=== PATIENT | female | born 1965 | race Caucasian/White ===

== ENCOUNTER → 2017-06-24 14:30 | Outpatient (CLI) | payer OTHER, SELFPAY ==
[2017-06-24 16:52] LABS: Free T3 2.1 pg/mL (2.18-3.98); T4 Free Direct 0.81 ng/dL (0.76-1.46); Thyroid Stim Hormone (TSH) 2.55 uIU/mL (0.358-3.74)
== END ==
PROVIDERS: Family Provider Family Medicine; PCP Family Medicine; Visit Provider Obstetrics & Gynecology
DX: N91.1 Secondary amenorrhea (principal)
CPT/HCPCS: 36415; 84439; 84443; 84481

== ENCOUNTER → 2017-08-18 09:10 | Outpatient (CLI) | payer OTHER, SELFPAY ==
[2017-08-18 11:15] LABS: Free T3 2.2 pg/mL (2.18-3.98); Thyroid Stim Hormone (TSH) 2.26 uIU/mL (0.358-3.74)
[2017-08-19 12:15] LABS: Progesterone Level 12.91 ng/mL (See Comment)
== END ==
PROVIDERS: Visit Provider Obstetrics & Gynecology
DX: G43.809 Other migraine, not intractable, without status migrainosus (principal); T38.5X5A Adverse effect of other estrogens and progestogens, initial encounter; N94.3 Premenstrual tension syndrome
CPT/HCPCS: 36415; 82670; 83036; 84144; 84443; 84481

== ENCOUNTER → 2017-11-14 07:29 | Outpatient (CLI) | payer OTHER, SELFPAY | PROVIDERS: Family Provider Family Medicine; PCP Family Medicine; Visit Provider Obstetrics & Gynecology | DX: Z12.31 Encounter for screening mammogram for malignant neoplasm of breast (principal) | CPT/HCPCS: 77063; 77067 ==

== ENCOUNTER → 2017-11-22 09:55 | Outpatient (CLI) | payer OTHER, SELFPAY | PROVIDERS: Family Provider Family Medicine; PCP Family Medicine; Visit Provider Obstetrics & Gynecology | DX: N60.02 Solitary cyst of left breast (principal) | CPT/HCPCS: 76642 ==

== ENCOUNTER 2017-12-09 07:31 | Day surgery (SDC) | payer OTHER, SELFPAY ==
[2017-12-09 08:01] VITALS: BP 113/81; PULSE 78; RESP 12; TEMP 36.6; O2SAT 100
[2017-12-09 09:00] VITALS: BP 100/64; BP 113/81; PULSE 71; RESP 16; TEMP 36.7; O2SAT 94
--- NOTE | 2017-12-09 09:01 | OP.ENDO_ITS ---
Patient Name: Jenny Gibson Procedure Date: 12/09/2017 8:21 AM Date of : 1965 Age: 52 Procedure: Colonoscopy Indications: Screening for malignant neoplasm in the colon, Screening for colorectal malignant neoplasm Providers: Dayron Clayton MD Referring MD: Cornelia Smith Medicines: Monitored Anesthesia Care Patient Profile: Last Colonoscopy: none. The patient's first colonoscopy is today. Complications: No immediate complications. Procedure: Pre-Anesthesia Assessment: - Prior to the procedure, a History and Physical was performed, and patient medications and allergies were reviewed. The patient's tolerance of previous anesthesia was also reviewed. The risks and benefits of the procedure and the sedation options and risks were discussed with the patient. All questions were answered, and informed consent was obtained. Prior Anticoagulants: The patient has taken no previous anticoagulant or antiplatelet agents. After reviewing the risks and benefits, the patient was deemed in satisfactory condition to undergo the procedure. After I obtained informed consent, the scope was passed under direct vision. Throughout the procedure, the patient's blood pressure, pulse, and oxygen saturations were monitored continuously. The colonoscope was introduced through the anus and advanced to the cecum, identified by appendiceal orifice and ileocecal valve. The colonoscopy was performed without difficulty. The patient tolerated the procedure well. The quality of the bowel preparation was adequate. Scope In: 8:39:32 AM Scope Withdrawal Time 0 hours 6 minutes 20 seconds Scope Out: 8:52:39 AM Total Procedure Duration Time 0 hours 13 minutes 7 seconds Findings: The colon (entire examined portion) appeared normal. The retroflexed view of the distal rectum and anal verge was normal and showed no anal or rectal abnormalities. Impression: - The entire examined colon is normal. - The distal rectum and anal verge are normal on retroflexion view. - No specimens collected. Recommendation: - Repeat colonoscopy in 10 years. - Resume regular diet. - Continue present medications. Procedure Code(s): --- Professional --- 94678, PT, Colonoscopy, flexible; diagnostic, including collection of specimen(s) by brushing or washing, when performed (separate procedure) Diagnosis Code(s): --- Professional --- Z12.11, Encounter for screening for malignant neoplasm of colon CPT copyright 2017 [employer]. All rights reserved. The codes documented in this report are preliminary and upon promotions specialist review may be revised to meet current compliance requirements. MD Dayron Rosario MD 12/09/2017 9:01:20 AM This report has been signed electronically. Number of Addenda: 0 Note Initiated On: 12/09/2017 8:21 AM
[2017-12-09 09:05] VITALS: BP 113/81; BP 95/66; PULSE 70; RESP 16; O2SAT 98
[2017-12-09 09:10] VITALS: BP 113/81; BP 92/62; PULSE 70; RESP 16; O2SAT 95
[2017-12-09 09:15] VITALS: BP 100/55; BP 113/81; PULSE 66; RESP 18; TEMP 36.8; O2SAT 99
[2017-12-09 09:36] VITALS: BP 113/81
== END 2017-12-09 09:42 | disposition home or self-care (01) ==
LOC: EN 07:31 → AC 07:32
PROVIDERS: Family Provider Family Medicine; PCP Family Medicine; Visit Provider Surgery
PROC: 0DJD8ZZ Inspection of Lower Intestinal Tract, Via Natural or Artificial Opening Endoscopic (ICD-10-PCS; CPT 45378; principal; 2017-12-09 08:25)
DX: Z12.11 Encounter for screening for malignant neoplasm of colon (principal)
CPT/HCPCS: 45378; J7120

== ENCOUNTER → 2017-12-15 11:17 | Outpatient (CLI) | payer OTHER, SELFPAY ==
[2017-12-21 12:02] LABS: HPV Reflexed? NOT INDICATED
== END ==
PROVIDERS: Family Provider Family Medicine; PCP Family Medicine; Visit Provider Obstetrics & Gynecology
DX: Z12.4 Encounter for screening for malignant neoplasm of cervix (principal)
CPT/HCPCS: 88175; G0145

== ENCOUNTER → 2018-01-05 09:55 | Outpatient (CLI) | payer OTHER, SELFPAY ==
--- NOTE | 2018-01-05 10:02 | US_ITS ---
STUDY: ULTRASOUND OF THE FEMALE PELVIS - COMPLETE REASON FOR EXAM: Female, 52 years old. Abnormal Pap. Pelvic pain LMP: 01/01/2018 TECHNIQUE: Transabdominal and Transvaginal TECHNICAL QUALITY: Adequate. COMPARISON: None. FINDINGS: The uterus is anteverted and is in a midline position. The uterus measures 9 x 5.2 cm. Normal uterine cervix. The endometrium measures 5 mm in thickness, and is hyperechoic. There is no demonstrated endometrial mass. Heterogeneous uterus is noted with multiple fibroids. Largest is noted in the posterior wall measuring 2.7 x 2.4 x 2.1 cm. I.U.D. - The patient does not have an I.U.D. The right ovary is visualized. The right ovary measures 2.3 x 3 x 2.0 cm. There is no right ovarian cyst or ovarian mass. There is no visualized right adnexal mass or complex lesion. There is normal arterial and normal venous vascularity. The left ovary is visualized. The left ovary measures 2.7 x 2.1 x 2.4 cm. There is no left ovarian cyst or ovarian mass. There is no visualized left adnexal mass or complex lesion. There is normal arterial and normal venous vascularity. There is no fluid in the cul-de-sac. The pre void volume of the bladder was 164 ml. ml. Polycystic ovary disease: No. US/Transvaginal Non- IMPRESSION: Uterine fibroids. Otherwise, unremarkable exam Electronically Signed: Sebastian Bolivar DO at 11:47 EDT Tel , Service support ,
--- NOTE | 2018-01-05 10:02 | US_ITS ---
STUDY: ULTRASOUND OF THE FEMALE PELVIS - COMPLETE REASON FOR EXAM: Female, 52 years old. Abnormal Pap. Pelvic pain LMP: 01/01/2018 TECHNIQUE: Transabdominal and Transvaginal TECHNICAL QUALITY: Adequate. COMPARISON: None. FINDINGS: The uterus is anteverted and is in a midline position. The uterus measures 9 x 5.2 cm. Normal uterine cervix. The endometrium measures 5 mm in thickness, and is hyperechoic. There is no demonstrated endometrial mass. Heterogeneous uterus is noted with multiple fibroids. Largest is noted in the posterior wall measuring 2.7 x 2.4 x 2.1 cm. I.U.D. - The patient does not have an I.U.D. The right ovary is visualized. The right ovary measures 2.3 x 3 x 2.0 cm. There is no right ovarian cyst or ovarian mass. There is no visualized right adnexal mass or complex lesion. There is normal arterial and normal venous vascularity. The left ovary is visualized. The left ovary measures 2.7 x 2.1 x 2.4 cm. There is no left ovarian cyst or ovarian mass. There is no visualized left adnexal mass or complex lesion. There is normal arterial and normal venous vascularity. There is no fluid in the cul-de-sac. The pre void volume of the bladder was 164 ml. ml. Polycystic ovary disease: No. US/Pelvic (Non ) IMPRESSION: Uterine fibroids. Otherwise, unremarkable exam Electronically Signed: Sebastian Bolivar DO at 11:47 EDT Tel , Service support ,
== END ==
PROVIDERS: Family Provider Family Medicine; PCP Family Medicine; Referring Provider Obstetrics & Gynecology; Visit Provider Obstetrics & Gynecology
DX: N92.6 Irregular menstruation, unspecified (principal); N91.2 Amenorrhea, unspecified
CPT/HCPCS: 76830; 76856; 93976

== ENCOUNTER → 2018-07-14 13:33 | Outpatient (CLI) | payer OTHER, SELFPAY ==
--- NOTE | 2018-07-14 13:36 | RAD_ITS ---
STUDY: X-RAY - RIGHT HAND REASON FOR EXAM: Female, 52 years old. Pain TECHNIQUE: 3 view(s) of the hand. COMPARISON: None. FINDINGS: Normal radiocarpal articulation. Normal distal radioulnar joint. Normal visualized carpal bones. Normal carpal articulations Normal carpometacarpal articulation of the thumb. Normal second through fifth carpometacarpal joints. Normal metacarpi. Normal metacarpophalangeal joint of the thumb. Normal interphalangeal joint of the thumb. Normal proximal and distal phalanges of the thumb. Normal metacarpophalangeal joints of the second through fifth fingers. PIP and DIP joint arthrosis, most pronounced in the distal interphalangeal joint of the fifth finger. Normal phalanges of the second through fifth fingers. The soft tissue structures are unremarkable. RAD/Hand Min 3 Views IMPRESSION: Distal arthrosis, no demonstrated fracture or suspicious osseous lesion Electronically Signed: Frank Narayan MD at 14:13 EDT , Service support ,
== END ==
PROVIDERS: Family Provider Family Medicine; PCP Family Medicine; Referring Provider Family Medicine; Visit Provider Family Medicine
DX: M79.641 Pain in right hand (principal)
CPT/HCPCS: 73130

== ENCOUNTER → 2018-08-08 15:48 | Outpatient (CLI) | payer OTHER, SELFPAY ==
--- NOTE | 2018-08-08 16:03 | BD_ITS ---
STUDY: DUAL ENERGY X-RAY ABSORPTIOMETRY / DXA REASON FOR EXAM: Female, 53 years old. Loss of height. History of stress fractures. TECHNIQUE: Bone Mineral Density (BMD) measurements of lumbar spine and bilateral hips were obtained. COMPARISON: Comparison is made with prior study dated October 07, 2011. FINDINGS: Lumbar Spine (L1-L4): g/cm2 (1.231) / T-score (0.4) / Z-score (1.0) Findings are suggestive of normal bone density with a low fracture risk. Left Femur Total: g/cm2 (0.989) / T-score (-0.1) / Z-score (0.4) Left Femoral Neck: g/cm2 (0.949) / T-score (-0.6) / Z-score (0.2) Right Femur Total: g/cm2 (0.965) / T-score (-0.3) / Z-score (0.2) Right Femoral Neck: g/cm2 (0.881) / T-score (-1.1) / Z-score (0.3) The T-Scores on the most recent prior examination were: Lumbar Spine (L1-L4): There has been improvement of bone density since the previous examination. Left Femur Total: which represents an improvement of 2.8%. Right Femur Total: which represents an improvement of 7.2%. BD/Dexa Bone Density Study IMPRESSION: The patient is considered osteopenic as outlined below according to World Felix Organization (WHO) criteria with a low fracture risk. There has been improvement of bone density since the previous examination. Reference Information: The T-score is the number of standard deviations above or below the standard which is normal for young adults at their peak bone mineral density. The World Health Organization (WHO) interprets the T-scores as follows: Above -1 Normal bone density Between -1 and -2.5 Osteopenia Equal to / or below -2.5 Osteoporosis As a practical clinical guideline, osteopenia may be graded as follows: Mild -1 through -1.5 Moderate -1.6 through -2.0 Severe -2.1 through -2.4 The Z-score is the number of standard deviations above or below age-matched controls. A Z-score of less than -1.5 would be considered abnormal. References: 1. NIH Osteoporosis and Related Bone Diseases http://www.osteo.org 2. International Society for Clinical Densitometry http://www.iscd.org 3. National Osteoporosis Foundation http://www.nof.org Electronically Signed: Jose A Barnes, at 8:19 EDT , Service support ,
== END ==
PROVIDERS: Family Provider Family Medicine; PCP Family Medicine; Visit Provider Family Medicine
DX: M85.80 Other specified disorders of bone density and structure, unspecified site (principal)
CPT/HCPCS: 77080

== ENCOUNTER → 2018-08-10 12:41 | Outpatient (CLI) | payer OTHER, SELFPAY ==
--- NOTE | 2018-08-10 12:42 | RAD_ITS ---
STUDY: X-RAY - RIGHT TIBIA AND FIBULA REASON FOR EXAM: Female, 53 years old. Pain along the distal tibia. No known injuries. TECHNIQUE: 2 view(s) of the tibia and fibula were obtained. COMPARISON: None. FINDINGS: Normal visualized tibia. Normal visualized fibula. The soft tissue structures are unremarkable. RAD/Tibia & Fibula 2 Views IMPRESSION: Normal x-ray examination of the tibia and fibula. Electronically Signed: Jose A Barnes, at 14:06 EDT , Service support ,
== END ==
PROVIDERS: Family Provider Family Medicine; PCP Family Medicine; Referring Provider Physician Assistant; Visit Provider Physician Assistant
DX: M79.661 Pain in right lower leg (principal)
CPT/HCPCS: 73590

== ENCOUNTER 2018-08-15 11:29 | Outpatient (RCR) | payer OTHER, SELFPAY | END 2018-08-18 23:59 | LOC: NS 11:29 | PROVIDERS: Family Provider Family Medicine; PCP Family Medicine; Visit Provider Family Medicine | DX: E66.9 Obesity, unspecified (principal); Z68.29 Body mass index [BMI] 29.0-29.9, adult; Z71.3 Dietary counseling and surveillance | CPT/HCPCS: 97802 ==

== ENCOUNTER → 2018-08-17 15:37 | Outpatient (CLI) | payer OTHER, SELFPAY ==
--- NOTE | 2018-08-17 15:43 | MRI_ITS ---
PROCEDURE: MRI LOWER EXTREMITY RIGHT TIBIA/FIBULA REASON FOR EXAM: Female, 53 years old. . Pain. Injury. TECHNIQUE: Standardized fat and water weighted pulse sequences were obtained in all 3 orthogonal planes. COMPARISON: X-ray August 10, 2018 FINDINGS: There is marrow edema of the distal shaft of the tibia, series 3 images and . There is adjacent periosteal edema. There is anterior subcutaneous edema. Normal fibula, without a periosteal, cortical or cancellous marrow abnormality. Normal anterior, lateral, and posterior calf compartments, with normal muscles, crural fascia and intermuscular septa. There is no solid, cystic or lipomatous mass lesion of the subcutis adipose space. MRI/Lower Ext/No Jt/w/o IMPRESSION: Stress fracture of the distal tibia. Electronically Signed: Isai Begum MD at 22:20 EDT , Service support ,
== END ==
PROVIDERS: Family Provider Family Medicine; PCP Family Medicine; Referring Provider Physician Assistant; Visit Provider Physician Assistant
DX: S86.891A Other injury of other muscle(s) and tendon(s) at lower leg level, right leg, initial encounter (principal)
CPT/HCPCS: 73718

== ENCOUNTER 2018-08-29 13:57 | Outpatient (RCR) | payer OTHER, SELFPAY | END 2018-09-17 23:59 | LOC: NS 13:57 | PROVIDERS: Family Provider Family Medicine; PCP Family Medicine; Visit Provider Family Medicine | DX: E66.9 Obesity, unspecified (principal); Z68.29 Body mass index [BMI] 29.0-29.9, adult; Z71.3 Dietary counseling and surveillance | CPT/HCPCS: 97803 ==

== ENCOUNTER 2018-10-03 10:00 | Outpatient (RCR) | payer OTHER, SELFPAY | END 2018-10-18 23:59 | LOC: NS 10:00 | PROVIDERS: Family Provider Family Medicine; PCP Family Medicine; Visit Provider Family Medicine | DX: E66.9 Obesity, unspecified (principal); Z68.29 Body mass index [BMI] 29.0-29.9, adult; Z71.3 Dietary counseling and surveillance | CPT/HCPCS: 97803 ==

== ENCOUNTER 2018-10-31 09:57 | Outpatient (RCR) | payer OTHER, SELFPAY | END 2018-10-31 23:59 | disposition home or self-care (01) | LOC: NS 09:57 | PROVIDERS: Family Provider Family Medicine; PCP Family Medicine; Visit Provider Family Medicine | DX: E66.9 Obesity, unspecified (principal); Z68.29 Body mass index [BMI] 29.0-29.9, adult; Z71.3 Dietary counseling and surveillance | CPT/HCPCS: 97803 ==

== ENCOUNTER 2018-11-09 17:00 | Outpatient (RCR) | payer OTHER, SELFPAY ==
--- NOTE | 2018-09-25 07:33 | HP.PTREVAL ---
KETAN Howard, It has been my pleasure to treat SHIRA MASON over the last 6 visits for R medial tibial stress syndrome. Please see the progress note below for an update on the physical therapy plan of care! Subjective: Hasn't worn boot in a week. Intermittently prior to that on vacation. No more deep ache. Does get a spasm now and then without reason transiently. Some days are perfect adn the next day may get spasms. Hasn't started mowing, has a big yard and has self propelled walk behind. Doing HEP daily. Activities otherwise pretty normal. When healthy enjoys video tapes and TM/low impact cardio. Objective/Function: Full and symmetrical aROM ankles and strength. No pain with contractions. Steps normal and reciprocal, walks without antalgia. Pt doing well but needs to be weaned back to ex adn walking. Plan Plan: Pt to add foot drills at home and start to wean back to mowing and walking per instruct adn call if problems. 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 Plan to see her for 3-4 visits in October to teach gym program. She will call prior if pain returns. Goals Goal 1:: Walk with boot without pain x one week. Goal Time Frame: 2-4 Weeks Goal Progress: Goal Met Goal 2:: 5 degrees DF AROM withotu pain R ankle Goal Time Frame: 4-6 Weeks Goal Progress: Goal Met Goal 3:: Pt feel 90% better in leg pain and ready to reinitiate walking for fitness Goal Time Frame: 4-6 Weeks Goal Progress: Progressing Anticipated Interventions Patient/Client Instruction: Educate patient on: Condition, Plan of Care For the Purpose of:: To decrease pain, To decrease swelling/inflammation, To improve muscle performance and motor function, To improve performance and independence with ADL's Therapeutic Exercise to Include: Strength training, Flexibilty training, Gait and locomotor training, Passive ROM, Active ROM For the Purpose of:: To decrease pain, To decrease swelling/inflammation, To improve ability of physical actions for home/community/work/leisure, To improve gait and locomotor functions Manual Therapy Techniques to Include: Mobilization, Soft tissue mobilization For the Purpose of:: To decrease pain, To improve muscle performance and motor function, To improve ability of physical actions for home/community/work/leisure Orthotics: Shoe insert For the Purpose of:: To decrease pain Please do not hesitate to contact me at [phone] by phone or if you have questions or concerns regarding this new plan of care! Sincerely, Richard Atwood, DPT, OCS, CSCS
--- NOTE | 2018-11-09 17:33 | HP.PTDCSUM ---
HP - PT D/C Summary It has been my pleasure to treat SHIRA MASON under orders from KETAN Howard, for the diagnosis of R medial tibial stress syndrome for a total of 7 visit(s). Discharge Date: 11/09/18 Please see the following information for a summary of their discharge status. - Subjective Subjective: Got back to mowing adn feeling pretty good. Going days at a time without feeling grabby or pain. Rarely pain now. Mowed the whole yard Tuesday. Hasn't started walking yet but will. - Pain R medial ankle Pain Intensity (Out of 10): 0 - Overall Improvement % Improvement: 90 - Objective Objective/Function: Full and normal aROM adn strength B ankles. No unusua tenderness R to L shins. Walks normal - Goals Goal 1:: Walk with boot without pain x one week. Goal Progress: Goal Met Goal 2:: 5 degrees DF AROM withotu pain R ankle Goal Progress: Goal Met Goal 3:: Pt feel 90% better in leg pain and ready to reinitiate walking for fitness Goal Progress: Goal Met - Plan Plan: d/c to continue warm up for feet adn gradual walking program on own. - D/C Information Discharge Comments: Pt doing well with current loasd, will see endorcrinologist to see why this keeps happening. Will continue warm ups adn start gradual walking program. Will contact doctor if further problems. If there are questions or concerns regarding this patient's physical therapy, please feel free to call me at [phone]. Thank you for the referral of this patient. Sincerely, Richard Atwood, DPT, OCS, CSCS
== END 2018-11-09 19:00 | disposition home or self-care (01) ==
LOC: PT 17:00
PROVIDERS: Family Provider Family Medicine; PCP Family Medicine; Referring Provider Physician Assistant; Visit Provider Physician Assistant
DX: M76.819 Anterior tibial syndrome, unspecified leg (principal)
CPT/HCPCS: 97110; 97161; 97530

== ENCOUNTER → 2018-11-21 07:41 | Outpatient (CLI) | payer OTHER, SELFPAY ==
--- NOTE | 2018-11-21 07:44 | BI_ITS ---
MAMMOGRAPHY - BILATERAL SCREENING REASON FOR EXAM: Female, 53 years old. Routine annual screening examination. PERTINENT HISTORY: Non-contributory. TECHNIQUE: Digital bilateral breast shameka (3D mammographic acquisition) in the CC and MLO projections. 2-D mediolateral oblique (MLO) and craniocaudad (CC) views of both breasts were obtained. CAD: Full Field Digital Mammography with Computer Added Detection was performed. COMPARISON: Comparison is made with prior examination November 14, 2017 and November 11, 2016. FINDINGS: Breast Composition: The breasts are heterogeneously dense, which may obscure small masses. There is a 2 cm x 1.7 cm well-defined nodule in the upper outer aspect of the left breast. This is essentially unchanged. This was demonstrated to be a small cyst on prior ultrasounds of the left breast as well as MRI of the breast. No other significant abnormalities are identified. There has been no significant change since the prior study. BI/SCREEN MAMM (CAD) W/SHAMEKA BILAT IMPRESSION: Stable bilateral screening mammogram. Yearly follow-up mammogram recommended. (A) ASSESSMENT CATEGORY: BIRADS Category 2: Benign. A letter regarding these results will be sent to the patient by the facility within 30 days. Approximately 10% of breast cancers are not detected by mammography. A normal mammogram should not delay biopsy of a clinically suspicious abnormality. [id number] Electronically Signed: Jose A Barnes, at 10:01 EDT , Service support ,
== END ==
PROVIDERS: Family Provider Family Medicine; PCP Family Medicine; Referring Provider Obstetrics & Gynecology; Visit Provider Obstetrics & Gynecology
DX: Z12.31 Encounter for screening mammogram for malignant neoplasm of breast (principal)
CPT/HCPCS: 77063; 77067

== ENCOUNTER → 2018-12-19 13:44 | Outpatient (CLI) | payer OTHER, SELFPAY ==
[2018-12-22 13:11] LABS: HPV APTIMA, High Risk Negative (Negative)
== END ==
PROVIDERS: Visit Provider Obstetrics & Gynecology
DX: Z12.4 Encounter for screening for malignant neoplasm of cervix (principal)
CPT/HCPCS: 87624; 88175; G0145

== ENCOUNTER → 2019-01-15 07:45 | Outpatient (CLI) | payer OTHER, SELFPAY ==
[2019-01-15 09:46] LABS: Vitamin D,25 Hydroxy 24.1 ng/mL (29.95-100.01)
[2019-01-15 09:47] LABS: PTHIN 66.3 pg/mL (18.4-80.1)
== END ==
PROVIDERS: Family Provider Family Medicine; PCP Family Medicine; Referring Provider Internal Medicine Endocrinology, Diabetes & Metabolism; Visit Provider Internal Medicine Endocrinology, Diabetes & Metabolism
DX: E55.9 Vitamin D deficiency, unspecified (principal); M85.80 Other specified disorders of bone density and structure, unspecified site
CPT/HCPCS: 36415; 82306; 83970

== ENCOUNTER 2019-04-03 16:36 | Outpatient (RCR) | payer OTHER, SELFPAY ==
--- NOTE | 2019-04-04 06:59 | MASS.EVAL ---
Massage Therapy Evaluation: Initial Evaluation Date: 04/03/2019 /Age: 6 1965 Diagnosis: neck and shoulder pain Goals: decrease muscle tension and pain Plan: To be seen one time per month or as needed for a total of ten treatments.
--- NOTE | 2020-02-28 08:56 | MASS.DISCH ---
Massage Therapy Discharge Summary: Initial Evaluation Date: 04/03/2019 Diagnosis: NECK/BACK PAIN No. of Visits: ONE Date of last visit: 04/03/2019 This patient is being discharged from our care at the [facility]. Thank you, Martina Dang LMT
== END 2019-04-03 19:00 | disposition home or self-care (01) ==
LOC: MASS 16:36
PROVIDERS: Family Provider Family Medicine; PCP Family Medicine; Referring Provider Family Medicine; Visit Provider Family Medicine
DX: M54.2 Cervicalgia (principal); M54.6 Pain in thoracic spine
CPT/HCPCS: 97124

== ENCOUNTER → 2019-08-31 09:14 | Outpatient (CLI) | payer OTHER, SELFPAY ==
[2019-08-31 10:18] LABS: Vitamin B12 641 pg/mL (211-911); Vitamin D,25 Hydroxy 40.6 ng/mL
[2019-08-31 10:26] LABS: Cholesterol 242 mg/dL (200); High Density Lipoprotein 59 mg/dL; T4 Free Direct 0.94 ng/dL (0.76-1.46); Triglycerides 139 mg/dL; Very Low Density Lipoprotein 28 mg/dL (5-40)
== END ==
PROVIDERS: PCP Family Medicine; Referring Provider Family Medicine; Visit Provider Family Medicine
DX: E03.9 Hypothyroidism, unspecified (principal); R53.83 Other fatigue; E55.9 Vitamin D deficiency, unspecified; E78.5 Hyperlipidemia, unspecified
CPT/HCPCS: 36415; 80061; 82306; 82607; 84439; 84443; 84481

== ENCOUNTER → 2019-11-06 07:23 | Outpatient (CLI) | payer OTHER, SELFPAY ==
[2019-11-06 08:11] LABS: Free T3 2.5 pg/mL (2.18-3.98); T4 Free Direct 0.97 ng/dL (0.76-1.46); Thyroid Stim Hormone (TSH) 1.51 uIU/mL (0.358-3.74)
== END ==
PROVIDERS: PCP Family Medicine; Referring Provider Family Medicine; Visit Provider Family Medicine
DX: E03.9 Hypothyroidism, unspecified (principal)
CPT/HCPCS: 36415; 84439; 84443; 84481

== ENCOUNTER → 2019-12-11 07:05 | Outpatient (CLI) | payer OTHER, SELFPAY ==
--- NOTE | 2019-12-11 07:07 | BI_ITS ---
MAMMOGRAPHY - BILATERAL SCREENING REASON FOR EXAM: Female, 54 years old. Routine annual screening examination. PERTINENT HISTORY: Non-contributory. TECHNIQUE: Digital bilateral breast shameka (3D mammographic acquisition) in the CC and MLO projections. 2-D mediolateral oblique (MLO) and craniocaudad (CC) views of both breasts were obtained. CAD: Full Field Digital Mammography with Computer Added Detection was performed. COMPARISON: Comparison is made with prior study dated 11/21/2018 and 11/14/2017. FINDINGS: Breast Composition: The breasts are heterogeneously dense, which may obscure small masses. The previously seen nodular density in the upper outer aspect of the left breast has increased slightly in size. It presently measures 2.5 cm x 1.9 cm. This was demonstrated to be a cyst on prior ultrasound of the left breast and prior MRI of the left breast. Stable benign-appearing bilateral axillary lymph nodes. No other significant abnormalities are identified. There has been no significant change since the prior study. BI/SCREEN MAMM (CAD) W/SHAMEKA BILAT IMPRESSION: Slight increase in size of the previously seen nodule in the upper outer quadrant of the left breast. Yearly follow-up mammogram recommended. (A) ASSESSMENT CATEGORY: BIRADS Category 2: Benign. A letter regarding these results will be sent to the patient by the facility within 30 days. Approximately 10% of breast cancers are not detected by mammography. A normal mammogram should not delay biopsy of a clinically suspicious abnormality. [id number] Electronically Signed: Jose A Barnes, at 9:23 EDT , Service support ,
== END ==
PROVIDERS: PCP Family Medicine; Referring Provider Family Medicine; Visit Provider Family Medicine
DX: Z12.31 Encounter for screening mammogram for malignant neoplasm of breast (principal)
CPT/HCPCS: 77063; 77067

== ENCOUNTER → 2019-12-25 09:20 | Outpatient (CLI) | payer OTHER, SELFPAY ==
[2019-12-25 11:23] LABS: Estradiol 32.5 pg/mL
[2019-12-26 08:54] LABS: Vitamin D,25 Hydroxy 34.3 ng/mL
[2019-12-26 09:18] LABS: Progesterone Level < 0.21 ng/mL (See Comment)
[2019-12-28 17:29] LABS: Free T3 3.2 pg/mL (2.18-3.98); T4 Total, Thyroxin 9.3 ug/dL (4.8-13.9); Thyroid Stim Hormone (TSH) 1.59 uIU/mL (0.358-3.74)
== END ==
PROVIDERS: PCP Family Medicine; Visit Provider Obstetrics & Gynecology
DX: E28.8 Other ovarian dysfunction (principal); N95.1 Menopausal and female climacteric states; R63.4 Abnormal weight loss; R53.83 Other fatigue; E03.9 Hypothyroidism, unspecified
CPT/HCPCS: 36415; 82306; 82533; 82627; 82670; 84144; 84270; 84403; 84436; 84439; 84443; 84480; 84481; 82626

== ENCOUNTER → 2019-12-28 07:57 | Outpatient (CLI) | payer OTHER, SELFPAY ==
--- NOTE | 2019-12-28 07:59 | US_ITS ---
STUDY: ULTRASOUND TRANSVAGINAL CLINICAL: Female, 54 years old. LLQ pain TECHNIQUE: Transvaginal imaging with sagittal and coronal reconstruction. COMPARISON: Prior pelvic ultrasound of 01/05/2018 FINDINGS: The uterus is midline and anteflexed and measures 10.1 x 6.9 x 5.8 cm. There are multiple uterine fibroids measuring 2.9 x 2.4 x 2.3 cm, 2.2 x 1.9 x 1.4 cm and 1.1 x 1.0 x 0.6 cm. Normal endometrial thickness measuring 4.5 mm. There are no endometrial masses, and there is no fluid in the endometrial cavity. Normal uterine cervix. Normal right ovary, measuring 3.2 x 3.0 x 2.9 cm. There is no dominant mass or cyst. Normal DOPPLER flow. Normal left ovary, measuring 4.6 x 3.1 x 3.8 cm. There is a 3.0 x 2.6 x 2.8 cm simple cyst of the left ovary. Normal DOPPLER flow. There is no free fluid in the pelvis. Polycystic ovary disease: No. US/Transvaginal Non- IMPRESSION: Multi fibroid uterus as described above with normal endometrial thickness. Normal right ovary. 3.0 x 2.6 x 2.8 cm simple cyst of the left ovary. No additional adnexal masses or free fluid. Electronically Signed: Elysia Robbins MD at 16:45 EDT , Service support ,
== END ==
PROVIDERS: PCP Family Medicine; Referring Provider Obstetrics & Gynecology; Visit Provider Obstetrics & Gynecology
DX: E28.8 Other ovarian dysfunction (principal); R10.32 Left lower quadrant pain
CPT/HCPCS: 76830

== ENCOUNTER → 2020-01-03 16:48 | Outpatient (CLI) | payer OTHER, SELFPAY ==
[2020-01-03 18:28] LABS: CRP, High Sensitivity Cardiac 0.67 mg/L
== END ==
PROVIDERS: PCP Family Medicine; Referring Provider Obstetrics & Gynecology; Visit Provider Obstetrics & Gynecology
DX: Z83.42 Family history of familial hypercholesterolemia (principal); Z82.49 Family history of ischemic heart disease and other diseases of the circulatory system
CPT/HCPCS: 36415; 86141

== ENCOUNTER 2020-07-15 17:30 | Outpatient (RCR) | payer OTHER, SELFPAY | END 2020-07-18 23:59 | LOC: NS 17:30 | PROVIDERS: PCP Family Medicine; Visit Provider Family Medicine | DX: Z71.3 Dietary counseling and surveillance (principal); E66.9 Obesity, unspecified | CPT/HCPCS: 97802; 97803 ==

== ENCOUNTER 2020-09-01 16:37 | Outpatient (RCR) | payer OTHER, SELFPAY | END 2020-09-01 23:59 | disposition home or self-care (01) | LOC: NS 16:37 | PROVIDERS: PCP Family Medicine; Visit Provider Family Medicine | DX: Z71.3 Dietary counseling and surveillance (principal); E66.9 Obesity, unspecified | CPT/HCPCS: 97803 ==

== ENCOUNTER → 2020-12-09 07:07 | Outpatient (CLI) | payer OTHER, SELFPAY ==
--- NOTE | 2020-12-09 07:09 | BI_ITS ---
MAMMOGRAPHY - BILATERAL SCREENING REASON FOR EXAM: Female, 55 years old. Routine annual screening examination. PERTINENT HISTORY: Non-contributory. TECHNIQUE: Digital bilateral breast shameka (3D mammographic acquisition) in the CC and MLO projections. 2-D mediolateral oblique (MLO) and craniocaudad (CC) views of both breasts were obtained. CAD: Full Field Digital Mammography with Computer Added Detection was performed. COMPARISON: Comparison is made with prior study dated 12/11/2019 and 11/21/2018. FINDINGS: Breast Composition: The breasts are heterogeneously dense, which may obscure small masses. There is a 1.9 cm x 3 cm well-defined nodule in the upper lateral aspect of the left breast. This is essentially unchanged. This was demonstrated to be a cyst on prior sonogram. Stable benign-appearing bilateral axillary lymph nodes. No other significant abnormalities are identified. There has been no significant change since the prior study. BI/SCRN MAMM (CAD)W/SHAMEKA BILAT IMPRESSION: Stable bilateral screening mammogram. Yearly follow-up mammogram recommended. (A) ASSESSMENT CATEGORY: BIRADS Category 2: Benign. A letter regarding these results will be sent to the patient by the facility within 30 days. Approximately 10% of breast cancers are not detected by mammography. A normal mammogram should not delay biopsy of a clinically suspicious abnormality. [id number] Electronically Signed: Jose A Barnes MD at 9:04 EDT , Service support ,
== END ==
PROVIDERS: PCP Family Medicine; Referring Provider Obstetrics & Gynecology; Visit Provider Obstetrics & Gynecology
DX: Z12.31 Encounter for screening mammogram for malignant neoplasm of breast (principal)
CPT/HCPCS: 77063; 77067

== ENCOUNTER → 2021-02-05 07:27 | Outpatient (CLI) | payer OTHER, SELFPAY ==
[2021-02-05 08:42] LABS: Cholesterol 254 mg/dL (200); High Density Lipoprotein 75 mg/dL; Triglycerides 118 mg/dL; Very Low Density Lipoprotein 24 mg/dL (5-40)
[2021-02-05 09:51] LABS: Free T3 2.1 pg/mL (2.18-3.98); T4 Free Direct 0.96 ng/dL (0.76-1.46); Thyroid Stim Hormone (TSH) 2.28 uIU/mL (0.358-3.74)
== END ==
PROVIDERS: PCP Family Medicine; Referring Provider Family Medicine; Visit Provider Family Medicine
DX: E78.5 Hyperlipidemia, unspecified (principal); E03.9 Hypothyroidism, unspecified
CPT/HCPCS: 36415; 80061; 84439; 84443; 84481

== ENCOUNTER 2021-04-28 07:47 | Outpatient (CLI) | payer OTHER, SELFPAY ==
[2021-04-28 08:00] LABS: Absolute Lymphocyte Count 1.06 X10^3/uL (0.83-4.51); Absolute Neutrophil Count 3.6 X10^3/uL (2.0-7.7); Basophil# 0.03 X10^3/uL; Basophil% 0.6 % (0-1); Eosinophil# 0.07 X10^3/uL; Eosinophils% 1.3 % (0-5); Hematocrit 40.8 % (37-47); Hemoglobin 13.7 g/dL (12.0-15.0); Lymphocyte # 1.06 X10^3/ul (0.83-4.51); Lymphocyte % 20.2 % (19-41); Mean Corp Hgb Conc 33.6 g/dL (32-36); Mean Corpuscular Hgb 29.5 pg (27.0-32.0); Mean Corpuscular Volume 87.9 fL (81-99); Mean Platelet Vol. 10.4 fl (6.2-12.0); Monocyte# 0.48 X10^3/uL; Monocyte% 9.1 % (0-10); NRBC Flagged by Analyzer 0 % (0-5); Neutrophil % 68.6 % (47-70); Platelet Count 211 K/mm3 (150-450); RBC Distribution Width CV 12.6 % (11.6-14.6); RBC Distribution Width SD 40.4 fl (35.1-43.9); Red Blood Count 4.64 M/mm3 (4.2-5.4); White Blood Count 5.3 K/mm3 (4.4-11.0)
[2021-04-28 08:36] LABS: ALB/GLOB Ratio 1.3 RATIO (0.9-2.4); AST(SGOT) 23 U/L (15-37); Alanine Aminotransfer ALT/SGPT 28 U/L (13-56); Albumin, Serum 4.3 g/dL (3.2-5.0); Alkaline Phosphatase 54 U/L (45-117); Anion Gap 7 (5-15); BUN 12 mg/dL (7-18); BUN/Creat Ratio 15.7 RATIO (10-20); Calcium,Total 9.3 mg/dL (8.5-10.1); Chloride 104 mmol/L (98-107); Cholesterol 195 mg/dL (200); Creatinine, Serum 0.77 mg/dL (0.55-1.02); EST Glomerular Filtration Rate 83 mL/min (>60); Est Glom Filt Rate - Afr Amer 101 mL/min (>60); Free T3 2.4 pg/mL (2.18-3.98); Globulin 3.4 g/dL (2.2-4.2); Glucose 97 mg/dL (74-106); High Density Lipoprotein 64 mg/dL; Protein, Total 7.7 g/dL (6.4-8.2); Sodium Level 139 mmol/L (136-145); Thyroid Stim Hormone (TSH) 1.55 uIU/mL (0.358-3.74); Triglycerides 116 mg/dL; Very Low Density Lipoprotein 23 mg/dL (5-40)
[2021-04-29 13:36] LABS: MG Sendout 2.6 mg/dL (1.6-2.3)
== END 2021-04-28 23:59 | disposition home or self-care (01) ==
LOC: LAB 07:48
PROVIDERS: PCP Family Medicine; Referring Provider Family Medicine; Visit Provider Family Medicine
DX: E78.5 Hyperlipidemia, unspecified (principal); E03.9 Hypothyroidism, unspecified; R00.2 Palpitations
CPT/HCPCS: 36415; 80053; 80061; 83735; 84439; 84443; 84481; 85025

== ENCOUNTER → 2021-08-13 | Outpatient (CLI) | payer OTHER, SELFPAY ==
[2021-08-13 10:16] LABS: Estradiol 197.2 pg/mL; Follicle Stimulating Hormone 35.1 mIU/mL
[2021-08-13 10:35] LABS: Progesterone Level 1.25 ng/mL (See Comment)
== END | disposition home or self-care (01) ==
LOC: LAB 08:33
PROVIDERS: PCP Family Medicine; Referring Provider Obstetrics & Gynecology; Visit Provider Obstetrics & Gynecology
DX: N91.2 Amenorrhea, unspecified (principal)
CPT/HCPCS: 36415; 82670; 83001; 84144

== ENCOUNTER → 2021-09-17 | Outpatient (CLI) | payer OTHER, SELFPAY ==
[2021-09-17 09:14] LABS: Free T3 2.5 pg/mL (2.18-3.98); T4 Free Direct 0.94 ng/dL (0.76-1.46); Thyroid Stim Hormone (TSH) 2.32 uIU/mL (0.358-3.74)
== END | disposition home or self-care (01) ==
LOC: LAB 07:32
PROVIDERS: PCP Family Medicine; Visit Provider Family Medicine
DX: E03.9 Hypothyroidism, unspecified (principal)
CPT/HCPCS: 36415; 84439; 84443; 84481

== ENCOUNTER → 2021-10-16 | Outpatient (CLI) | payer OTHER, SELFPAY ==
--- NOTE | 2021-10-16 12:10 | EKG12_ITS ---
Test Reason : ROUTINE Blood Pressure : / mmHG Vent. Rate : 065 BPM Atrial Rate : 065 BPM P-R Int : 172 ms QRS Dur : 072 ms QT Int : 442 ms P-R-T Axes : 029 002 029 degrees QTc Int : 459 ms Normal sinus rhythm Normal ECG Confirmed by KHALIDA GLEZ, MEKA ([id number]), state editor JUAN VILLALOBOS ([id number]) on 10/19/2021 11:36:25 AM Referred By: Skylar Chester Confirmed By:ALVA GAXIOLA MD
== END | disposition home or self-care (01) ==
LOC: PSN 12:09
PROVIDERS: PCP Family Medicine; Referring Provider Obstetrics & Gynecology; Visit Provider Obstetrics & Gynecology
DX: R07.9 Chest pain, unspecified (principal)
CPT/HCPCS: 93005

== ENCOUNTER → 2021-10-23 | Outpatient (CLI) | payer OTHER, SELFPAY ==
[2021-10-23 13:13] LABS: Erythrocyte Sedimentation Rate 7 mm/hr (0-30)
[2021-10-23 13:40] LABS: CRP < 2.90 mg/L (0.0-3.0); Rheumatoid Factor < 10.0 IU/mL (<15)
[2021-10-26 16:55] LABS: ANTINUCLEAR ANTIBODIES DIRECT Negative (Negative)
[2021-10-27 16:41] LABS: CCP IgG Antibodies 7 units (0-19)
== END | disposition home or self-care (01) ==
LOC: LAB.FUTURE 09:39 → LAB 12:48
PROVIDERS: PCP Family Medicine; Referring Provider Family Medicine; Visit Provider Family Medicine
DX: L40.9 Psoriasis, unspecified (principal); M25.50 Pain in unspecified joint
CPT/HCPCS: 36415; 85652; 86038; 86140; 86200; 86225; 86235; 86431

== ENCOUNTER 2021-11-09 15:24 | Outpatient (RCR) | payer OTHER, SELFPAY | END 2021-11-18 23:59 | LOC: NS 15:24 | PROVIDERS: PCP Family Medicine; Referring Provider Family Medicine; Visit Provider Family Medicine | DX: Z71.3 Dietary counseling and surveillance (principal); E66.9 Obesity, unspecified; Z68.31 Body mass index [BMI] 31.0-31.9, adult | CPT/HCPCS: 97802 ==

== ENCOUNTER 2021-12-01 07:29 | Outpatient (RCR) | payer OTHER, SELFPAY | END 2021-12-18 23:59 | LOC: NS 07:29 | PROVIDERS: PCP Family Medicine; Referring Provider Family Medicine; Visit Provider Family Medicine | DX: Z71.3 Dietary counseling and surveillance (principal); E66.9 Obesity, unspecified; Z68.30 Body mass index [BMI] 30.0-30.9, adult | CPT/HCPCS: 97803 ==

== ENCOUNTER → 2021-12-03 | Outpatient (CLI) | payer OTHER, SELFPAY ==
--- NOTE | 2021-12-03 14:59 | RAD_ITS ---
EXAM: XR LEFT FINGERS, 2 OR MORE VIEWS CLINICAL INDICATION: PAIN AND SWELLING TECHNIQUE: Frontal, lateral and oblique views of the fingers of the left hand. This report was created using [employer] report generation technology. COMPARISON: None. FINDINGS: BONES/JOINTS: Unremarkable. No acute fracture. No subluxation. Normal alignment. Preservation of the joint space. No sclerotic or destructive changes observed. SOFT TISSUES: Degenerative narrowing of the second DIP joint. Soft tissue swelling around the digit. No radiopaque foreign body. RAD/Finger(s) Min 2 Views IMPRESSION: Degenerative narrowing of the second DIP joint. Soft tissue swelling around the digit. Electronically Signed: Yunier Miguel MD at 15:33 EDT ,
== END | disposition home or self-care (01) ==
LOC: MTRAD 14:58
PROVIDERS: PCP Family Medicine; Referring Provider Family Medicine; Visit Provider Family Medicine
DX: M79.89 Other specified soft tissue disorders (principal)
CPT/HCPCS: 73140

== ENCOUNTER → 2021-12-11 | Outpatient (CLI) | payer OTHER, SELFPAY ==
--- NOTE | 2021-12-11 07:13 | BI_ITS ---
MAMMOGRAPHY - BILATERAL SCREENING 3-D TOMOSYNTHESIS REASON FOR EXAM: Female, 56 years old. cancer screening PERTINENT HISTORY: No significant family history. TECHNIQUE: 2-D mammograms and 3-D Tomosynthesis of the breast (s) were performed. CAD was performed. COMPARISON: 12/09/2020 FINDINGS: The breast composition is heterogeneously dense that can obscure small breast masses. Scattered benign calcifications are seen. No dominant mass in the right breast. No change in a 2 cm round circumscribed equal density mass in the upper outer quadrant left breast consistent with a known cyst. No suspicious calcifications.. No architectural distortion is identified. There is no skin thickening or retraction. There has been no significant change since the prior study. BI/SCRN MAMM (CAD)W/SHAMEKA BILAT IMPRESSION: No mammographic signs of malignancy. Routine yearly mammograms recommended. ASSESSMENT CATEGORY: BIRADS Category 2: Benign. A letter regarding these results will be sent to the patient by the facility within 30 days. FOLLOW UP RECOMMENDATION: Yearly follow up mammogram recommended. (A) Approximately 10% of breast cancers are not detected by mammography. A normal mammogram should not delay biopsy of a clinically suspicious abnormality. Electronically Signed: Ted Hernandez MD at 8:25 EDT ,
== END | disposition home or self-care (01) ==
LOC: OPBI 07:12
PROVIDERS: PCP Family Medicine; Visit Provider Obstetrics & Gynecology
DX: Z12.31 Encounter for screening mammogram for malignant neoplasm of breast (principal)
CPT/HCPCS: 77063; 77067

== ENCOUNTER 2021-12-31 07:42 | Outpatient (RCR) | payer OTHER, SELFPAY | END 2022-01-18 23:59 | LOC: NS 07:42 | PROVIDERS: PCP Family Medicine; Referring Provider Family Medicine; Visit Provider Family Medicine | DX: Z71.3 Dietary counseling and surveillance (principal); E66.9 Obesity, unspecified; Z68.30 Body mass index [BMI] 30.0-30.9, adult | CPT/HCPCS: 97803 ==

== ENCOUNTER 2022-02-08 08:00 | Outpatient (RCR) | payer OTHER, SELFPAY | END 2022-02-17 23:59 | LOC: NS 08:00 | PROVIDERS: PCP Family Medicine; Referring Provider Family Medicine; Visit Provider Family Medicine | DX: Z71.3 Dietary counseling and surveillance (principal); E66.9 Obesity, unspecified; Z68.30 Body mass index [BMI] 30.0-30.9, adult | CPT/HCPCS: 97803 ==

== ENCOUNTER 2022-03-09 07:28 | Outpatient (RCR) | payer OTHER, SELFPAY | END 2022-03-20 23:59 | LOC: NS 07:28 | PROVIDERS: PCP Family Medicine; Referring Provider Family Medicine; Visit Provider Family Medicine | DX: Z71.3 Dietary counseling and surveillance (principal); E66.9 Obesity, unspecified; Z68.30 Body mass index [BMI] 30.0-30.9, adult | CPT/HCPCS: 97803 ==

== ENCOUNTER → 2022-12-14 | Outpatient (CLI) | payer OTHER, SELFPAY ==
--- NOTE | 2022-12-14 07:16 | BI_ITS ---
MAMMOGRAPHY - BILATERAL SCREENING REASON FOR EXAM: Female, 57 years old. Routine annual screening examination. PERTINENT HISTORY: Non-contributory. TECHNIQUE: Digital bilateral breast shameka (3D mammographic acquisition) in the CC and MLO projections. 2-D mediolateral oblique (MLO) and craniocaudad (CC) views of both breasts were obtained. CAD: Full Field Digital Mammography with Computer Added Detection was performed. COMPARISON: Comparison is made with prior study dated December 11, 2021. FINDINGS: Breast Composition: There are scattered areas of fibroglandular density. There is a 1.7 cm x 1.6 cm well-defined nodule in the anterior upper lateral aspect of the left breast. This has decreased slightly as compared to prior study. This was demonstrated since the prior sonogram. Stable small benign-appearing bilateral axillary lymph nodes. No other significant abnormalities are identified. There has been no significant change since the prior study. BI/SCRN MAMM (CAD)W/SHAMEKA BILAT IMPRESSION: Stable bilateral screening mammogram. Yearly follow-up mammogram recommended. (A) ASSESSMENT CATEGORY: BIRADS Category 2: Benign. A letter regarding these results will be sent to the patient by the facility within 30 days. Approximately 10% of breast cancers are not detected by mammography. A normal mammogram should not delay biopsy of a clinically suspicious abnormality. [id number] Electronically Signed: Jose A Barnes MD at 9:25 EDT ,
== END | disposition home or self-care (01) ==
LOC: OPBI 07:13
PROVIDERS: PCP Family Medicine; Referring Provider Family Medicine; Visit Provider Family Medicine
DX: Z12.31 Encounter for screening mammogram for malignant neoplasm of breast (principal)
CPT/HCPCS: 77063; 77067

== ENCOUNTER 2022-12-17 07:00 | Outpatient (RCR) | payer OTHER, SELFPAY ==
--- NOTE | 2022-11-17 08:13 | HP.PTEVAL_ITS ---
Patient's Visit Information Visit Information Visit Information: SHIRA MASON is a 57 year old F referred to Physical Therapy by Dr. Cornelia Smith DO with a diagnosis of LBP. Date of Evaluation: 11/17/22 Physical Therapist: Yunier Cuellar, PT, ATC Visit Plan Frequency: 2x /Week Duration: 3 Weeks Plan: REIL, core strengthening, and HEP Subjective Subjective: Pt reports she has had intermittent LBP for approximately 10 years. Pt reports her pain occurs 1-2 times per year, and notes it always happens while she is in the shower with forward flexion of her lumbar trunk. Pt reports she has not had any diagnostic tests performed at this time. Pt notes her LBP will originate in her low back region, and radiate to her hips. Pt denies any LE ting ling or numbness. Pt reports sleep difficulty at this time if she wakes up in the middle of the night with her pain, but can usually fall asleep ok if she finds a comfortable position. Pt reports heat, Naprosyn, and sitting all tend to ease her pain. 0/10 pain while sitting in the clinic at rest, 8/10 pain when her flare up occurs. Pain Low back: Pain Intensity (Out of 10): 0 Pain Intensity Range: 8 Objective Objective: Neuro: B LE sensation is WNL to light touch with exception to R lateral knee region. L patellar reflex 2/3, R patellar reflex 1/3 MMT: B LE's are grossly 5/5 throughout ROM: All L/S ROM is WNL at this time with exception to extension which is minimally limited. Repeated movements: RFIS 10x3 NE. HELEN 10x3 NE. Prone prop on elbows NE. REIL 10x2 pt felt better afterwards Balance/Special Test Scores Oswestry Low Back Score: 8 Goals Goal 1:: Decrease LBP x 50% to aid with sleep Goal Time Frame: 2-4 Weeks Goal 2:: Pt will be I with a core strengthening program to prevent future episodes of LBP Goal Time Frame: 2-4 Weeks Goal 3:: Pt will demonstrate both verbally and physically proper posture to aid with preventing future episodes of LBP Goal Time Frame: 2-4 Weeks Goal 4:: Pt will display full lumbar spine extension ROM to aid with more easily obtaining proper posture and lifting techniques. Goal Time Frame: 2-4 Weeks Rehabilitation Potential Physical Therapy Diagnosis: Pt has LBP, limited L/S extension ROM, and difficulty with exercise secondary to L/S disc derangement Rehabilitation Potential: Good Anticipated Interventions Patient/Client Instruction: Educate patient on: Condition and Plan of Care For the Purpose of:: To improve self management Therapeutic Exercise to Include: Strength training, Active ROM, Dynamic Lumbar Stabilization and [place] Exercises For the Purpose of:: To decrease pain, To increase ROM and To improve muscle performance and motor function Text: Thank you for the opportunity to evaluate your patient. For Medicare and Medicare HMO plans, please review the plan of care and approve it. It will need to be FAXED BACK to us at [phone] for Medicare purposes. For Medicare only, by signing this I certify the plan of care. Please let me know if there are questions or concerns regarding this plan of care. Physician Signature: Date:
--- NOTE | 2023-03-01 08:33 | HP.PTDCSUM ---
Discharge Summary D/C summary: It has been my pleasure to treat SHIRA MASON referred by Dr. Cornelia Smith DO, with the diagnosis of LBP for a total of 8 visit(s). Discharge Date: Please see the following information for a summary of their discharge status. Subjective Subjective: I dont really have pain, just some tightness Pain Low back: Pain Intensity (Out of 10): 0 Overall Improvement % Improvement: 90 Objective Objective/Function: LBP ranges from 0-2/10 Pt is both verbally and physically aware and demonstrates appropriate posture at this time Pt is I with a gym and HEP Pt has full pain-free L/S ROM Pt has achieved all Rx goals Goals Goal 1:: Decrease LBP x 50% to aid with sleep Goal Progress: Goal Met Goal 2:: Pt will be I with a core strengthening program to prevent future episodes of LBP Goal Progress: Goal Met Goal 3:: Pt will demonstrate both verbally and physically proper posture to aid with preventing future episodes of LBP Goal Progress: Goal Met Goal 4:: Pt will display full lumbar spine extension ROM to aid with more easily obtaining proper posture and lifting techniques. Goal Progress: Goal Met Plan Plan: Discharge D/C Information d/c sentence: If there are questions or concerns regarding this patient's physical therapy, please feel free to call me at [phone]. Thank you for the referral of this patient. Sincerely, Yunier Cuellar, PT, ATC Balance/Gait/Functional tests Balance/Special Test Scores Oswestry Low Back Score: 0 Improvement % Improvement: 90
== END 2022-12-17 19:00 | disposition home or self-care (01) ==
LOC: PT 07:00
PROVIDERS: PCP Family Medicine; Referring Provider Family Medicine; Visit Provider Family Medicine
DX: M54.50 Low back pain, unspecified (principal)
CPT/HCPCS: 97110; 97161; 97164; 97530

== ENCOUNTER → 2023-05-10 | Outpatient (CLI) | payer OTHER, SELFPAY ==
--- OUTSIDE RECORDS SUMMARY | 2023-05-10 07:55 | XMS RPT_ITS | CCD ---
Author Name Unknown Address [address] [place] [address] Organization [facility] Care Team Providers Care Virology Teacher Name Role Phone Marry Tomlinsonmichelle Aiken Unavailable Tomlinson Victoria N Unavailable Marry Tomlinsonmichelle Aiken Unavailable Allergies Allergy Classification Reported Allergen(s) Allergy Type Date of Onset Reaction(s) Facility (3 sources) codeine drug allergy 08-09-2011 nausea [facility] Work Phone: (3 sources) meperidine drug allergy [facility] Work Phone: Medications Completed/Discontinued Medications Medication Drug Class(es) Dates Sig (Normalized) Sig (Original) CHOLECALCIFEROL CAPS (3 sources) Vitamin D Start: 08-09-2011 VITAMIN D3 CAPS once a week CHOLECALCIFEROL CAPS [id number] Kathrine Quigley Problems Active Problems Problem Classification Problem Date Documented Da te Episodic/Chronic Anxiety disorders (2 sources) Anxiety disorder; Translations: [Reaction to severe stress, unspecified] Onset: 09-15-2016 09-15-2016 Chronic Past or Other Problems Problem Classification Problem Date Documented Da te Episodic/Chronic Fracture of lower limb (3 sources) Fracture of fibula; Translations: [Unspecified fracture of shaft of right fibula] 08-10-2011 Episodic Other connective tissue disease (3 sources) Tendon sheath disorder; Translations: [Other disorders of synovium, tendon, and bursa] 11-22-2012 Episodic Other non-traumatic joint disorders (3 sources) Ankle pain; Translations: [Pain in left ankle and joints of left foot] 11-22-2012 Episodic Pathological fracture (3 sources) Pathological fracture - lower leg; Translations: [Pathological fracture, unspecified tibia and fibula, initial encounter for fracture] 12-01-2012 Episodic Results Test Name Value Interpretation Reference Range Facil ity Vital Signs Date Time Vital Sign Value Performing Clinician Hany greenfield 03-08-2013 15:13-0500 BP Diastolic 75 mm[Hg] [facility] Work Phone: 03-08-2013 15:13-0500 BP Systolic 114 mm[Hg] [facility] Work Phone: 03-08-2013 15:13-0500 Pulse (Heart Rate) 70 /min [facility] Work Phone: 03-08-2013 15:13-0500 Weight 73.48 kg [facility] Work Phone: 08-09-2011 14:47-0400 Height 167.64 cm [facility] Work Phone: Plan of Treatment Date Care Activity Detail Author Start: 09-15-2016 End: 09-15-2016 Appointment Appointment [facility] Work Phone: [facility] Work Phone: Additional Source Comments FOR RECORDS PERTAINING TO PATIENTS WHO ARE OR HAVE BEEN ENROLLED IN A CHEMICAL DEPENDENCY/SUBSTANCEABUSE PROGRAM, SOME INFORMATION MAY BE OMITTED. This clinical summary was aggregated from multiple sources. Caution should be exercised in using it in the provision of clinical care. This summary normalizes information from multiple sources, and as a consequence, information in this document may materially change the coding, format and clinical context of patient data. In addition, data may be omitted in some cases. CLINICAL DECISIONS SHOULD BE BASED ON THE PRIMARY CLINICAL RECORDS. [email or web address] [facility]. provides no warranty or guarantee of the accuracy or completeness of information in this document.
[2023-05-10 08:50] LABS: Hemoglobin A1c 5.7 % (3.8-5.6)
[2023-05-10 09:08] LABS: Anion Gap 5 (5-15); BUN 25 mg/dL (7-18); BUN/Creat Ratio 31.9 RATIO (10-20); Calcium,Total 9.7 mg/dL (8.5-10.1); Chloride 109 mmol/L (98-107); Creatinine, Serum 0.78 mg/dL (0.55-1.02); EST Glomerular Filtration Rate 81 mL/min (>60); Est Glom Filt Rate - Afr Amer 97 mL/min (>60); Glucose 99 mg/dL (74-106); Sodium Level 141 mmol/L (136-145)
== END | disposition home or self-care (01) ==
LOC: LAB 07:53
PROVIDERS: PCP Family Medicine; Referring Provider Obstetrics & Gynecology; Visit Provider Obstetrics & Gynecology
DX: E66.8 Other obesity (principal); Z68.29 Body mass index [BMI] 29.0-29.9, adult
CPT/HCPCS: 36415; 80048; 83036

== ENCOUNTER → 2023-05-16 | Outpatient (CLI) | payer OTHER, SELFPAY ==
[2023-05-19 18:07] LABS: HPV APTIMA, High Risk Negative (Negative)
== END | disposition home or self-care (01) ==
PROVIDERS: PCP Family Medicine; Visit Provider Obstetrics & Gynecology
DX: Z12.4 Encounter for screening for malignant neoplasm of cervix (principal)
CPT/HCPCS: 87624; 88175; G0145

== ENCOUNTER → 2023-06-14 | Outpatient (CLI) | payer OTHER, SELFPAY ==
--- NOTE | 2023-06-14 08:39 | RAD_ITS ---
INDICATION: pain EXAMINATION/TECHNIQUE: X-RAY - XR Hip Unilateral with Pelvis when performed; 2-3 Views COMPARISON: No relevant prior comparison study available FINDINGS: PELVIC BONES: No displaced fracture, destructive or sclerotic lesions. Note that overlapping bowel shadows may however obscure fine detail. Sacroiliac joints are unremarkable. No widening of the pubic symphysis. HIPS: The articular structures are unremarkable. No displaced fracture seen in this frontal view. SOFT TISSUES: No soft tissue swelling or gas. RAD/HIP, UNI W/ Pelvis 2-3 Views IMPRESSION: No evidence of displaced pelvic or hip fracture. Electronically Signed: Regan Duval MD at 15:40 EDT ,
--- NOTE | 2023-06-14 08:39 | RAD_ITS ---
INDICATION: pain -- ap/lat/flex/ext EXAMINATION/TECHNIQUE: X-RAY - XR Spine Lumbar Min 4 Views COMPARISON: No relevant prior comparison study available FINDINGS: VERTEBRAE: Preserved vertebral body height. No fracture. No evidence of spondylolisthesis and no significant change on the flexion and extension views. Preservation of the normal lumbar lordosis. No substantial scoliosis. DISCS: Narrowing of L3-L4 disc space. INCLUDED ABDOMEN: Included bowel gas pattern is non-obstructive. RAD/L/S Spine Min 4 Views IMPRESSION: No evidence of spondylolisthesis. Electronically Signed: Regan Duval MD at 15:35 EDT ,
== END | disposition home or self-care (01) ==
LOC: RAD 08:38
PROVIDERS: PCP Family Medicine; Referring Provider Orthopaedic Surgery Orthopaedic Surgery of the Spine; Visit Provider Orthopaedic Surgery Orthopaedic Surgery of the Spine
DX: M25.559 Pain in unspecified hip (principal); M54.50 Low back pain, unspecified
CPT/HCPCS: 72110; 73502

== ENCOUNTER → 2023-06-25 | Outpatient (CLI) | payer OTHER, SELFPAY ==
--- NOTE | 2023-06-25 07:21 | MRI_ITS ---
STUDY: MRI LUMBAR SPINE WITHOUT CONTRAST REASON FOR EXAM: Female, 57 years old. pain TECHNIQUE: Standardized fat and water weighted pulse sequences were obtained in the sagittal and axial planes. COMPARISON: Lumbar spine series June 14, 2023 FINDINGS: T12-L1: Normal endplates. Normal disc height, hydration and morphology. Normal bilateral facet joints. Normal central canal and bilateral lateral recesses. Normal bilateral intervertebral neural foramina. Normal lumbar lordosis. There is no substantial scoliosis. Normal conus medullaris that terminates at T12-L1 L1-2: Normal endplates. Normal disc height, hydration and morphology. Normal bilateral facet joints. Normal central canal and bilateral lateral recesses. Normal bilateral intervertebral neural foramina. L2-3: Normal endplates. Normal disc height, desiccation and minor annular bulge.. Normal bilateral facet joints. Normal central canal and bilateral lateral recesses. Normal bilateral intervertebral neural foramina. L3-4: Normal endplates. Normal disc height, desiccation and minimal annular bulge.. Minor facet arthropathy and thickening of ligamenta flava. Normal central canal and bilateral lateral recesses. Mild to moderate bilateral neural foraminal encroachment. L4-5: Normal endplates. Normal disc height, desiccation minor annular bulge with small left foraminal disc protrusion. Facet arthropathy and thickening of ligamenta flava Normal central canal and bilateral lateral recesses. Mild right neuroforaminal stenosis and moderate left neural foraminal stenosis and encroachment upon the exiting nerve root which appears inflamed. L5-S1: Normal endplates. Normal disc height, hydration and morphology. Mild facet arthropathy and thickening of ligamenta flava.. Normal central canal and bilateral lateral recesses. Normal bilateral intervertebral neural foramina. Normal visualized sacral ala. Normal visualized paraspinous soft tissue structures. No significant change since prior exam given inherent differences in imaging modalities MRI/Spine Lumbar (Routine) IMPRESSION: No evidence for acute fracture or other significant bone pathology. Spinal stenosis at L3-4 and L4-5 secondary to disc disease and facet arthropathy most severe on the left at L4-5. Findings as above Electronically Signed: Gamaliel Bianchi MD at 16:15 EDT ,
== END | disposition home or self-care (01) ==
LOC: MRI 07:18
PROVIDERS: PCP Family Medicine; Referring Provider Orthopaedic Surgery Orthopaedic Surgery of the Spine; Visit Provider Orthopaedic Surgery Orthopaedic Surgery of the Spine
DX: M54.16 Radiculopathy, lumbar region (principal)
CPT/HCPCS: 72148

== ENCOUNTER 2023-09-16 07:00 | Outpatient (RCR) | payer OTHER, SELFPAY ==
--- NOTE | 2023-06-15 12:34 | HP.PTEVAL ---
Patient's Visit Information Visit Information Visit Information: SHIRA MASON is a 57 year old F referred to Physical Therapy by Dr. Robin Carlos MD with a diagnosis of RADICULOAPTHY ,LUMBAR REGION. Date of Evaluation: 06/15/23 Physical Therapist: Luis Manuel Ahumada, PT, Cert MDT, OCS Visit Plan Frequency: 2x /Week Duration: 4 Weeks Plan: PT INTERVENTIONS LATESHA EX'S , MANUAL THERAPY ,ACTIVITY MODIFICATION ,PROGRESS TO POSTURAL EX'S ,DLS AND MODALITIES Subjective Subjective: This 57 y/o female presents to physical therapy lumbar radiculopathy left side. Patient most recently 3 days ago developed left lateral hip bending over.In past pain was caused from flexion ,bending . Patient has had h/o lumbar pain many years intermittent symptoms . PT has helped in past. Patient seen Dr Carlos plan for MRI and medrol pack . Patient also had x-rays. Meloxicam as needed. Possible pain management. Patient located located left lateral hip . Aggravating factors walking ,standing ,bending lifting. Alleviating factors sitting and rest. Denies paresthesia/tingling -. Coughing /sneezing- Bowel/bladder-. Patient pain affects sleeping. Patient condition affects QOL and function. Patient goals to decrease pain in lumbar. 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 Pain Left Hip: Pain Intensity (Out of 10): 7 Pain Intensity Range: 10 Comment: walking Objective Objective: POSTURE: guarded position mild forward posture , slight shift pelvis NEURO : denies paresthesia/tingling ,reflexe L3-4 ,L4-5 ,L5-S1 1/3 FLEXABILITY: hamstrings WFL GAIT: reciprocal pattern with antalgic gait left side with shift LUMBAR ROM: flexion min loss ,extension WNL ,side glides mod glides left ,side glides right WFL MMT: quads/hams 4/5 ,hip flexion right 4/5 ,left 4-/5 ,ankle 5/5 Special Tests L/S Slump test left side: Positive L/S Slump test right side: Negative L/S Left Straight Leg Raise: Negative L/S Right Straight Leg Raise: Negative Lumbar Standing: Flexion - Mechanical Response: No effect Lumbar Standing: Flexion - Symptoms During Testing: Increases Lumbar Standing: Flexion - Symptoms After Testing: Worse Comments:: left back hip Lumbar Standing: Extension - Mechanical Response: No effect Lumbar Standing: Extension - Symptoms During Testing: Decreases Lumbar Standing: Extension - Symptoms After Testing: No better Lumbar Standing: Right Side Glides - Mechanical Response: No effect Lumbar Standing: Right Side [place] - Symptoms During Testing: No effect Lumbar Standing: Right Side [place] - Symptoms After Testing: No effect Lumbar Standing: Left Side [place] - Mechanical Response: No effect Lumbar Standing: Left Side [place] - Symptoms During Testing: Increases Lumbar Standing: Left Side [place] - Symptoms After Testing: Worse Lumbar Lying: Flexion - Mechanical Response: No effect Lumbar Lying: Flexion - Symptoms During Testing: No effect Lumbar Lying: Flexion - Symptoms After Testing: No effect Lumbar Lying: Extension - Mechanical Response: No effect Lumbar Lying: Extension - Symptoms During Testing: Decreases Lumbar Lying: Extension - Symptoms After Testing: Worse Comments:: increase slides with extension and OP Balance/Special Test Scores Oswestry Low Back Score: 32 Goals Goal 1:: Patient to be I with HEP for back Goal Time Frame: 4-6 Weeks Goal 2:: Patient to demonstrate 75% improvement with decrease pain and improved function Goal Time Frame: 4-6 Weeks Goal 3:: Patient to improve lumbar ROM for function of recovery for ADLS and shave legs Goal Time Frame: 4-6 Weeks Goal 4:: Patient to improve back oswestry score by 5 points to improve QOL. Goal 5:: Patient to normalize gait without limping Goal Time Frame: 4-6 Weeks Rehabilitation Potential Physical Therapy Diagnosis: This patient has lumbar derangement with symptoms in lateral hip with possible disc issue with > lateral component with pain increases with motion testing and positioning affecting walking/standing and housework and ADLS thus benefit from skilled pt Rehabilitation Potential: Good Anticipated Interventions Patient/Client Instruction: Educate patient on: Condition and Plan of Care For the Purpose of:: To decrease pain, To increase ROM, To improve muscle performance and motor function, To improve ability to perform ADL's, To increase tolerance to activity/condition/position, To improve performance and independence with ADL's, To improve ability of physical actions for home/community/work/leisure, To improve health of tissue, To decrease soft tissue restriction, To increase flexibility/ROM, To improve endurance, To improve balance and To improve tolerance to ADL's Therapeutic Exercise to Include: Strength training, Body mechanics, Postural training, Flexibilty training, Dynamic Lumbar Stabilization and [place] Exercises For the Purpose of:: To decrease pain, To increase ROM, To improve muscle performance and motor function, To improve ability to perform ADL's, To increase tolerance to activity/condition/position, To improve ability of physical actions for home/community/work/leisure, To improve gait and locomotor functions, To improve health of tissue, To decrease soft tissue restriction, To increase flexibility/ROM and To improve endurance Manual Therapy Techniques to Include: Mobilization For the Purpose of:: To decrease pain, To increase ROM, To improve nutrient delivery to tissue, To increase oxygenation perfusion, To improve health of tissue and To decrease soft tissue restriction TENS: Yes IF ES: Yes Cryotherapy (ice pack, ice massage): Yes Thermo therapy (hot pack): Yes Ultrasound (thermal/non thermal): Yes For the Purpose of:: To decrease pain, To increase ROM, To improve gait and locomotor functions, To improve health of tissue and To increase flexibility/ROM Text: Thank you for the opportunity to evaluate your patient. For Medicare and Medicare HMO plans, please review the plan of care and approve it. It will need to be FAXED BACK to us at [phone] for Medicare purposes. For Medicare only, by signing this I certify the plan of care. Please let me know if there are questions or concerns regarding this plan of care. Physician Signature: Date:
--- NOTE | 2023-09-16 07:33 | HP.PTDCSUM ---
Discharge Summary D/C summary: It has been my pleasure to treat SHIRA MASON referred by Dr. Robin Carlos MD, with the diagnosis of RADICULOAPTHY ,LUMBAR REGION for a total of 17 visit(s). Discharge Date: 09/16/23 Please see the following information for a summary of their discharge status. Subjective Subjective: Doing well Pain Left Hip: Pain Intensity (Out of 10): 0 Overall Improvement % Improvement: 90 Objective Objective/Function: POSTURE: WFL LUMBAR ROM: flexion WNL ,side glides WNL ,SG's WNL MMT: quiads 53.7,hamstrings 47.2,ankle DF 32,2 Goals Goal 1:: Patient to be I with HEP for back Goal Progress: Goal Met Goal 2:: Patient to demonstrate 75% improvement with decrease pain and improved function Goal Progress: Goal Met Goal 3:: Patient to improve lumbar ROM for function of recovery for ADLS and shave legs Goal Progress: Goal Met Goal 4:: Patient to improve back oswestry score by 5 points to improve QOL. Goal Progress: Goal Met Goal 5:: Patient to normalize gait without limping Goal Progress: Goal Met Plan Plan: D/C D/C Information Discharge Comments: HEP AND GYM d/c sentence: If there are questions or concerns regarding this patient's physical therapy, please feel free to call me at [phone]. Thank you for the referral of this patient. Sincerely, Luis Manuel Ahumada, PT, Cert MDT, OCS Balance/Gait/Functional tests Balance/Special Test Scores Oswestry Low Back Score: 4 Improvement % Improvement: 90
== END 2023-09-16 19:00 | disposition home or self-care (01) ==
LOC: PT 07:00
PROVIDERS: PCP Family Medicine; Referring Provider Orthopaedic Surgery Orthopaedic Surgery of the Spine; Visit Provider Orthopaedic Surgery Orthopaedic Surgery of the Spine
DX: M54.16 Radiculopathy, lumbar region (principal)
CPT/HCPCS: 97014; 97035; 97110; 97162; 97530; G0283

== ENCOUNTER → 2023-10-26 | Outpatient (CLI) | payer OTHER, SELFPAY ==
[2023-10-26 09:14] LABS: Cholesterol 240 mg/dL (200); High Density Lipoprotein 57 mg/dL; T4 Free Direct 0.93 ng/dL (0.76-1.46); Thyroid Stim Hormone (TSH) 2.12 uIU/mL (0.358-3.74); Triglycerides 191 mg/dL; Very Low Density Lipoprotein 38 mg/dL (5-40)
[2023-10-28 12:46] LABS: Free T3 2.7 pg/mL (2.18-3.98)
== END | disposition home or self-care (01) ==
LOC: LAB 07:23
PROVIDERS: PCP Family Medicine; Referring Provider Family Medicine; Visit Provider Family Medicine
DX: E03.9 Hypothyroidism, unspecified (principal); E78.5 Hyperlipidemia, unspecified
CPT/HCPCS: 36415; 80061; 84439; 84443; 84481; 86376; 86800

== ENCOUNTER 2023-11-30 09:42 | Outpatient (RCR) | payer OTHER, SELFPAY | END 2023-12-19 23:59 | LOC: NS 09:42 | PROVIDERS: PCP Family Medicine; Referring Provider Family Medicine; Visit Provider Family Medicine | DX: Z71.3 Dietary counseling and surveillance (principal); E66.9 Obesity, unspecified; Z68.30 Body mass index [BMI] 30.0-30.9, adult | CPT/HCPCS: 97802 ==

== ENCOUNTER → 2023-12-16 | Outpatient (CLI) | payer OTHER, SELFPAY ==
--- NOTE | 2023-12-16 07:31 | BI_ITS ---
MAMMOGRAPHY - BILATERAL SCREENING REASON FOR EXAM: Female, 58 years old. Routine annual screening examination. PERTINENT HISTORY: Non-contributory. TECHNIQUE: Digital bilateral breast shameka (3D mammographic acquisition) in the CC and MLO projections. 2-D mediolateral oblique (MLO) and craniocaudad (CC) views of both breasts were obtained. CAD: Full Field Digital Mammography with Computer Added Detection was performed. COMPARISON: Comparison is made with prior study December 14, 2022 and December 11, 2021. FINDINGS: Breast Composition: There are scattered areas of fibroglandular density. The previously seen well-defined nodule in the anterior upper lateral aspect of the left breast has decreased in size. It presently measures 1.1 cm x 1.1 cm. Stable bilateral fat containing axillary lymph nodes. No other significant abnormalities are identified. BI/SCRN MAMM (CAD)W/SHAMEKA BILAT IMPRESSION: Interval decrease in size of the previously seen nodule in the anterior upper lateral aspect of the left breast as described. Yearly follow-up mammogram recommended. (A) ASSESSMENT CATEGORY: BIRADS Category 2: Benign. A letter regarding these results will be sent to the patient by the facility within 30 days. Approximately 10% of breast cancers are not detected by mammography. A normal mammogram should not delay biopsy of a clinically suspicious abnormality. [id number] Electronically Signed: Jose A Barnes MD at 9:35 EDT ,
== END | disposition home or self-care (01) ==
LOC: OPBI 07:30
PROVIDERS: PCP Family Medicine; Referring Provider Obstetrics & Gynecology; Visit Provider Obstetrics & Gynecology
DX: Z12.31 Encounter for screening mammogram for malignant neoplasm of breast (principal)
CPT/HCPCS: 77063; 77067

== ENCOUNTER → 2024-03-08 | Outpatient (CLI) | payer OTHER, SELFPAY ==
--- NOTE | 2024-03-08 08:59 | RAD_ITS ---
EXAM: XR RIGHT HAND COMPLETE, 3 OR MORE VIEWS CLINICAL INDICATION: Right hand pain TECHNIQUE: Frontal, lateral and oblique views of the right hand. COMPARISON: July 14, 2018 FINDINGS: BONES/JOINTS: And new mild widening of the fifth DIP joint with mild broadening and irregular articular margins. No acute fracture. No subluxation. Normal alignment. No sclerotic or destructive changes observed. SOFT TISSUES: There is soft tissue swelling around the second and third DIP joints and marked joint space narrowing and interdigitating margins at both joints, with hypertrophic broadened margins of the opposing periarticular surfaces, new from prior exam. There is also new degenerative change of the IP joint of the thumb with mild surrounding periarticular soft tissue swelling. No radiopaque foreign body. RAD/Hand Min 3 Views IMPRESSION: 1. 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 New from 2019. Associated soft tissue swelling. Especially marked destructive changes of the joints with interdigitating margins at the second and third DIP joints. 2. Not a typical appearance of primary osteoarthritis. Erosive osteoarthritis, rheumatoid, and inflammatory psoriatic and other etiologies of arthritis are suggested etiologies. Electronically Signed: Mi Arora MD at 1:58 EST ,
== END | disposition home or self-care (01) ==
LOC: RAD 08:58
PROVIDERS: PCP Family Medicine; Referring Provider Surgery Plastic and Reconstructive Surgery; Visit Provider Surgery Plastic and Reconstructive Surgery
DX: M19.049 Primary osteoarthritis, unspecified hand (principal)
CPT/HCPCS: 73130

== ENCOUNTER → 2024-06-13 | Outpatient (CLI) | payer OTHER, SELFPAY ==
[2024-06-13 09:11] LABS: Hemoglobin A1c 5.5 % (<=5.6)
[2024-06-13 09:37] LABS: Free T3 2.7 pg/mL (2.18-3.98)
[2024-06-14 15:09] LABS: Thyroglobulin Antibody < 1.0 IU/mL (0.0-0.9); Thyroid Peroxidase AB 10 IU/mL (0-34)
== END | disposition home or self-care (01) ==
LOC: LAB 07:40
PROVIDERS: PCP Family Medicine; Referring Provider Family Medicine; Visit Provider Family Medicine
DX: E03.9 Hypothyroidism, unspecified (principal); R73.01 Impaired fasting glucose
CPT/HCPCS: 36415; 83036; 84439; 84443; 84481; 86376; 86800

== ENCOUNTER → 2024-12-18 | Outpatient (CLI) | payer OTHER, SELFPAY ==
--- NOTE | 2024-12-18 07:15 | BI_ITS ---
EXAM: SCRN MAMM (CAD)W/SHAMEKA BILAT DATE: 12/18/2024 CLINICAL HISTORY: F, Age 59 y/o , SCREENING MAMMOGRAM Routine screening TECHNIQUE: Procedure Code: [id number] Modality: MG Procedure: SCRN MAMM (CAD)W/SHAMEKA BILAT COMPARISON: Prior exam(s) dated 12/16/2023. FINDINGS: TISSUE DENSITY: There are scattered areas of fibroglandular density. Bilateral Breast Mammographic Findings: No significant masses, calcifications or other abnormalities are identified. Stable well-defined 1 cm nodule in the upper-outer quadrant of the left breast. No new suspicious findings, no interval change BI/SCRN MAMM (CAD)W/SHAMEKA BILAT IMPRESSION: Stable screening mammogram, no suspicious findings OVERALL FINAL ASSESSMENT BI-RADS 2: BENIGN RECOMMENDATION: Routine annual follow-up in 1 Year Additional Recommendation none A letter with findings and recommendations will be mailed to the patient. Reading Location: [id number]
== END | disposition home or self-care (01) ==
LOC: OPBI 07:09
PROVIDERS: PCP Family Medicine; Referring Provider Obstetrics & Gynecology; Visit Provider Obstetrics & Gynecology
DX: Z12.31 Encounter for screening mammogram for malignant neoplasm of breast (principal)
CPT/HCPCS: 77063; 77067

== ENCOUNTER → 2025-01-25 | Outpatient (CLI) | payer OTHER, SELFPAY ==
--- NOTE | 2025-01-25 14:45 | CT_ITS ---
PROCEDURE: LIMITED CHEST CT CARDIAC ONLY 01/25/2025 REASON FOR EXAM: FAMILY HX OF ISCHEM HEART DIS ANDOTHER DIS OF THE CIRC SYS TECHNIQUE: Procedure Code: [id number] Modality: CT Procedure: LIMITED CHEST CT CARDIAC ONLY CONTRAST: None One or more dose reduction techniques were used (e.g., Automated exposure control, adjustment of the mA and/or kV according to patient size, use of iterative reconstruction technique). RADIATION DOSE SUMMARY: CTDlvol: 12.19 mGy DLP: 219.42 mGycm COMPARISON: None FINDINGS: Mild calcification of the aortic arch. Minimal calcific plaque in the LAD. The visualized portions of the lungs are unremarkable. CT/Limited Chest CT Cardiac Only IMPRESSION: Minimal calcific plaque in the LAD. Reading Location: [place] [id number]
--- NOTE | 2025-02-01 13:58 | CA.SCORE ---
Calcium Scoring Date of Study:: 01/25/25 Indications Indications: Family history Coronary Calcium Scoring: High-resolution Computed Tomographic imaging of the chest was performed on [01/25/2025], with particular attention paid to the coronary arteries. Images from the examination were analyzed for the presence and extent of coronary artery calcification , using coronary calcium quantification software. The patient tolerated the procedure well and there were no complications. The results of the coronary calcification analysis are provided below. Findings Coronary Artery Left Main (LM): 0 Left Anterior Descending (LAD): 2.72 Left Circumflex (LCX): 0 Right Coronary Artery (RCA): 0 Total Agatston Score: 2.72 Percentile Rankin-75 Calcium Scoring Interpretation: Different methods to categorize the overall amount of coronary plaque. Overall amount CAC SIS Visual of coronary plaque P1 Mild -100 <2 1-2 vessels with mild amount of plaque P2 Moderate 101-300 3-4 1-2 vessels with moderate amount, 3 vessels with mild amount of plaque P3 Severe 301-999 5-7 3 vessels with moderate amount, 1 vessel with severe amount of plaque P4 Extensive >1000 >8 2-3 vessels with severe amount of plaque Calcium Score: Mild: 1-2 vessels w/mild amount of plaque Conclusion: Minimal focal atherosclerotic plaquing noted single-vessel
== END | disposition home or self-care (01) ==
LOC: CT 14:43
PROVIDERS: PCP Family Medicine; Referring Provider Family Medicine; Visit Provider Family Medicine
DX: E78.5 Hyperlipidemia, unspecified (principal); Z82.49 Family history of ischemic heart disease and other diseases of the circulatory system
CPT/HCPCS: 75571; 76380

== ENCOUNTER → 2025-02-26 | Outpatient (CLI) | payer OTHER, SELFPAY ==
--- OUTSIDE RECORDS SUMMARY | 2025-02-26 07:32 | XMS RPT_ITS | CCD ---
Author Organization [facility] Care Team Providers Care Manager Athletics Name Role Phone Victoria Tomlinson N Unavailable Marry Tomlinsonica N Unavailable Tomlinson, Victoria N Unavailable Dr. Cornelia Smith Primary Care Provider [phone] Dr. Cornelia Smith Referring Provider [phone] Skylar Chester Attending Provider Dr. Xochitl Peralta Attending Provider [phone] Dr. Skylar Chester Referring Provider Dr. Cornelia Smith Primary Care Provider [phone] Dr. Cornelia Smith Referring Provider Dr. Skylar Chester Attending Provider Yazmin MINISTER, RENET[place]-Yany Richard Attending Provider Dr. Cornelia Smith Primary Care Provider Dr. Cornelia Smith Referring Provider Dr. Skylar Chester Attending Provider Dr. Cornelia Smith Primary Care Provider [phone] Dr. Cornelia Smith Referring Provider Dr. Skylar Chester Attending Provider Dr. Robin Carlos Attending Provider Skylar Chester Attending Unavailable Skylar Chester Referring Unavailable Cornelia Smith Primary Care Unavailable Malys, Cornelia Primary Care Unavailable Siska, Hugo Attending Unavailable Siska, Hugo Referring Unavailable Malys, Cornelia Primary Care Unavailable Malys, Cornelia Attending Unavailable Malys, Cornelia Referring Unavailable Skruck, Ann Attending Unavailable Malys, Cornelia Primary Care Unavailable Skruck, Ann Attending Unavailable Malys, Cornelia Primary Care Unavailable Malys, Cornelia Primary Care Unavailable Siska, Hugo Attending Unavailable Malys, Cornelia Referring Unavailable Skruck, Ann Attending Unavailable Malys, Cornelia Primary Care Unavailable Malys, Cornelia Primary Care Unavailable Skylar Chester Attending Unavailable Malys, Cornelia Referring Unavailable Skruck, Ann Attending Unavailable Malys, Cornelia Primary Care Unavailable Skruck, Ann Attending Unavailable Malys, Cornelia Primary Care Unavailable Skruck, Ann Attending Unavailable Malys, Cornelia Primary Care Unavailable Skruck, Ann Attending Unavailable Malys, Cornelia Primary Care Unavailable Skruck, Ann Attending Unavailable Malys, Cornelia Primary Care Unavailable Assessment, Health Risk Referring Unavaila ble Malys, Cornelia Primary Care Unavailable Assessment, Health Risk Attending Unavaila ble Malys, Cornelia Attending Unavailable Malys, Cornelia Referring Unavailable Malys, Cornelia Primary Care Unavailable Malys, Cornelia Primary Care Unavailable Malys, Cornelia Attending Unavailable Malys, Cornelia Referring Unavailable Allergies Allergy Classification Reported Allergen(s) Allergy Type Date of Onset Reaction(s) Facility (16 sources) codeine; Translations: [codeine] drug allergy 2 nausea, Nausea/Vom/Diar blanca [facility] Work Phone: (3 sources) meperidine drug allergy nausea [facility] Work Phone: Medications Current Medications Medication Drug Class(es) Dates Sig (Normalized) Sig (Original) estradiol 0.1 mg/ml vaginal cream (3 sources) Estrogen Start: 05-16-2023 Estradiol (Estrace) 0.01 % (0.1 mg/gram) cream Active 0 VAGINAL .COMPLEX 42.5 May 16, 2023 1:00am use fingertip amount or 1-2g every night vaginally x 2 weeks, then 1-3x weekly for maintenance gabapentin 100 mg oral capsule (1 source) Anti-epileptic Agent Start: 06-28-2023 take 100 mg by mouth at bedtime Gabapentin Active 100 MG PO AT BEDTIME June 28, 2023 12:00am phentermine hydrochloride 37.5 mg oral tablet (20 sources) Sympathomimetic Amine Anorectic Start: 06-07-2022 End: 05-16-2023 Phentermine (Adipex-P) 37.5 mg tablet Active 18.75 MG PO daily July 23, 2022 10:42am BMI 29 Start: 03-26-2022 End: 06-07-2022 Phentermine (Adipex-P) 37.5 mg capsule Discontinued 37.5 MG PO DAILY March 26, 2022 6:01pm June 07, 2022 9:39am must administer 30 minutes before or 1-2 hours after breakfast bmi 29.9 Start: 02-17-2022 End: 03-26-2022 take 1 capsule by mouth once daily 30 minutes after breakfast Phentermine (Adipex-P) 37.5 mg capsule Discontinued 37.5 MG PO DAILY February 17, 2022 1:00am March 26, 2022 6:01pm must administer 30 minutes before or 1-2 hours after breakfast simvastatin 5 mg oral tablet (10 sources) HMG-CoA Reductase Inhibitor Start: 10-15-2021 take 5 mg by mouth once daily Simvastatin Active 5 MG PO DAILY October 15, 2021 12:00am SUMAtriptan 100 mg oral tablet (20 sources) Serotonin-1b and Serotonin-1d Receptor Agonist Start: 01-02-2019 take 0.2 tablet by mouth every month Sumatriptan Succinate (Imitrex) 100 mg tablet Active 100 MG PO .2 x q month January 02, 2019 12:00am Start: 11-24-2017 End: 01-02-2019 take 1 tablet by mouth once Sumatriptan Succinate (Imi trex) 50 mg tablet Discontinued 50 MG PO ONCE November 24, 2017 12:00am January 02, 2019 1:44pm Completed/Discontinued Medications Medication Drug Class(es) Dates Sig (Normalized) Sig (Original) 24 hr buPROPion hydrochloride 150 mg extended release oral tablet (10 sources) Aminoketone Start: 10-15-2021 End: 01-04-2022 take 1 tablet by mouth once daily in the morning Bupropion Hcl (Wellbutrin Xl) 150 mg tablet extended release 24 hr Discontinued 150 MG PO EVERY MORNING October 15, 2021 12:00am January 04, 2022 1:07pm CHOLECALCIFEROL CAPS (3 sources) Vitamin D Start: 08-09-2011 VITAMIN D3 CAPS once a week CHOLECALCIFEROL CAPS [id number] Kathrine Quigley Start: 08-09-2011 VITAMIN D3 CAP S once a week CHOLECALCIFEROL CAPS [id number] Kathrine Quigley CA PHOSPHATE-CHOLECALCIFEROL (2 sources) Vitamin D Start: 09-15-2016 CALTRATE GUMMY BITES 250-400 MG-UNIT CHEW CA PHOSPHATE-CHOLECALCIFEROL [id number] Kathrine Quigley Start: 09-15-2016 CALTRATE GUMMY BITES 250-400 MG-UNIT CHEW CA PHOSPHATE-CHOLECALCIFEROL [id number] Kathrine Quigley methylPREDNISolone 4 mg oral tablet (2 sources) Corticosteroid Start: 06-14-2023 End: 06-28-2023 take 1 tablet by mouth once Methylprednisolone (Medrol (Adán)) 4 mg tablets,dose pack Discontinued 0 PO per package directions June 14, 2023 12:00am June 28, 2023 8:57am PO PER PKG DIR omeprazole 20 mg delayed release oral capsule (3 sources) Proton Pump Inhibitor Start: 08-09-2011 take 1 tablet by mouth once daily OMEPRAZOLE 20 MG CPDR One tablet by mouth daily OMEPRAZOLE [id number] Kathrine Quigley progesterone 200 mg oral capsule (12 sources) Progesterone Start: 11-24-2017 End: 08-10-2018 take 200 mg by mouth at bedtime Progesterone Micronized Discontinued 200 MG PO AT BEDTIME November 24, 2017 12:00am August 10, 2018 12:36pm Selenium (12 sources) Start: 12-06-2017 End: 01-02-2019 take 100 ug by mouth once daily Selenium Discontinued 100 MCG PO DAILY December 06, 2017 11:24am January 02, 2019 1:44pm Start: 12-06-2017 End: 01-02-2019 take 100 ug by mouth once daily Selenium Discontinued 100 MCG PO DAILY December 05, 2017 11:00pm January 02, 2019 12:44pm Start: 12-06-2017 End: 01-02-2019 take 100 ug by mouth once daily Selenium Discontinued 100 MCG PO DAILY December 06, 2017 12:00am January 02, 2019 1:44pm Problems Active Problems Problem Classification Problem Date Documented Date Episodic/Chronic Anxiety disorders (12 sources) Anxiety disorder; Translations: [Anxiety] Onset: 09-15-2016 09-15-2016 Chronic Diabetes mellitus without complication (3 sources) Prediabetes; Translations: [Prediabetes] 05-10-2023 Episodic Disorders of lipid metabolism (13 sources) Hypertriglyceridemia; Translations: [Pure hyperglyceridemia] Onset: 09-11-2024 08-03-2022 Chronic Essential hypertension (2 sources) Hypertensive disorder; Translations: [Essential (primary) hypertension] 06-14-2023 Chronic Menopausal disorders (20 sources) Menopausal syndrome; Translations: [Menopausal and female climacteric states] Onset: 09-11-2024 Chronic Nonspecific chest pain (14 sources) Chest pain; Translations: [Chest pain, unspecified] Episodic Osteoarthritis (14 sources) Localized, primary osteoarthritis of the hand; Translations: [Primary osteoarthritis, unspecified hand] Onset: 04-11-2024 08-01-2020 Chronic Other connective tissue disease (12 sources) Synovial cyst; Translations: [Other bursal cyst, unspecified site] 2020 Episodic Other inflammatory condition of skin (7 sources) Psoriatic arthritis; Translations: [Arthropathic psoriasis, unspecified] 07-23-2022 Chronic Other inflammatory condition of skin (2 sources) Arthropathic psoriasis, unspecified; Translations: [Psoriatic arthropathy] Chronic Other nutritional; endocrine; and metabolic disorders (10 sources) Obesity; Translations: [Other obesity] 07-23-2022 Chronic Other nutritional; endocrine; and metabolic disorders (10 sources) Other obesity; Translations: [Obesity, unspecified] Chronic Other nutritional; endocrine; and metabolic disorders (11 sources) Body mass index 30+ - obesity; Translations: [Body mass index (BMI) 31.0-31.9, adult] 07-23-2022 Chronic Other nutritional; endocrine; and metabolic disorders (4 sources) Body mass index (BMI) 31.0-31.9, adult; Translations: [Body Mass Index 31.0-31.9, adult] Chronic Other nutritional; endocrine; and metabolic disorders (5 sources) Overweight in adulthood with body mass index of 25 or more but less than 30; Translations: [Body mass index (BMI) 29.0-29.9, adult] 07-23-2022 Episodic Other screening for suspected conditions (not mental disorders or infectious disease) (1 source) Encounter for screening mammogram for malignant neoplasm of breast; Translations: [Encounter for screening mammogram for malignant neoplasm of breast] Onset: 12-29-2024 Episodic Other upper respiratory infections (12 sources) Acute pharyngitis; Translations: [Acute pharyngitis, unspecified] 07-18-2020 Episodic Residual codes; unclassified (1 source) Family history of ischemic heart disease and other diseases of the circulatory system; Translations: [Family history of ischemic heart disease and other diseases of the circulatory system] Onset: 01-25-2025 Episodic Spondylosis; intervertebral disc disorders; other back problems (2 sources) Prolapsed lumbar intervertebral disc; Translations: [Other intervertebral disc displacement, lumbar region] 06-28-2023 Chronic Spondylosis; intervertebral disc disorders; other back problems (4 sources) Lumbar radiculopathy; Translations: [Radiculopathy, lumbar region] 06-14-2023 Episodic Thyroid disorders (1 source) Hypothyroidism, unspecified; Translations: [Hypothyroidism, unspecified] Onset: 06-18-2024 Chronic Past or Other Problems Problem Classification Problem Date Documented Da te Episodic/Chronic Fracture of lower limb (3 sources) Fracture of fibula; Translations: [Unspecified fracture of shaft of right fibula] 08-10-2011 Episodic Other aftercare (1 source) Encounter for therapeutic drug level monitoring; Translations: [Encounter for therapeutic drug level monitoring] Onset: 06-14-2024 Episodic Other connective tissue disease (3 sources) [...] Results Test Name Value Interpretation Reference Range Facility Limited Chest CT Cardiac Onl yon 01-25-[address] Cardiac Only [facility] Imaging Services [address] [place], [place] [id number] Limited Chest CT Cardiac Only MR#: [id number] Acct: [id number] Name: SHIRA GIBSON Rep #: [id number] : 1965 F 59 From: Jose A paul MD PCP: Dr. Cornelia Smith DO Status: REG CLI Study: Limited Chest CT Cardiac Only Date of Exam: Exam# [id number] Ordering Dr: Cornelia Smith DO PROCEDURE: LIMITED CHEST CT CARDIAC ONLY 01/25/2025 REASON FOR EXAM: FAMILY HX OF ISCHEM HEART DIS ANDOTHER DIS OF THE CIRC SYS TECHNIQUE: Procedure Code: CTCCTACHLIM Modality: CT Procedure: LIMITED CHEST CT CARDIAC ONLY CONTRAST: None One or more dose reduction techniques were used (e.g., Automated exposure control, adjustment of the mA and/or kV according to patient size, use of iterative reconstruction technique). RADIATION DOSE SUMMARY: CTDlvol: 12.19 mGy DLP: 219.42 mGycm COMPARISON: None FINDINGS: Mild calcification of the aortic arch. Minimal calcific plaque in the LAD. The visualized portions of the lungs are unremarkable. CT/Limited Chest CT Cardiac Only IMPRESSION: Minimal calcific plaque in the LAD. Reading Location: [place] [address] CC: Dr. Cornelia Smith DO Senior Lead Software Engineer: Signed Normal [facility] MR/BMS.BPon 01-01-2025 MR/BMS.BP [facility] [address], [address] [place] [id number] OFFICE VISIT Date of Service: 01/01/25 MR#: [id number] Acct: [id number] Name: SHIRA GIBSON Rep #: [id number] : 1965 Provider: [facility] Ann yanez Age/Sex: 59/F Location: [facility].BP Status: Signed Intake Vital Signs 06/10/24 10:54 11/01/24 08:37 01/01/25 12:27 Height 5 ft 6 in 5 ft 6 in 5 ft 6 in BP Intake Visit Reasons: Follow up Allergies codeine Allergy (Unknown, Verified 09/11/24 14:53) Nausea/Vom/Diarrhea [facility] Medical History Psoriatic arthritis Anxiety Osteoarthritis Hormone deficiency High triglycerides Hyperlipidemia Migraine headache Bone fracture Surgical History S/P tubal ligation S/P knee surgery Family History Father Arthritis Cancer Myocardial infarction Heart disease Mother Arthritis Osteoporosis Thyroid disorder Sister Thyroid disorder Social History (Updated 09/11/24 @ 14:57 by Hilary Christopher) household members: spouse number of children: 2 current occupational status: employed 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 She reported working on planning for her mother with mother and siblings. Shira reported that the task was challenging due to mother's behaviors but noted siblings were able to utilize each other for support and assistance. She discussed aging and impact it appears to have on . Shira reported positive relationship and interactions with but some stressors in certain areas of interaction. She identified work stressors related to upcoming review of program. Encouraged verbalization of emotions while providing support. Normalized emotions. Worked on communication strategies for addressing stressors with providing psychoeducation and modeling. Worked on doing what was effective. No SI. Future-oriented. Exam Mental Status Exam - Psych Appearance well kempt Attitude cooperative, calm, engaged, pleasant and friendly Activity/Motor Behavior MSE activity/motor behavior finding no adventitious movements and appropriate eye contact Speech regular rate, regular volume and regular prosody Mood sad (Reports some recent sadness.) and OK Affect full range Thought Process linear, logical, coherent and goal directed Thought Content no delusions, no hallucinations and ruminations Suicidal Ideation none Homicidal Ideation none Attention intact Concentration intact Sensorium/Orientati on alert and oriented x3 Memory/Cognition intact Insight good Judgement good Assessment Plan Assessment Plan (1) Anxiety disorder, unspecified: Plan: BH therapy using CBT, DBT, and ACT interventions to address thought patterns contributing to anxious symptoms and to teach coping skills. Psychiatric services to monitor anxious symptoms and medication effectiveness. Plan TREATMENT PLAN Goal 1 - Enhance ability to effectively cope with the full variety of life stressors and worries AEB pt. self-report of progress in this area. Objective 1 - Identify, challenge, and replace biased, fearful self-talk with positive, realistic, and empowering self-talk. Intervention 1 - Explore schemas and self-talk that result in anxiety; assist pt. in challenging biases; replace anxiety triggering messages with reality-based alternatives and positive, realistic self-talk that increase Pt.'s self-confidence in coping with stressors. Objective 2 - Gain coping skills to assist in managing others' challenging behaviors. Intervention 1 - Teach distress tolerance, emotional regulation, interpersonal effectiveness, and mindfulness skills. Visit Details Duration of visit (minutes): 60 Duration of counseling (minutes): 60 Total time (minutes): 60 Type of visit: psychotherapy and [id number] [place] [address] PSYTX W PT 60 MINUTES Patient Type Established Diagnoses Anxiety disorder, unspecified F41.9 Time Spent (min) 60 01/02/25 0642 Date Ann Vazquez [facility] Cosigner Signature: Date (more content not included)... Normal [facility] SCRN MAMM (CAD)W/SHAMEKA alexis 12-18-2024 SCRN MAMM (CAD)W/SHAMEKA GONZALES [facility] Imaging Services [address] [place] [address] SCRN MAMM (CAD)W/SHAMEKA GONZALES MR#: [id number] Acct: [id number] Name: SHIRA GIBSON Rep #: [id number] : 1965 F 59 From: Frank Narayan MD PCP: Dr. Cornelia Smith DO Status: REG CLI Study: SCRN MAMM (CAD)W/SHAMEKA BILAT Date of Exam: 11/21 Exam# [id number] Ordering Dr: Skylar Chester EXAM: SCRN MAMM (CAD)W/SHAMEKA BILAT DATE: 12/18/2024 CLINICAL HISTORY: F, Age 59 y/o , SCREENING MAMMOGRAM Routine screening TECHNIQUE: Procedure Code: [id number] Modality: MG Procedure: SCRN MAMM (CAD)W/SHAMEKA BILAT COMPARISON: Prior exam(s) dated 12/16/2023. FINDINGS: TISSUE DENSITY: There are scattered areas of fibroglandular density. Bilateral Breast Mammographic Findings: No significant masses, calcifications or other abnormalities are identified. Stable well-defined 1 cm nodule in the upper-outer quadrant of the left breast. No new suspicious findings, no interval change BI/SCRN MAMM (CAD)W/SHAMEKA BILAT IMPRESSION: Stable screening mammogram, no suspicious findings OVERALL FINAL ASSESSMENT BI-RADS 2: BENIGN RECOMMENDATION: Routine annual follow-up in 1 Year Additional Recommendation none A letter with findings and recommendations will be mailed to the patient. Reading Location: [facility] CC: Dr. Cornelia Smith DO; Dr. Skylar Chester MD Senior Lead Software Engineer: Signed [facility] MR/BMS.BPon 11-01-2024 MR/BMS.BP [facility] [address] [place] [address], [address] [place] [address] OFFICE VISIT Date of Service: 10/31/24 MR#: [id number] Acct: [id number] Name: SHIRA GIBSON Rep #: [id number] : 1965 Provider: [facility] Annned yanez Age/Sex: 59/F Location: [facility].BP Status: Signed Intake Vital Signs 09/11/24 14:48 11/01/24 08:37 Height 5 ft 6 in 5 ft 6 in Weight: 190 lb 6 oz BMI 30.7 BP 131/87 H BP Intake Visit Reasons: Follow up Allergies codeine Allergy (Unknown, Verified 09/11/24 14:53) Nausea/Vom/Diarrhea [facility] Medical History Psoriatic arthritis Anxiety Osteoarthritis Hormone deficiency High triglycerides Hyperlipidemia Migraine headache Bone fracture Surgical History S/P tubal ligation S/P knee surgery Family History Father Arthritis Cancer Myocardial infarction Heart disease Mother Arthritis Osteoporosis Thyroid disorder Sister Thyroid disorder Social History (Updated 09/11/24 @ 14:57 by Hilary Christopher) household members: spouse number of children: 2 current occupational status: employed 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 She reported that she was doing well. Shira identified effectiveness setting healthy boundaries with her siblings and improved interactions with a sister. She reported interactions with mother remain frustrating due to mother's longstanding patterns of behavior. Shira reported positive interactions with her children. The themes of the session were recent positive relational experiences; exploration of relationship with mother; current and past dynamics with mother; and coping with relational frustrations. Encouraged verbalization of emotions while providing support. Used DBT and CBT strategies to address ongoing difficulties. Worked on problem-solving and coping strategies to manage difficult situations. Reinforced healthy boundaries and communication with siblings. No SI. Future-oriented. Exam Mental Status Exam - Psych Appearance well kempt Attitude cooperative, calm, engaged, pleasant and friendly Activity/Motor Behavior MSE activity/motor behavior finding no adventitious movements and appropriate eye contact Speech regular rate, regular volume and regular prosody Mood OK Affect full range Thought Process linear, logical, coherent and goal directed Thought Content no delusions, no hallucinations and ruminations (Related to mother's behaviors.) Suicidal Ideation none Homicidal Ideation none Attention intact Concentration intact Sensorium/Orientati on alert and oriented x3 Memory/Cognition intact Insight good Judgement good Assessment Plan Assessment Plan (1) Anxiety disorder, unspecified: Plan: BH therapy using CBT, DBT, and ACT interventions to address thought patterns contributing to anxious symptoms and to teach coping skills. Psychiatric services to monitor anxious symptoms and medication effectiveness. Plan TREATMENT PLAN Goal 1 - Enhance ability to effectively cope with the full variety of life stressors and worries AEB pt. self-report of progress in this area. Objective 1 - Identify, challenge, and replace biased, fearful self-talk with positive, realistic, and empowering self-talk. Intervention 1 - Explore schemas and self-talk that result in anxiety; assist pt. in challenging biases; replace anxiety triggering messages with reality-based alternatives and positive, realistic self-talk that increase Pt.'s self-confidence in coping with stressors. Objective 2 - Gain coping skills to assist in managing others' challenging behaviors. Intervention 1 - Teach distress tolerance, emotional regulation, interpersonal effectiveness, and mindfulness skills. Visit Details Duration of visit (minutes): 60 Duration of counseling (minutes): 60 Total time (minutes): 60 Type of visit: psychotherapy and [id number] [place] [address] PSYTX W PT 60 MINUTES Patient Type Established Diagnoses Anxiety disorder, unspecified F41.9 Time Spent (min) 60 11/01/24 0854 Date Ann Vazquez [facility] [place] (more content not included)... Normal [facility] Credit Rating Checker Office Visit Reporton 09-11-2024 Credit Rating Checker Office Visit Report [facility], [address] [place] [address] OFFICE VISIT Date of Service: 09/11/24 MR#: [id number] Acct: [id number] Name: SHIRA GIBSON Rep #: [id number] : 1965 Provider: Dr. 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 Technician Required: No Is patient in pain?: No Allergies codeine Allergy (Unknown, Verified 09/11/24 14:53) Nausea/Vom/Diarrhea Medications ???Medication ???Instructions ???Recorded ???Confirmed ???Type sumatriptan succinate 100 mg 100 mg PO .2 x q month 01/02/19 History tablet (Imitrex) simvastatin 5 mg tablet 5 mg PO DAILY 10/15/21 09/11/24 Hi story meloxicam 7.5 mg tablet 7.5 mg PO QDAY PRN 09/11/24 History Is last menstrual period known: Yes Last Menstrual Period: 09/10/22 Post menopausal: Yes Patient : No : No [facility] Medical History Psoriatic arthritis Anxiety Osteoarthritis Hormone deficiency High triglycerides Hyperlipidemia Migraine headache Bone fracture Surgical History S/P tubal ligation S/P knee surgery Family History Father Arthritis Cancer Myocardial infarction Heart disease Mother Arthritis Osteoporosis Thyroid disorder Sister Thyroid disorder Social History (Updated 09/11/24 @ 14:57 by Hilary Christopher) household members: spouse number of children: 2 current occupational status: employed 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 Date Name GA/Weeks Outcome Route Bth Weight Infant Gen Labor Lgth Anesthesia Del Locatn Provider FOB Unknown 1996 Sujey live - full term Unknown 1999 Coleen live - full term HPI Encounter for routine gynecological examination Details: SHIRA GIBSON is a 59 year old who presents for annual exam. Last PAP: 05/16/2023 - normal History of abnormal PAP: Last mammogram: 12/16/2023 - normal History of abnormal mammogram: Colon cancer screening: colonoscopy 2018 - due every 10 years Other preventative health care screenings: PCP Sarah Female Reproductive History Last Menstrual Period: 09/10/22 Questions: metorrhagia: No, sexually active: Yes, dyspareunia: No and PCB: No Menopausal Symptoms: No hot flashes, No night sweats, No weight change, No mood changes, No difficulty concentrating, No sleep problems and No change in libido ROS Const Constitutional: Reports as per HPI; Denies fatigue, increased appetite, poor appetite, night sweats, weight gain or weight loss Cardio Card: Denies chest pain Resp Resp: Denies cough or dyspnea GI GI: Reports as per HPI; Denies abdominal pain, bloating, constipation, nausea or vomiting : Reports as per HPI and other; Denies difficulty voiding, dysuria, hematuria, hot flashes, nipple discharge, pelvic pain, prolapse symptoms, urinary frequency, urinary incontinence, urinary urgency, vaginal discharge, vaginal dryness, vaginal odor or vaginal pruritus Skin Skin/Breast: Denies changing lesions, breast mass, breast pain, breast skin changes or nipple discharge Psych Psych: Denies anxiety, change in libido, depression or difficulty concentrating Exam Const General: cooperative, healthy appearing, comfortable, no acute distress, well developed and well groomed [facility] Head: normal to inspection and normocephalic Ears: hearing grossly normal bilaterally and external ears normal Nose: external nose normal Face and sinus: normal facial exam Neck Neck: normal visual inspection, full ROM and no lymphadenopathy Thyroid: thyroid normal Chest Chest palpation inspection: normal inspection of the chest Breast inspection: normal inspection of the breasts and normal inspection of the axillae Breast palpation: normal palpation of the breasts, normal palpation of the axillae and (more content not included)... Normal [facility] MR/BPon 08-25-2024 MR/BMS.BP [facility] [address], [address] [place] [address] OFFICE VISIT Date of Service: 08/24/24 MR#: [id number] Acct: [id number] Name: SHIRA GIBSON Rep #: [id number] : 1965 Provider: [facility] Ann yanez Age/Sex: 59/F Location: [facility].BP Status: Signed Intake Vital Signs 05/10/24 10:13 06/10/24 10:54 08/25/24 08:26 Height 5 ft 6 in 5 ft 6 in 5 ft 6 in BP Intake Visit Reasons: Follow up Allergies codeine Allergy (Unknown, Verified 03/08/24 08:25) Nausea/Vom/Diarrhea [facility] Medical History Psoriatic arthritis Anxiety Osteoarthritis Hormone deficiency High triglycerides Hyperlipidemia Migraine headache Bone fracture Surgical History S/P tubal ligation S/P knee surgery Family History Father Arthritis Cancer Myocardial infarction Heart disease Mother Arthritis Osteoporosis Thyroid disorder Sister Thyroid disorder Social History household members: spouse Smoking Status: Never smoker alcohol intake: current alcohol intake frequency: a few times a month details: social substance use type: does not use caffeine: Yes what type of physical activity do you participate in: walking and yoga seatbelt use: always do you feel safe at home: Yes additional social history: Jason- retired 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 She reported doing well overall. Shira noted changes in her mother's coping resulting in her experiencing fewer triggers to painful emotions. She discussed recent interactions with her sisters, regarding her mother, noting more validation from one. Shira continues to work on setting healthy boundaries with them regarding their visits to this area to visit their mother. Reinforced her efforts. She discussed stressors related to daughter's MH symptoms. Encouraged verbalization of emotions while providing support. Normalized emotions. Explored interactions with daughter and coping. Provided psychoeducation on coping with specific MH symptoms. No reports of SI. Future-oriented. Exam Mental Status Exam - Psych Appearance well kempt Attitude cooperative, calm, engaged, pleasant and friendly Activity/Motor Behavior MSE activity/motor behavior finding no adventitious movements and appropriate eye contact Speech regular rate, regular volume and regular prosody Mood OK Affect full range Thought Process linear, logical, coherent and goal directed Thought Content no delusions, no hallucinations and ruminations (Related to daughter's MH symptoms.) Suicidal Ideation none Homicidal Ideation none Attention intact Concentration intact Sensorium/Orientati on alert and oriented x3 Memory/Cognition intact Insight good Judgement good Assessment Plan Assessment Plan (1) Anxiety disorder, unspecified: Plan: BH therapy using CBT, DBT, and ACT interventions to address thought patterns contributing to anxious symptoms and to teach coping skills. Psychiatric services to monitor anxious symptoms and medication effectiveness. Plan TREATMENT PLAN Goal 1 - Enhance ability to effectively cope with the full variety of life stressors and worries AEB pt. self-report of progress in this area. Objective 1 - Identify, challenge, and replace biased, fearful self-talk with positive, realistic, and empowering self-talk. Intervention 1 - Explore schemas and self-talk that result in anxiety; assist pt. in challenging biases; replace anxiety triggering messages with reality-based alternatives and positive, realistic self-talk that increase Pt.'s self-confidence in coping with stressors Visit Details Duration of visit (minutes): 60 Duration of counseling (minutes): 60 Total time (minutes): 60 Type of visit: psychotherapy and [id number] [place] [address] PSYTX W PT 60 MINUTES Patient Type Established Diagnoses Anxiety disorder, unspecified F41.9 Time Spent (min) 60 08/26/24 0741 Date Ann Vazquez [facility] Cosigner Signature: Date (if applicable) CC: Normal [facility] Thyroid Antibodieson 025 TG AB < 1.0 Normal 0.0-0.9 [facility] Comment on above: Result Comment: Thyr oglobulin Antibody measured by [employer] It should be noted that the presence of thyroglobulin antibodies may not be pathogenic nor diagnostic, especially at very low levels. The assay core driller helper has found that four percent of individuals without evidence of thyroid disease or autoimmunity will have positive TgAb levels up to 4 IU/mL. Performed at: [address] [id number] Finished Hardware Erector: Angelo Gary PhD, Phone: [phone] Performed By: #### L 501.9520, L506.0400, L501.48414, L3300.6750, L501.9985 ####[facility] [address] [place], [address] THYR PEROX AB 10 IU/mL Normal 0-34 [facility] Comment on above: Performed By: #### L 501.9520, L506.0400, L501.25675, L3300.6750, L501.9985 ####[facility] [id number] [place], [address] CBC, Employeeon 06-13-2024 Absolute Lymph 1.05 X10 3/uL Normal 0.83-4.51 [facility] Comment on above: Order Comment: U Performed By: #### L 100.0200, L400.0100, L500.2900 #### [facility] [address] [place], [address] Absolute Neut 2.1 X10 3/uL Normal 2.0-7.7 [facility] Comment on above: Order Comment: U Performed By: #### L 100.0200, L400.0100, L500.2900 #### [facility] [address] [place], [address] Basophils/100 WBC (Bld) 1.1 % High 0-1 [facility] Comment on above: Order Comment: U Performed By: #### L 100.0200, L400.0100, L500.2900 #### [facility] [address] [place], [address] Eosinophils/100 WBC (Bld) 2.2 % Normal 0-5 [facility] Comment on above: Order Comment: U Performed By: #### L 100.0200, L400.0100, L500.2900 #### [facility] [address] [place], [address] Erythrocyte distribution width (RBC) [Ratio] 12.8 % Normal 11.6-14.6 [facility] Comment on above: Order Comment: U Performed By: #### L 100.0200, L400.0100, L500.2900 #### [facility] [address] [place], [address] Hematocrit (Bld) [Volume fraction] 40.4 % Normal 37-47 [facility] Comment on above: Order Comment: U Performed By: #### L 100.0200, L400.0100, L500.2900 #### [facility] [address] [place], [address] Hemoglobin (Bld) [Mass/Vol] 13.8 g/dL Normal 12.0-15.0 [facility] Comment on above: Order Comment: U Performed By: #### L 100.0200, L400.0100, L500.2900 #### [facility] [address] [place], [address] Lymphocytes/100 WBC (Bld) 28.8 % Normal 19-41 [facility] Comment on above: Order Comment: U Performed By: #### L 100.0200, L400.0100, L500.2900 #### [facility] [address] [place], [address] MCH (RBC) [Entitic mass] 29.6 pg Normal 27.0-32.0 [facility] Comment on above: Order Comment: U Performed By: #### L 100.0200, L400.0100, L500.2900 #### [facility] [address] [place], [address] MCHC (RBC) [Mass/Vol] 34.2 g/dL Normal 32-36 [facility] Comment on above: Order Comment: U Performed By: #### L 100.0200, L400.0100, L500.2900 #### [facility] [address] [place], [address] MCV (RBC) [Entitic vol] 86.7 fL Normal 81-99 [facility] Comment on above: Order Comment: U Performed By: #### L 100.0200, L400.0100, L500.2900 #### [facility] [address] [place], [address] Monocytes/100 WBC (Bld) 9.9 % Normal 0-10 [facility] Comment on above: Order Comment: U Performed By: #### L 100.0200, L400.0100, L500.2900 #### [facility] [address] [place], [address] Neutrophils/100 WBC (Bld) 58.0 % Normal 47-70 [facility] Comment on above: Order Comment: U Performed By: #### L 100.0200, L400.0100, L500.2900 #### [facility] [address] [place], [address] NRBC # 0.00 10 3/uL Normal 0-5 [facility] Comment on above: Order Comment: U Performed By: #### L 100.0200, L400.0100, L500.2900 #### [facility] [address] [place], [address] Nucleated RBC (Bld) [#/Vol] 0 10*3/uL Normal 0-5 [facility] Comment on above: Order Comment: U Performed By: #### L 100.0200, L400.0100, L500.2900 #### [facility] [address] [place], [address] Platelet mean volume (Bld) [Entitic vol] 11.4 fL Normal 6.2-12.0 [facility] Comment on above: Order Comment: U Performed By: #### L 100.0200, L400.0100, L500.2900 #### [facility] [address] [place], [address] Platelets (Bld) [#/Vol] 211 10*3/uL Normal 150-450 [facility] Comment on above: Order Comment: U Performed By: #### L 100.0200, L400.0100, L500.2900 #### [facility] [address] [place], [address] RBC (Bld) [#/Vol] 4.66 10*6/uL Normal 4.2-5.4 [facility] Comment on above: Order Comment: U Performed By: #### L 100.0200, L400.0100, L500.2900 #### [facility] [address] [place], [address] RDW SD 40.4 fl Normal 35.1-43.9 [facility] Comment on above: Order Comment: U Performed By: #### L 100.0200, L400.0100, L500.2900 #### [facility] [address] [place], [address] WBC (Bld) [#/Vol] 3.6 10*3/uL Low 4.4-11.0 [facility] Comment on above: Order Comment: U Performed By: #### L 100.0200, L400.0100, L500.2900 #### [facility] [address] [place], [address] Employee Profileon Cholesterol in LDL [Mass/Vol] 101 mg/dL Normal 0-130 [facility] Comment on above: Order Comment: U Performed By: #### L 100.0200, L400.0100, L500.2900 #### [facility] [address] [place], [address] Free T3on 06-13-2024 Free T3 [Mass/Vol] 2.7 pg/mL Normal 2.18-3.98 [facility] Comment on above: Performed By: #### L 501.9520, L506.0400, L501.53100, L3300.6750, L501.9985 #### [facility] [address] [place], [address] Hemoglobin A1con 06-13-2024 HbA1c (Bld) [Mass fraction] 5.5 % Low <=5.6 [facility] Comment on above: Performed By: #### L 501.9520, L506.0400, L501.42656, L3300.6750, L501.9985 #### [facility] [address] [place], [address] T4 Free Directon 06-13-2024 T4 FREE DIRECT 1.20 ng/dL Normal 0.76-1.46 [facility] Comment on above: Performed By: #### L 501.9520, L506.0400, L501.71692, L3300.6750, L501.9985 #### [facility] [address] [place], [address] Thyroid Stim Hormone (TSH)on 06-13-2024 TSH 2.040 uIU/mL Normal 0.300-4.200 [facility] Comment on above: Performed By: #### L 501.9520, L506.0400, L501.45261, L3300.6750, L501.9985 #### [facility] [address] [place], [address] Urinalysis, Employeeon 06-13 BILIRUBIN URINE Normal Negative [facility] Comment on above: Order Comment: U Urine, Random Result Comment: PT R EFUSED Performed By: #### L 100.0200, L400.0100, L500.2900 #### [facility] [address] [place], [address] Clarity (U) Normal Clear [facility] Comment on above: Order Comment: U Urine, Random Result Comment: PT R EFUSED Performed By: #### L 100.0200, L400.0100, L500.2900 #### [facility] [address] [place], [address] Color (U) Normal Yellow [facility] Comment on above: Order Comment: U Urine, Random Result Comment: PT R EFUSED Performed By: #### L 100.0200, L400.0100, L500.2900 #### [facility] [address] [place], [address] GLUCOSE, UR Normal Normal [facility] Comment on above: Order Comment: U Urine, Random Result Comment: PT R EFUSED Performed By: #### L 100.0200, L400.0100, L500.2900 #### [facility] [address] [place], [address] KETONE UR Normal Negative [facility] Comment on above: Order Comment: U Urine, Random Result Comment: PT R EFUSED Performed By: #### L 100.0200, L400.0100, L500.2900 #### [facility] [address] [place], [address] LEUK ESTERASE Normal Negative [facility] Comment on above: Order Comment: U Urine, Random Result Comment: PT R EFUSED Performed By: #### L 100.0200, L400.0100, L500.2900 #### [facility] [address] [place], [address] Nitrite Ql (U) Normal Negative [facility] Comment on above: Order Comment: U Urine, Random Result Comment: PT R EFUSED Performed By: #### L 100.0200, L400.0100, L500.2900 #### [facility] [address] [place], [address] OCCULT BLOOD-UR Normal Negative [facility] Comment on above: Order Comment: U Urine, Random Result Comment: PT R EFUSED Performed By: #### L 100.0200, L400.0100, L500.2900 #### [facility] [address] [place], [address] pH UR Normal 5.0 - 8.0 [facility] Comment on above: Order Comment: U Urine, Random Result Comment: PT R EFUSED Performed By: #### L 100.0200, L400.0100, L500.2900 #### [facility] [address] [place], [address] PROT DIPSTX Normal Negative [facility] Comment on above: Order Comment: U Urine, Random Result Comment: PT R EFUSED Performed By: #### L 100.0200, L400.0100, L500.2900 #### [facility] [address] [place], [address] SP.GR. DIPSTX Normal 1.002-1.030 [facility] Comment on above: Order Comment: U Urine, Random Result Comment: PT R EFUSED Performed By: #### L 100.0200, L400.0100, L500.2900 #### [facility] [address] [place], [address] UR Preservative Normal [facility] Comment on above: Order Comment: U Urine, Random Result Comment: PT R EFUSED Performed By: #### L 100.0200, L400.0100, L500.2900 #### [facility] [address] [place], [address] UROBILI Normal Normal [facility] Comment on above: Order Comment: U Urine, Random Result Comment: PT R EFUSED Performed By: #### L 100.0200, L400.0100, L500.2900 #### [facility] [address] [place], [place], [address] MR/BMS.BPon 06-10-2024 MR/BMS.BP [place] [address] [place], [place] [address] OFFICE VISIT Date of Service: 06/08/24 MR#: [id number] Acct: [id number] Name: SHIRA GIBSON Rep #: [id number] : 1965 Provider: [facility] Ann yanez Age/Sex: 58/F Location: [facility].BP Status: Signed Intake Vital Signs 04/12/24 09:56 05/10/24 10:13 06/10/24 10:54 Height 5 ft 6 in 5 ft 6 in 5 ft 6 in BP Intake Visit Reasons: Follow up Allergies codeine Allergy (Unknown, Verified 03/08/24 08:25) Nausea/Vom/Diarrhea PFSH Medical History Psoriatic arthritis Anxiety Osteoarthritis Hormone deficiency High triglycerides Hyperlipidemia Migraine headache Bone fracture Surgical History S/P tubal ligation S/P knee surgery Family History Father Arthritis Cancer Myocardial infarction Heart disease Mother Arthritis Osteoporosis Thyroid disorder Sister Thyroid disorder Social History household members: spouse Smoking Status: Never smoker alcohol intake: current alcohol intake frequency: a few times a month details: social substance use type: does not use caffeine: Yes what type of physical activity do you participate in: walking and yoga seatbelt use: always do you feel safe at home: Yes additional social history: Jason- retired 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 She reported doing well overall. Shira identified stressors related to chcf, her 's health, and her 's aging. Encouraged verbalization of emotions while providing support. Normalized emotions. Discussed utilizing a pros and cons list to evaluate chcf options. Shira is meeting with a change management specialist on 06-11-2024. Worked on communication strategies. Problem solved ways she could validate and address her concerns while minimizing the risk of him becoming defensive. No SI. Future- oriented. Exam Mental Status Exam - Psych Appearance well kempt Attitude cooperative, calm, engaged, pleasant and friendly Activity/Motor Behavior MSE activity/motor behavior finding no adventitious movements and appropriate eye contact Speech regular rate, regular volume and regular prosody Mood OK and anxious Affect full range and tearful Thought Process linear, logical, coherent and goal directed Thought Content no delusions, no hallucinations and ruminations (Related to chcf and 's health.) Suicidal Ideation none Homicidal Ideation none Attention intact Concentration intact Sensorium/Orientati on alert and oriented x3 Memory/Cognition intact Insight good Judgement good Assessment Plan Assessment Plan (1) Anxiety disorder, unspecified: Plan: therapy using CBT, DBT, and ACT interventions to address thought patterns contributing to anxious symptoms and to teach coping skills. Psychiatric services to monitor anxious symptoms and medication effectiveness. Plan TREATMENT PLAN Goal 1 - Enhance ability to effectively cope with the full variety of life stressors and worries AEB pt. self-report of progress in this area. Objective 1 - Identify, challenge, and replace biased, fearful self-talk with positive, realistic, and empowering self-talk. Intervention 1 - Explore schemas and self-talk that result in anxiety; assist pt. in challenging biases; replace anxiety triggering messages with reality-based alternatives and positive, realistic self-talk that increase Pt.'s self-confidence in coping with stressors Visit Details Duration of visit (minutes): 60 Duration of counseling (minutes): 60 Total time (minutes): 60 Type of visit: psychotherapy and pocx-cz-jurt Coding [place] [address] PSYTX W PT 60 MINUTES Patient Type Established Diagnoses Anxiety disorder, unspecified F41.9 Time Spent (min) 60 06/10/24 1054 Date Ann Skredd [facility] Cosigner Signature: Date (if applicable) CC: [facility] MR/BMS.BPon 05-10-2024 MR/BMS.BP [address], [place] [address] OFFICE VISIT Date of Service: 05/10/24 MR#: [id number] Acct: [id number] Name: SHIRA GIBSON Rep #: [id number] : 1965 Provider: [facility] Ann yanez Age/Sex: 58/F Location: [facility].BP Status: Signed Intake Vital Signs 03/08/24 08:27 05/10/24 10:13 Height 5 ft 6 in 5 ft 6 in Weight: 192 lb BMI 30.9 BP 121/87 H Blood Pressure Location Rt brachial Position Sitting Respiration 18 Pulse 76 Pulse Source Monitor Temp 97.5 F L Pulse Oximetry (%) 98 Oxygen Delivery Method room air BP Intake Visit Reasons: follow up Allergies codeine Allergy (Unknown, Verified 03/08/24 08:25) Nausea/Vom/Diarrhea PFSH Medical History Psoriatic arthritis Anxiety Osteoarthritis Hormone deficiency High triglycerides Hyperlipidemia Migraine headache Bone fracture Surgical History S/P tubal ligation S/P knee surgery Family History Father Arthritis Cancer Myocardial infarction Heart disease Mother Arthritis Osteoporosis Thyroid disorder Sister Thyroid disorder Social History household members: spouse Smoking Status: Never smoker alcohol intake: current alcohol intake frequency: a few times a month details: social substance use type: does not use caffeine: Yes what type of physical activity do you participate in: walking and yoga seatbelt use: always do you feel safe at home: Yes additional social history: Jason- retired 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 She reported overall doing well but experiencing some work stressors related to changes in personnel and the impact on her and department. Encouraged verbalization of emotions while providing support. Normalized emotions. Worked on reframing using CBT strategies. Also worked on problem solving options for managing stressors personally and with others. Shira reported ongoing stressors with mother but identified managing them well. She also discussed daughter doing well professionally and resulting positive emotions. No reports of SI. Future-oriented. Exam Mental Status Exam - Psych Appearance no apparent distress and well kempt Attitude cooperative, calm, engaged, pleasant and friendly Activity/Motor Behavior appropriate eye contact and fidgeting Speech regular rate, regular volume and regular prosody Mood euythmic Affect full range Thought Process linear, logical, coherent and goal directed Thought Content no delusions and no hallucinations Suicidal Ideation none Homicidal Ideation none Attention intact Concentration intact Sensorium/Orientati on awake, alert and oriented x3 Memory/Cognition intact Insight good Judgement good Assessment Plan Assessment Plan (1) Anxiety disorder, unspecified: Plan: therapy using CBT, DBT, and ACT interventions to address thought patterns contributing to anxious symptoms and to teach coping skills. Plan TREATMENT PLAN - 04/10/2024 Goal 1 - Enhance ability to effectively cope with the full variety of life stressors and worries AEB pt. self-report of progress in this area. Objective 1 - Identify, challenge, and replace biased, fearful self-talk with positive, realistic, and empowering self-talk. Intervention 1 - Explore schemas and self-talk that result in anxiety; assist pt. in challenging biases; replace anxiety triggering messages with reality-based alternatives and positive, realistic self-talk that increase Pt.'s self-confidence in coping with stressors Visit Details Duration of visit (minutes): 60 Duration of counseling (minutes): 60 Total time (minutes): 60 Type of visit: psychotherapy and [id number] [place] [address] PSYTX W PT 60 MINUTES Patient Type Established Diagnoses Anxiety disorder, unspecified F41.9 Time Spent (min) 60 05/10/24 1018 Date Ann Vazquez [facility] Cosigner Signature: Date (if applicable) CC: [facility] MR/BMS.BPon 04-12-2024 MR/BMS.BP [facility] [address] [place] [address], [address] [place] [address] OFFICE VISIT Date of Service: 04/10/24 MR#: [id number] Acct: [id number] Name: SHIRA GIBSON Rep #: [id number] : 1965 [facility] Age/Sex: 58/F Location: [facility].BP Status: Signed Intake Vital Signs 11/30/23 09:33 03/08/24 08:27 04/12/24 09:56 Height 5 ft 6 in 5 ft 6 in 5 ft 6 in Weight: 192 lb BMI 30.9 BP 121/87 H Blood Pressure Location Rt brachial Position Sitting Respiration 18 Pulse 76 Pulse Source Monitor Temp 97.5 F L Pulse Oximetry (%) 98 Oxygen Delivery Method room air BP Intake Visit Reasons: 1 month f/u Allergies codeine Allergy (Unknown, Verified 03/08/24 08:25) Nausea/Vom/Diarrhea PFSH Medical History Psoriatic arthritis Anxiety Osteoarthritis Hormone deficiency High triglycerides Hyperlipidemia Migraine headache Bone fracture Surgical History S/P tubal ligation S/P knee surgery Family History Father Arthritis Cancer Myocardial infarction Heart disease Mother Arthritis Osteoporosis Thyroid disorder Sister Thyroid disorder Social History household members: spouse Smoking Status: Never smoker alcohol intake: current alcohol intake frequency: a few times a month details: social substance use type: does not use caffeine: Yes what type of physical activity do you participate in: walking and yoga seatbelt use: always do you feel safe at home: Yes additional social history: Jason- retired 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 She identified interactions with her mother and her daughter's MH symptoms as recent stressors. Shira has done well putting boundaries in place with her sisters who are no longer staying with her when they travel to this area to visit their mother. She is reporting improved interactions with them. Mother's behaviors continue to trigger distressing emotions. Problem-solved ways to increase pleasantness of visits with mother and worked on acceptance to reduce suffering. Provided psychoeducation on MH symptoms for coping with daughter's symptoms. Shira's reports that her baseline anxiety is higher in the morning. Reviewed and reinforced coping she is using. Worked on additional coping including distraction, addressing thought patterns, and utilizing her dexter as dexter is important to her. No reports of SI. Future- oriented. Exam Mental Status Exam - Psych Appearance well kempt Attitude cooperative, engaged and pleasant Activity/Motor Behavior MSE activity/motor behavior finding no adventitious movements and appropriate eye contact Speech regular rate, regular volume and regular prosody Mood anxious Affect full range Thought Process linear, logical, coherent and goal directed Thought Content no delusions, no hallucinations and ruminations (related to mother's behaviors) Suicidal Ideation none Homicidal Ideation none Attention intact Concentration intact Sensorium/Orientati on alert and oriented x3 Memory/Cognition intact Insight good Judgement good Assessment Plan Assessment Plan (1) Anxiety disorder, unspecified: Plan: therapy using CBT, DBT, and ACT interventions to address thought patterns contributing to anxious symptoms and to teach coping skills. Psychiatric services to monitor anxious symptoms and medication effectiveness. Plan TREATMENT PLAN - 04/10/2024 Goal 1 - Enhance ability to effectively cope with the full variety of life stressors and worries AEB pt. self-report of progress in this area. Objective 1 - Identify, challenge, and replace biased, fearful self-talk with positive, realistic, and empowering self-talk. Intervention 1 - Explore schemas and self-talk that result in anxiety; assist pt. in challenging biases; replace anxiety triggering messages with reality-based alternatives and positive, realistic self-talk that increase Pt.'s self-confidence in coping with stressors. Visit Details Duration of visit (minutes): 60 Duration of counseling (minutes): 60 Total time (minutes): 60 Type of visit: psychotherapy and [id number] C[place] [address] PSYTX W PT 60 MINUTES Patient Type Established Diagnoses Anxiety disorder, unspecified F41.9 Time Spent (min) 60 04/12/24 1000 Date Ann Vazquez [facility] Cosigner Signature: Da (more content not included)... Normal [facility] Hand Min 3 Viewson 4 Hand Min 3 Views [facility] Imaging Services [address] [place], [place] [id number] Hand Min 3 Views MR#: [id number] Acct: [id number] Name: SHIRA GIBSON Rep #: [id number] : 1965 F 58 From: Mi Arora MD PCP: Dr. Cornelia Smith, DO Status: REG CLI Study: Hand Min 3 Views Date of Exam: 03/08/24 Exam# [id number] Ordering Dr: Hugo Shea MD -[id number] EXAM: XR RIGHT HAND COMPLETE, 3 OR MORE VIEWS CLINICAL INDICATION: Right hand pain TECHNIQUE: Frontal, lateral and oblique views of the right hand. COMPARISON: July 14, 2018 FINDINGS: BONES/JOINTS: And new mild widening of the fifth DIP joint with mild broadening and irregular articular margins. No acute fracture. No subluxation. Normal alignment. No sclerotic or destructive changes observed. SOFT TISSUES: There is soft tissue swelling around the second and third DIP joints and marked joint space narrowing and interdigitating margins at both joints, with hypertrophic broadened margins of the opposing periarticular surfaces, new from prior exam. There is also new degenerative change of the IP joint of the thumb with mild surrounding periarticular soft tissue swelling. No radiopaque foreign body. RAD/Hand Min 3 Views IMPRESSION: 1. 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 New from 2019. Associated soft tissue swelling. Especially marked destructive changes of the joints with interdigitating margins at the second and third DIP joints. 2. Not a typical appearance of primary osteoarthritis. Erosive osteoarthritis, rheumatoid, and inflammatory psoriatic and other etiologies of arthritis are suggested etiologies. Electronically Signed: Mi Arora MD at 1:58 EST , CC: Dr. Cornelia Smith DO; Dr. Hugo Shea MD Senior Lead Software Engineer: Signed Normal [facility] Plastic Surgery Visit Report on 03-08-2024 Plastic Surgery Visit Report [facility] [address] [facility], [address] [place] [address] OFFICE VISIT Date of Service: 03/08/24 MR#: [id number] Acct: [id number] Name: SHIRA GIBSON Rep #: [id number] : 1965 Provider: Dr. Hugo Shea MD Age/Sex: 58/F Location: [facility] Status: Signed with Addenda ADDENDUM by Dr. Hugo Shea MD on 03/12/24 at 0857 Assessment and Plan (No Qualifiers) Assessment and Plan (1) Osteoarthritis, hand, primary localized: Status: Acute (2) Osteoarthritis of hand, right: Status: Acute Comment: Thumb IP joint most affected Plan After further review of xrays, and thinking about dystrophic nail changes and history of psoriatic skin disease, I'm concerned she does in fact have psoriatic arthritis despite being told she didn't by previous rheum consult. I'm referring to another Legal Project Manager (discussed with patient and she's happy with the plan)./ She reports celebrex has been helping with her pain. 03/12/24 0857 Date Hugo Shea MD cc: * Signed Intake Vital Signs 11/30/23 09:33 03/06/24 06:29 03/08/24 08:27 Height 5 ft 6 in 5 ft 6 in 5 ft 6 in Weight: 192 lb BMI 30.9 BP 121/87 H Blood Pressure Location Rt brachial Position Sitting Respiration 18 Pulse 76 Pulse Source Monitor Temp 97.5 F L Temp Source Oral Pulse Oximetry (%) 98 Oxygen Delivery Method room air Intake Visit Reasons: PAIN IN RIGHT THUMB Chief Complaint: Right Thumb pain Is patient in pain?: Yes (Daniel Hands ) Pain scale (1-10): 4 Allergies codeine Allergy (Unknown, Verified 03/08/24 08:25) Nausea/Vom/Diarrhea Medications ???Medication ???Instructions ???Recorded ???Confirmed ???Type sumatriptan succinate 100 mg 100 mg PO .2 x q month 01/02/19 03/08/24 History tablet (Imitrex) simvastatin 5 mg tablet 5 mg PO DAILY 10/15/21 03/08/24 History celecoxib 100 mg capsule (Celebrex) 100 mg PO BID 7 days #14 caps 03/08/24 03/08/24 Rx meloxicam 7.5 mg tablet 7.5 mg PO QDAY 03/08/24 03/08/24 History Nurse's Note: Hand pain and swelling x6 years, worsened over past 3 yr and right thumb worsened in last year PFSH Medical History Psoriatic arthritis Anxiety Osteoarthritis Hormone deficiency High triglycerides Hyperlipidemia Migraine headache Bone fracture Surgical History S/P tubal ligation S/P knee surgery Family History Father Arthritis Cancer Myocardial infarction Heart disease Mother Arthritis Osteoporosis Thyroid disorder Sister Thyroid disorder Social History household members: spouse Smoking Status: Never smoker alcohol intake: current alcohol intake frequency: a few times a month details: social substance use type: does not use caffeine: Yes what type of physical activity do you participate in: walking and yoga seatbelt use: always do you feel safe at home: Yes additional social history: Jason- retired 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 The pain is located mostly at the IP joint, and she denies any base of thumb pain. She has seen a hand specialist in [place] and was diagnosed with osteoarthritis (OA), who recommended deferral of any surgical management until severity increases. She has been a patient of Dr. Zoë Hernandez'juan in the past, who has been concerned for the patient having psoriatic arthritis as she has had psoriasis. This led to a referral to a gamb cutter who did not think that she had rheumatoid or psoriatic arthritis, but rather regular OA. Patient reports that the pain and swelling is worse with use, and improved with rest and elevation. She also reports that she has had an elevated uric acid level drawn (her PCP is Dr. Rivera), but she is never had a hot and swollen joint concerning of gout. ROS General General: Yes good health; No fatigue, fever(s) or weight loss HENMT HENMT: No rhinitis, sore throat/mouth sore, nasal congestion, contacts or glaucoma Endo Endocrine: No thyroid disease, polydipsia, heat intolerance, cold intolerance, hepatitis or excessive urine Skin Skin: No Bleeding, bruising, changing moles or suspicious lesion Musc Musculoskeletal: Yes joint pain, joint stiffness, muscle weakness, back pain, osteoarthritis and Muscle aches/ myalgia Neuro Neurological: Yes headache(s), No lightheadedness and No numbness (more content not included)... Normal [facility] MR/BMS.BPon 03-06-2024 MR/BMS.BP [facility] [address] [place] [address], [address] [place] [id number] OFFICE VISIT Date of Service: 03/05/24 MR#: [id number] Acct: [id number] Name: SHIRA GIBSON Rep #: [id number] : 1965 Provider: [facility] Ann yanez Age/Sex: 58/F Location: [facility].BP Status: Signed Intake Vital Signs 11/30/23 09:33 03/06/24 06:29 Height 5 ft 6 in 5 ft 6 in BP Intake Visit Reasons: continuing care Allergies codeine Allergy (Unknown, Verified 06/28/23 08:57) Nausea/Vom/Diarrhea PFSH Medical History Anxiety Bone fracture High triglycerides Hormone deficiency Hyperlipidemia Migraine headache Osteoarthritis Psoriatic arthritis Surgical History S/P knee surgery S/P tubal ligation Family History Father Arthritis Cancer Myocardial infarction Heart disease Mother Arthritis Osteoporosis Thyroid disorder Sister Thyroid disorder Social History household members: spouse Smoking Status: Never smoker alcohol intake: current alcohol intake frequency: a few times a month details: social substance use type: does not use caffeine: Yes what type of physical activity do you participate in: walking and yoga seatbelt use: always do you feel safe at home: Yes additional social history: Jason- retired 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 is a 58 year-old female who participated in a diagnostic assessment to begin therapy. She previously participated in therapy with this provider at [facility]. Pt. wants to continue therapy with this provider. She is experiencing anxiety related to mother relocating to [facility] to receive long-term care. Relationship with mother has historically been stressful as mother attempts to triangulate family members, will make embarrassing comments, has displayed historic behaviors and medical concerns throughout pt.'s life, and has made choices that are impacting pt. and her siblings financially. She reports some stressors with her sisters who previously stayed in her home whenever they came to the area to visit their mother, which was disruptive to pt. and her . Pt. has made progress setting appropriate limits and boundaries with sisters. She has initiated therapy, in the past, due to stressors associated daughters' life changes, difference in how she and viewed daughters life changes at that time, one child's previous MH symptoms, and adjustment to job changes. She has experienced increased anxious symptoms with menopause. Previous similar episode: Yes Developmental History Developmental History: Family of origin - Pt. is one of three daughters born to her parents who remained until father's . Mother had health issues and surgeries throughout pt.'s life and often was overly focused on them. Mother's primary focus was her own mother (pt.'s maternal grandmother) to the exclusion of pt.'s father. Grandmother lived with the family. Pt.'s father is . Living status - Pt. resides with her . They share 2 adult daughter with whom they are close. One lives locally and is . The other resides in [place]. Pt. reports enjoying spending time with her and this stage of their life. Education - Master's in Social Work from [employer]. 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 Substance use history - No use of nicotine, cannabis, opioid, or other drugs. Consumes alcohol a few times a month socially. Consumes caffeine. Legal Issues - None Nondenominational - Religious Strengths - Pt. is bright and insightful. She has close relationships with her and children and is committed to her family. Pt. wants to take actions consistent with her values. Social - Pt. has supportive friendships. Psychiatric History Previous psychiatric treatment history: No Previous psychiatric diagnoses: adjustment disorder with anxiety Previous psychiatric treatment programs: none Suicidal Ideation Current: No Past: No History of suicide attempt: No Suicide Risk Assessment Suicide risk factors: none Suicide protective factors: connected to treatment, future looking, responsibility for family, family support, social support, spirituality and engaged in work Self Injurious Behavior Current: none Past: none Violent Behavior History of violent behavior: No Medica (more content not included)... Normal [facility] Cervical or vaginal specimen microscopic examination by liquid based cytology (reportOrdered By: Skylar Chester on 05-16-2023 Cytology report Cyto stain.thin prep Doc (Cvx/Vag) Comment . [facility] Comment on above: Criteria not met, HP V Genotype not performed.Performed at: [facility] - [facility] [address] [id number] Director: Karrie Renee MD, Phone: [phone] at: =G - [facility] [address] [place], [place] [id number] Director: Karrie Renee MD, Phone: [phone] Cervical or vagninal specime n microscopic examination by cytology stain (reported asOrdered By: Skylar Chester on 05-16-2023 Cytology report Cyto stain Doc (Cvx/Vag) Comment . [facility] Comment on above: The Pap smear is a s creening test designed to aid in thedetection of premalignant and malignant conditions of theuterine cervix. It is not a diagnostic procedure andshould not be used as the sole means of detecting cervicalcancer. Both false-positive and false-negative reports dooccur. Detection in cervical specim en of any of human papilloma virus (HPV) 16, 18, 31, 33,Ordered By: Skylar Chester on 05-16-2023 HPV 16+18+31+33+35+39+45+5 1+52+56+58+59+66+68 DNA Probe+sig amp Ql (Cvx) Negative Negative [facility] Comment on above: This nucleic acid am plification test detects fourteen high- risk HPV types (16,18,31,33,35,39,45,51,52,56,58,59,66,68)without differentiation. Laboratory - CytologyOrdered By: Skylar Chester on 05-16-2023 Deck Molder Cyto stain Nom (Cvx/Vag) [ID] Comment . [facility] Comment on above: Jamie connelly, Striper Spray Gun (ASCP) Laboratory - Miscellaneous t estsOrdered By: Skylar Chester on 05-16-2023 Service comment (Unsp spec) [Interp] . . [facility] Thin prep Papanicolaou smear with manual screeningOrdered By: Skylar Chester on 05-16-2023 Thin prep Papanicolaou smear with manual screening Comment . [facility] Comment on above: NEGATIVE FOR INTRAEP ITHELIAL LESION OR MALIGNANCY.CELLULAR CHANGES ASSOCIATED WITH ATROPHY ARE PRESENT. This liquid based Th inPrep(R) pap test was screened withthe use of an image guided system. Basophil percentageOrdered B y: Skylar Chester on 05-10-2023 Chloride [Moles/Vol] 109 mmol/L 98-107 [facility] Glucose [Mass/Vol] 99 mg/dL 74-106 [facility] Potassium [Moles/Vol] 4.0 mmol/L 3.5-5.1 [facility] Sodium [Moles/Vol] 141 mmol/L 136-145 [facility] Laboratory - Chemistry and C hemistry - challengeOrdered By: Skylar Chester on 05-10-2023 CO2 [Moles/Vol] 27.0 mmol/L 21.0-32.0 [facility] Urea nitrogen/Creatinine [Mass ratio] 31.9 mg/mg 10 [facility] No Panel InformationOrdered By: Skylar Chester on 05-10-2023 Estimated GFR (MDRD) Amer 97 mL/min >60 [facility] Comment on above: GFR Calc Estimated GFR (MDRD) Non-Af Amer 81 mL/min >60 [facility] Comment on above: Non- GFR Calc Serum or plasma calcium lisandro urement (mass/volume)Ordered By: Skylar Chester on 05-10-2023 Calcium [Mass/Vol] 9.7 mg/dL 8.5-10.1 [facility] Serum or plasma creatinine m easurement (mass/volume)Ordered By: Skylar Chester on 05-10-2023 Creatinine [Mass/Vol] 0.78 mg/dL 0.55-1.02 [facility] Comment on above: The validity of the calculated GFR & GFRAA in patients over 70 years has not been determined. Clinical correlation is essential. Serum or plasma urea nitroge n measurement (mass/volume)Ordered By: Skylar Chester on 05-10-2023 Urea nitrogen [Mass/Vol] 25 mg/dL 7-18 [facility] Thin prep Papanicolaou smear with manual screeningOrdered By: Skylar Chester on 05-10-2023 Thin prep Papanicolaou smear with manual screening 5 5-15 [facility] Whole blood hemoglobin A1c/t otal hemoglobin ratio (mass fraction)Ordered By: Skylar Chester on 05-10-2023 HbA1c (Bld) [Mass fraction] 5.7 % 3.8-5.6 [facility] Comment on above: Normal < 5.7 % Predi abetic 5.7 - 6.4 % Diabetic >or= 6.5 % Please note range changes. Absolute lymphocyte countOrd ered By: HEALTH ASSESSMENT on 10-26-2022 Lymphocytes Auto (Unsp spec) [#/Vol] 1.41 10*3/uL 0.83-4.51 [facility] Absolute reticulocyte countO rdered By: HEALTH ASSESSMENT on 10-26-2022 Reticulocytes (Bld) [#/Vol] 0.00 10*3/uL 0-5 [facility] Basophil percentageOrdered B y: HEALTH ASSESSMENT on 10-26-2022 Basophil percentage 3.5 mg/dL 2.5-4.9 [facility] Bilirubin [Mass/Vol] 0.60 mg/dL 0.20-1.00 [facility] Comment on above: For patients on eltr ombopag therapy, use of Dimension [place] TBIL is not recommended. Chloride [Moles/Vol] 106 mmol/L 98-107 [facility] Cholesterol [Mass/Vol] 248 mg/dL <200 [facility] Comment on above: <200 mg/dL Desirable 200-240 mg/dL Borderline >240 mg/dL High Risk Glucose [Mass/Vol] 102 mg/dL 74-106 [facility] Comment on above: Fasting Glucose resu lt from 100 to 125 mg/dL suggests IMPAIRED HOMEOSTASIS per A.D.A. criteria. LDH [Catalytic activity/Vol] 210 U/L 84-246 [facility] Neutrophils (Bld) [#/Vol] 3.3 10*3/uL 2.0-7.7 [facility] Potassium [Moles/Vol] 4.1 mmol/L 3.5-5.1 [facility] Protein [Mass/Vol] 7.4 g/dL 6.4-8.2 [facility] Sodium [Moles/Vol] 139 mmol/L 136-145 [facility] Triglyceride [Mass/Vol] 176 mg/dL <199 [facility] Comment on above: The drugs N-Acetylcy steine and Metamizole may falsely depress this assay.Serum Triglycerides Reference Interval Normal <150 mg/dL Borderline high 150 - 199 mg/dL High 200 - 499 mg/dL Very High > or = 500 mg/dL WBC (Bld) [#/Vol] 5.4 10*3/uL 4.4-11.0 [facility] Blood erythrocytes count (nu mber/volume)Ordered By: HEALTH ASSESSMENT on 10-26-2022 RBC (Bld) [#/Vol] 4.73 10*6/uL 4.2-5.4 [facility] Blood hemoglobin measurement (mass/volume)Ordered By: HEALTH ASSESSMENT on 10-26-2022 Hemoglobin (Bld) [Mass/Vol] 14.1 g/dL 12.0-15.0 [facility] Blood platelet mean volumeOr dered By: HEALTH ASSESSMENT on 10-26-2022 Platelet mean volume (Bld) [Entitic vol] 10.4 fL 6.2-12.0 [facility] Determination of erythrocyte mean corpuscular volume (MCV)Ordered By: HEALTH ASSESSMENT on 10-26-2022 MCV (RBC) [Entitic vol] 89.9 fL 81-99 [facility] Direct bilirubinOrdered By: HEALTH ASSESSMENT on 10-26-2022 Bilirubin.direct [Mass/Vol] 0.15 mg/dL 0.00-0.30 [facility] Hematocrit Auto (Bld) [Volum e fraction]Ordered By: HEALTH ASSESSMENT on 10-26-2022 Hematocrit (Bld) [Volume fraction] 42.5 % 37-47 [facility] Laboratory - Chemistry and C hemistry - challengeOrdered By: HEALTH ASSESSMENT on 10-26-2022 ALP [Catalytic activity/Vol] 71 U/L 45-117 [facility] ALT [Catalytic activity/Vol] 25 U/L 13-56 [facility] Cholesterol.total/Chol esterol in HDL [Mass ratio] 4.20 {ratio} [facility] CO2 [Moles/Vol] 28.0 mmol/L 21.0-32.0 [facility] Globulin (S) [Mass/Vol] 3.4 g/dL 2.2-4.2 [facility] Urea nitrogen/Creatinine [Mass ratio] 20.0 mg/mg 10-20 [facility] Laboratory - Hematology and Cell countsOrdered By: HEALTH ASSESSMENT on 10-26-2022 Erythrocyte distribution width (RBC) [Entitic vol] 42.0 fL 35.1-43.9 [facility] Erythrocyte distribution width (RBC) [Ratio] 12.7 % 11.6-14.6 [facility] MCH (RBC) [Entitic mass] 29.8 pg 27.0-32.0 [facility] Nucleated RBC/100 WBC (Bld) [Ratio] 0 % 0-5 [facility] MCHC Auto (RBC) [Mass/Vol]Or dered By: HEALTH ASSESSMENT on 10-26-2022 MCHC (RBC) [Mass/Vol] 33.2 g/dL 32-36 [facility] No Panel InformationOrdered By: HEALTH ASSESSMENT on 10-26-2022 Estimated GFR (MDRD) Amer 83 mL/min >60 [facility] Comment on above: GFR Calc Estimated GFR (MDRD) Non-Af Amer 69 mL/min >60 [facility] Comment on above: Non- GFR Calc Platelets bldOrdered By: [facility]ID [facility] ASSESSMENT on 10-26-2022 Platelets (Bld) [#/Vol] 239 10*3/uL 150-450 [facility] Segmented neutrophils/100 WB C Auto (Bld)Ordered By: HEALTH ASSESSMENT on 10-26-2022 Segmented neutrophils/100 WBC (Bld) 62.1 % 47-70 [facility] Serum or plasma albumin lisandro urement (mass/volume)Ordered By: HEALTH ASSESSMENT on 10-26-2022 Albumin [Mass/Vol] 4.0 g/dL 3.2-5.0 [facility] Serum or plasma albumin/glob ulin mass ratioOrdered By: HEALTH ASSESSMENT on 10-26-2022 Albumin/Globulin [Mass ratio] 1.2 {ratio} 0.9-2.4 [facility] Serum or plasma calcium lisandro urement (mass/volume)Ordered By: HEALTH ASSESSMENT on 10-26-2022 Calcium [Mass/Vol] 9.3 mg/dL 8.5-10.1 [facility] Serum or plasma cholesterol in HDL measurement (mass/volume)Ordered By: HEALTH ASSESSMENT on 10-26-2022 Cholesterol in HDL [Mass/Vol] 59 mg/dL >40 [facility] Comment on above: The drugs N-Acetylcy steine and Metamizole may falsely depress this assay. Reference Range HDL <40 mg/dL Low HDL Cholesterol HDL >or= 60 mg/dL High HDL Cholesterol Serum or plasma cholesterol in VLDL measurement (mass/volume)Ordered By: HEALTH ASSESSMENT on 10-26-2022 Cholesterol in VLDL [Mass/Vol] 35 mg/dL 5-40 [facility] Serum or plasma creatinine m easurement (mass/volume)Ordered By: HEALTH ASSESSMENT on 10-26-2022 Creatinine [Mass/Vol] 0.90 mg/dL 0.55-1.02 [facility] Comment on above: The validity of the calculated GFR & GFRAA in patients over 70 years has not been determined. Clinical correlation is essential. Serum or plasma low density lipoprotein (LDL) cholesterol measurement (mass/volume)Ordered By: HEALTH ASSESSMENT on 10-26-2022 Cholesterol in LDL [Mass/Vol] 154 mg/dL 0-130 [facility] Serum or plasma urea nitroge n measurement (mass/volume)Ordered By: HEALTH ASSESSMENT on 10-26-2022 Urea nitrogen [Mass/Vol] 18 mg/dL 7-18 [facility] Serum or plasma uric acid me asurement (mass/volume)Ordered By: HEALTH ASSESSMENT on 10-26-2022 Urate [Mass/Vol] 5.9 mg/dL 2.6-6.0 [facility] Comment on above: The drugs N-Acetylcy steine and Metamizole may falsely depress this assay. Thin prep Papanicolaou smear with manual screeningOrdered By: HEALTH ASSESSMENT on 10-26-2022 Thin prep Papanicolaou smear with manual screening 22 U/L 15-37 [facility] Thin prep Papanicolaou smear with manual screening 5 5-15 [facility] Absolute lymphocyte counton 01-08-2022 Lymphocytes Auto (Unsp spec) [#/Vol] 0.89 10*3/uL 0.83-4.51 [facility] Work Phone: Absolute reticulocyte counto n 01-08-2022 Reticulocytes (Bld) [#/Vol] 0.00 10*3/uL 0-5 [facility] Work Phone: Basophil percentageon 2021 Basophil percentage 3.3 mg/dL 2.5-4.9 [facility] Work Phone: Bilirubin [Mass/Vol] 0.80 mg/dL 0.20-1.00 [facility] Work Phone: Comment on above: For patients on eltr ombopag therapy, use of Dimension [place] TBIL is not recommended. Chloride [Moles/Vol] 109 mmol/L 98-107 [facility] Work Phone: Cholesterol [Mass/Vol] 211 mg/dL <200 [facility] Work Phone: Comment on above: <200 mg/dL Desirable 200-240 mg/dL Borderline >240 mg/dL High Risk Glucose [Mass/Vol] 103 mg/dL 74-106 [facility] Work Phone: Comment on above: Fasting Glucose resu lt from 100 to 125 mg/dL suggests IMPAIRED HOMEOSTASIS per A.D.A. criteria. Neutrophils (Bld) [#/Vol] 2.9 10*3/uL 2.0-7.7 [facility] Work Phone: Potassium [Moles/Vol] 4.1 mmol/L 3.5-5.1 [facility] Work Phone: Protein [Mass/Vol] 7.3 g/dL 6.4-8.2 [facility] Work Phone: Sodium [Moles/Vol] 141 mmol/L 136-145 [facility] Work Phone: Triglyceride [Mass/Vol] 94 mg/dL <199 [facility] Work Phone: Comment on above: The drugs N-Acetylcy steine and Metamizole may falsely depress this assay.Serum Triglycerides Reference Interval Normal <150 mg/dL Borderline high 150 - 199 mg/dL High 200 - 499 mg/dL Very High > or = 500 mg/dL WBC (Bld) [#/Vol] 4.4 10*3/uL 4.4-11.0 [facility] Work Phone: Blood erythrocytes count (nu mber/volume)on 01-08-2022 RBC (Bld) [#/Vol] 4.57 10*6/uL 4.2-5.4 [facility] Work Phone: Blood hemoglobin measurement (mass/volume)on 01-08-2022 Hemoglobin (Bld) [Mass/Vol] 13.5 g/dL 12.0-15.0 [facility] Work Phone: Blood platelet mean volumeon 01-08-2022 Platelet mean volume (Bld) [Entitic vol] 10.7 fL 6.2-12.0 [facility] Work Phone: Determination of erythrocyte mean corpuscular volume (MCV)on 01-08-2022 MCV (RBC) [Entitic vol] 88.6 fL 81-99 [facility] Work Phone: Direct bilirubinon Bilirubin.direct [Mass/Vol] 0.21 mg/dL 0.00-0.30 [facility] Work Phone: Hematocrit Auto (Bld) [Volum e fraction]on 01-08-2022 Hematocrit (Bld) [Volume fraction] 40.5 % 37-47 [facility] Work Phone: Laboratory - Chemistry and C hemistry - challengeon 01-08-2022 ALP [Catalytic activity/Vol] 77 U/L 45-117 [facility] Work Phone: ALT [Catalytic activity/Vol] 49 U/L 13-56 [facility] Work Phone: Cholesterol.total/Chol esterol in HDL [Mass ratio] 3.10 {ratio} [facility] Work Phone: CO2 [Moles/Vol] 26.0 mmol/L 21.0-32.0 [facility] Work Phone: Globulin (S) [Mass/Vol] 3.3 g/dL 2.2-4.2 [facility] Work Phone: Urea nitrogen/Creatinine [Mass ratio] 24.3 mg/mg 10- [facility] Work Phone: Laboratory - Hematology and Cell countson 01-08-2022 Erythrocyte distribution width (RBC) [Entitic vol] 42.9 fL 35.1-43.9 [facility] Work Phone: Erythrocyte distribution width (RBC) [Ratio] 13.2 % 11.6-14.6 [facility] Work Phone: MCH (RBC) [Entitic mass] 29.5 pg 27.0-32.0 [facility] Work Phone: Nucleated RBC/100 WBC (Bld) [Ratio] 0 % 0-5 [facility] Work Phone: MCHC Auto (RBC) [Mass/Vol]on 01-08-2022 MCHC (RBC) [Mass/Vol] 33.3 g/dL 32-36 [facility] Work Phone: No Panel Informationon 01-08 Estimated GFR (MDRD) Amer 105 mL/min >60 [facility] Work Phone: Comment on above: GFR Calc Estimated GFR (MDRD) Non-Af Amer 87 mL/min >60 [facility] Work Phone: Comment on above: Non- GFR Calc Platelets bldon 01-08-2022 Platelets (Bld) [#/Vol] 202 10*3/uL 150-450 [facility] Work Phone: Segmented neutrophils/100 WB C Auto (Bld)on 01-08-2022 Segmented neutrophils/100 WBC (Bld) 66.4 % 47-70 [facility] Work Phone: Serum or plasma albumin lisandro urement (mass/volume)on 01-08-2022 Albumin [Mass/Vol] 4.0 g/dL 3.2-5.0 [facility] Work Phone: Serum or plasma albumin/glob ulin mass ratioon 01-08-2022 Albumin/Globulin [Mass ratio] 1.2 {ratio} 0.9-2.4 [facility] Work Phone: Serum or plasma calcium lisandro urement (mass/volume)on 01-08-2022 Calcium [Mass/Vol] 9.2 mg/dL 8.5-10.1 [facility] Work Phone: Serum or plasma cholesterol in HDL measurement (mass/volume)on 01-08-2022 Cholesterol in HDL [Mass/Vol] 68 mg/dL >40 [facility] Work Phone: Comment on above: The drugs N-Acetylcy steine and Metamizole may falsely depress this assay. Reference Range HDL <40 mg/dL Low HDL Cholesterol HDL >or= 60 mg/dL High HDL Cholesterol Serum or plasma cholesterol in VLDL measurement (mass/volume)on 01-08-2022 Cholesterol in VLDL [Mass/Vol] 19 mg/dL 5-40 [facility] Work Phone: Serum or plasma creatinine m easurement (mass/volume)on 01-08-2022 Creatinine [Mass/Vol] 0.74 mg/dL 0.55-1.02 [facility] Work Phone: Comment on above: The validity of the calculated GFR & GFRAA in patients over 70 years has not been determined. Clinical correlation is essential. Serum or plasma low density lipoprotein (LDL) cholesterol measurement (mass/volume)on 01-08-2022 Cholesterol in LDL [Mass/Vol] 124 mg/dL 0-130 [facility] Work Phone: Serum or plasma urea nitroge n measurement (mass/volume)on 01-08-2022 Urea nitrogen [Mass/Vol] 18 mg/dL 7-18 [facility] Work Phone: Serum or plasma uric acid me asurement (mass/volume)on 01-08-2022 Urate [Mass/Vol] 5.8 mg/dL 2.6-6.0 [facility] Work Phone: Comment on above: The drugs N-Acetylcy steine and Metamizole may falsely depress this assay. Thin prep Papanicolaou smear with manual screeningon 01-08-2022 Thin prep Papanicolaou smear with manual screening 29 U/L 15-37 [facility] Work Phone: Thin prep Papanicolaou smear with manual screening 6 5-15 [facility] Work Phone: Thin prep Papanicolaou smear with manual screening 205 U/L 84-246 [facility] Work Phone: Basophil percentageon 2021 Basophil percentage Not Reportable [facility] Work Phone: Erythrocyte sedimentation ra katelynn 10-23-2021 ESR (Bld) [Velocity] 7 mm/h 0-30 [facility] Work Phone: No Panel Informationon 10-23 Anti-Nuclear Antibody Screen Negative Negative [facility] Work Phone: Comment on above: Performed at: [address] [id number] Director: Angelo Gary PhD, Phone: [phone] [employer] B Antibody Not Reportable [facility] Work Phone: MACHINE FOLDER Antibody Not Reportable [facility] Work Phone: Serum DNA double strand anti body assay (units/volume)on 10-23-2021 DNA double strand Ab Qn (S) Not Reportable [facility] Work Phone: Serum Sammie-1 antibody assay (u nits/volume)on 10-23-2021 Sammie-1 extractable nuclear Ab Qn (S) Not Reportable [facility] Work Phone: Serum Scl-70 extractable nuc lear antibody assay (units/volume)on 10-23-2021 SCL-70 extractable nuclear Ab Qn (S) Not Reportable [facility] Work Phone: Serum Dunn extractable nucl ear antibody detectionon 10-23-2021 Dunn extractable nuclear Ab Ql (S) Not Reportable [facility] Work Phone: Serum cyclic citrullinated p eptide IgG antibody assay (units/volume)on 10-23-2021 Cyclic citrullinated peptide IgG Qn 7 units 0-19 [facility] Work Phone: Comment on above: Negative <20 Weak po sitive 20 - 39 Moderate positive 40 - 59 Strong positive >59Performed at: [address] [id number] Director: Hayley Chance MD, Phone: [phone] Serum or plasma C reactive p rotein measurement (mass/volume)on 10-23-2021 CRP [Mass/Vol] mg/L 0.0-3.0 [facility] Work Phone: Comment on above: C-Reactive Protein ( CRP) provides useful information for thediagnosis, therapy and monitoring of inflammatory processesand associated diseases. For the evaluation of Relative Riskfor Cardiovascular Disease, a High Sensitivity CRP (HSCRP)should be ordered. Serum rheumatoid factor dete ctionon 10-23-2021 Rheumatoid factor Ql (S) < 10.0 IU/mL <15 [facility] Work Phone: Laboratory - Chemistry and C hemistry - challengeon 09-17-2021 Free T4 [Mass/Vol] 0.94 ng/dL 0.76-1.46 [facility] Work Phone: No Panel Informationon 09-17 Free Triiodothyronine (T3) pg/dL 2.5 pg/mL 2.18-3.98 [facility] Work Phone: Thyroid Stimulating Hormone (TSH) 2.32 uIU/mL 0.358-3.74 [facility] Work Phone: No Panel Informationon 08-13 Follicle Stimulating Hormone 35.1 mIU/mL [facility] Work Phone: Comment on above: NORMAL REFERENCE RAN GES FEMALE FOLLICULAR 2.3 - 12.6 mIU/mL MID-CYCLE PEAK 5.2 - 17.5 mIU/mL LUTEAL 1.7 - 12.9 mIU/mL POST-MENOPAUSAL ON MHT 5.9 - 72.8 mIU/mL NOT ON MHT 12.7 - 132.2 mlU/mL MALE 0.7 - 10.8 mIU/mL Serum or plasma estradiol (E 2) measurement (mass/volume)on 08-13-2021 E2 [Mass/Vol] 197.2 pg/mL [facility] Work Phone: Comment on above: NORMAL REFERENCE RAN GES FEMALE FOLLICULAR 21.4 - 164.8 pg/mL MID-CYCLE PEAK 49.9 - 367.2 pg/mL LUTEAL 40.2 - 259.0 pg/mL POST-MENOPAUSAL ON MHT <11.0 - 462.1 pg/mL NOT ON MHT <11.0 - 58.3 pg/mL MALE <11.0 - 52.5 pg/mL NOTE:[employer] HAS CONFIRMED THE DRUG FULVETRANT (FASLODEX) MAY CAUSE FALSELY ELEVATED ESTRADIOL RESULTS WHEN USING THIS TEST METHOD. IF PATIENT IS TAKING FULVESTRANT AN ALTERNATIVE METHOD SHOULD BE USED TO DETERMINE ESTRADIOL CONCENTRATION. Serum or plasma progesterone measurement (mass/volume)on 08-13-2021 Progesterone [Mass/Vol] 1.25 ng/mL See Comment [facility] Work Phone: Comment on above: Progesterone Referen ce Table: UNITS Female: Follicular 0.15 - 1.40 ng/mL Luteal 3.34 - 25.56 ng/mL Mid-luteal 4.44 - 28.03 ng/mL Postmenopausal 0.0 - 0.73 ng/mL : 1st Trimester 11.22 - 90.00 ng/mL 2nd Trimester 25.55 - 89.40 ng/mL 3rd Trimester 48.40 -422.50 ng/mL Absolute lymphocyte counton 04-28-2021 Lymphocytes Auto (Unsp spec) [#/Vol] 1.06 10*3/uL 0.83-4.51 [facility] Work Phone: Basophil percentageon 2021 Basophils/100 WBC (Bld) 0.6 % 0-1 [facility] Work Phone: Bilirubin [Mass/Vol] 1.00 mg/dL 0.20-1.00 [facility] Work Phone: Comment on above: For patients on eltr ombopag therapy, use of Dimension [place] TBIL is not recommended. Chloride [Moles/Vol] 104 mmol/L 98-107 [facility] Work Phone: Cholesterol [Mass/Vol] 195 mg/dL <200 [facility] Work Phone: Comment on above: <200 mg/dL Desirable 200-240 mg/dL Borderline >240 mg/dL High Risk Eosinophils/100 WBC (Bld) 1.3 % 0-5 [facility] Work Phone: Glucose [Mass/Vol] 97 mg/dL 74-106 [facility] Work Phone: Neutrophils (Bld) [#/Vol] 3.6 10*3/uL 2.0-7.7 [facility] Work Phone: Neutrophils/100 WBC (Bld) 68.6 % 47-70 [facility] Work Phone: Potassium [Moles/Vol] 4.0 mmol/L 3.5-5.1 [facility] Work Phone: Protein [Mass/Vol] 7.7 g/dL 6.4-8.2 [facility] Work Phone: Sodium [Moles/Vol] 139 mmol/L 136-145 [facility] Work Phone: Triglyceride [Mass/Vol] 116 mg/dL [facility] Work Phone: Comment on above: The drugs N-Acetylcy steine and Metamizole may falsely depress this assay.Serum Triglycerides Reference Interval Normal <150 mg/dL Borderline high 150 - 199 mg/dL High 200 - 499 mg/dL Very High > or = 500 mg/dL WBC (Bld) [#/Vol] 5.3 10*3/uL 4.4-11.0 [facility] Work Phone: Blood erythrocytes count (nu mber/volume)on 04-28-2021 RBC (Bld) [#/Vol] 4.64 10*6/uL 4.2-5.4 [facility] Work Phone: Blood hemoglobin measurement (mass/volume)on 04-28-2021 Hemoglobin (Bld) [Mass/Vol] 13.7 g/dL 12.0-15.0 [facility] Work Phone: Blood lymphocytes/100 leukoc yteson 04-28-2021 Lymphocytes/100 WBC (Bld) 20.2 % 19-41 [facility] Work Phone: Blood monocytes/100 leukocyt eson 04-28-2021 Monocytes/100 WBC (Bld) 9.1 % 0-10 [facility] Work Phone: Blood platelet mean volumeon 04-28-2021 Platelet mean volume (Bld) [Entitic vol] 10.4 fL 6.2-12.0 [facility] Work Phone: Determination of erythrocyte mean corpuscular volume (MCV)on 04-28-2021 MCV (RBC) [Entitic vol] 87.9 fL 81-99 [facility] Work Phone: Hematocrit Auto (Bld) [Volum e fraction]on 04-28-2021 Hematocrit (Bld) [Volume fraction] 40.8 % 37-47 [facility] Work Phone: Laboratory - Chemistry and C hemistry - challengeon 04-28-2021 ALP [Catalytic activity/Vol] 54 U/L 45-117 [facility] Work Phone: ALT [Catalytic activity/Vol] 28 U/L 13-56 [facility] Work Phone: CO2 [Moles/Vol] 28.0 mmol/L 21.0-32.0 [facility] Work Phone: Free T4 [Mass/Vol] 1.00 ng/dL 0.76-1.46 [facility] Work Phone: Globulin (S) [Mass/Vol] 3.4 g/dL 2.2-4.2 [facility] Work Phone: Magnesium [Mass/Vol] 2.6 mg/dL [facility] Work Phone: Comment on above: Performed at: [address] [id number] Director: Angelo Gary PhD, Phone: [phone] Urea nitrogen/Creatinine [Mass ratio] 15.7 mg/mg 10-20 [facility] Work Phone: Laboratory - Hematology and Cell countson 04-28-2021 Erythrocyte distribution width (RBC) [Entitic vol] 40.4 fL 35.1-43.9 [facility] Work Phone: Erythrocyte distribution width (RBC) [Ratio] 12.6 % 11.6-14.6 [facility] Work Phone: Immature granulocytes/100 WBC (Bld) 0.200 % 0.0-0.9 [facility] Work Phone: Comment on above: IG% - Immature Granu locytes (promyelocytes, myelocytes and metamyelocytes) > 1% indicates that a LEFT SHIFT is Present. MCH (RBC) [Entitic mass] 29.5 pg 27.0-32.0 [facility] Work Phone: Nucleated RBC/100 WBC (Bld) [Ratio] 0 % 0-5 [facility] Work Phone: MCHC Auto (RBC) [Mass/Vol]on 04-28-2021 MCHC (RBC) [Mass/Vol] 33.6 g/dL 32-36 [facility] Work Phone: No Panel Informationon 04-28 Estimated GFR (MDRD) Amer 101 mL/min >60 [facility] Work Phone: Comment on above: GFR Calc Estimated GFR (MDRD) Non-Af Amer 83 mL/min >60 [facility] Work Phone: Comment on above: Non- GFR Calc Free Triiodothyronine (T3) pg/dL 2.4 pg/mL 2.18-3.98 [facility] Work Phone: Thyroid Stimulating Hormone (TSH) 1.55 uIU/mL 0.358-3.74 [facility] Work Phone: Platelets bldon 04-28-2021 Platelets (Bld) [#/Vol] 211 10*3/uL 150-450 [facility] Work Phone: Serum or plasma albumin lisandro urement (mass/volume)on 04-28-2021 Albumin [Mass/Vol] 4.3 g/dL 3.2-5.0 [facility] Work Phone: Serum or plasma albumin/glob ulin mass ratioon 04-28-2021 Albumin/Globulin [Mass ratio] 1.3 {ratio} 0.9-2.4 [facility] Work Phone: Serum or plasma calcium lisandro urement (mass/volume)on 04-28-2021 Calcium [Mass/Vol] 9.3 mg/dL 8.5-10.1 [facility] Work Phone: Serum or plasma cholesterol in HDL measurement (mass/volume)on 04-28-2021 Cholesterol in HDL [Mass/Vol] 64 mg/dL [facility] Work Phone: Comment on above: The drugs N-Acetylcy steine and Metamizole may falsely depress this assay. Reference Range HDL <40 mg/dL Low HDL Cholesterol HDL >or= 60 mg/dL High HDL Cholesterol Serum or plasma cholesterol in VLDL measurement (mass/volume)on 04-28-2021 Cholesterol in VLDL [Mass/Vol] 23 mg/dL 5-40 [facility] Work Phone: Serum or plasma creatinine m easurement (mass/volume)on 04-28-2021 Creatinine [Mass/Vol] 0.77 mg/dL 0.55-1.02 [facility] Work Phone: Comment on above: The validity of the calculated GFR & GFRAA in patients over 70 years has not been determined. Clinical correlation is essential. Serum or plasma low density lipoprotein (LDL) cholesterol measurement (mass/volume)on 04-28-2021 Cholesterol in LDL [Mass/Vol] 108 mg/dL 0-130 [facility] Work Phone: Serum or plasma urea nitroge n measurement (mass/volume)on 04-28-2021 Urea nitrogen [Mass/Vol] 12 mg/dL 7-18 [facility] Work Phone: Thin prep Papanicolaou smear with manual screeningon 04-28-2021 Thin prep Papanicolaou smear with manual screening 23 U/L 15-37 [facility] Work Phone: Thin prep Papanicolaou smear with manual screening 7 5-15 [facility] Work Phone: Office Visiton 09-15-2016 Documentation of current medications (procedure) Done Invalid Interpretation Code [facility] Work Phone: Protein mass conc Done [facility] Work Phone: Office Visiton 03-08-2013 Documentation of current medications (procedure) Done Invalid Interpretation Code [facility] Medicine [facility] Work Phone: Lab Report: Krystyna 3 GE use only - for LinkLogic import when terms are not otherwise specified 34.7 mg/ml Invalid Interpretation Code [facility] Work Phone: VITD 34.7 mg/ml [facility] Work Phone: Lab Report: Hima 3 Erythrocytes (RBC) 4.35 M/MM2 Invalid Interpretation Code 4.2-5.4 [facility] Medicine [facility] Work Phone: Hematocrit (HCT) 38.9 % Invalid Interpretation Code 37-47 [facility] Work Phone: Hematocrit Volume Fraction (Bld) 38.9 % 37-47 [facility] Work Phone: Hemoglobin (HGB) 13.0 g/dL Invalid Interpretation Code 12.0-15.0 [facility] Work Phone: Platelets 220 10*3/mm3 Invalid Interpretation Code 150-450 [facility] Work Phone: Platelets #/vol (Bld) 220 10*3/mm3 150-450 [facility] Work Phone: RBC #/vol (Bld) 4.35 M/MM2 4.2-5.4 [facility] Work Phone: WBC #/vol (Bld) 4.5 10*3/uL 4.4-11.0 [facility] Work Phone: WBC (Leukocytes) 4.5 10*3/uL Invalid Interpretation Code 4.4-11.0 [facility] Work Phone: [facility] Alanine aminotransferase (ALT) 17 U/L Invalid Interpretation Code 12-78 [facility] Work Phone: Albumin 4.0 g/dL Invalid Interpretation Code 3.4-5.0 [facility] Work Phone: Alkaline phosphatase (ALP) 76 U/L Invalid Interpretation Code 50-136 [facility] Work Phone: ALP enzyme act/vol (Bld) 76 U/L 50-136 [facility] Work Phone: Aspartate aminotransferase (AST) 13 U/L Invalid Interpretation Code 15-37 [facility] Work Phone: Bilirubin (total) 0.40 mg/dL Invalid Interpretation Code 0.00-1.00 [facility] Work Phone: Calcium 8.5 mg/dL Invalid Interpretation Code 8.5-10.1 [facility] Work Phone: Chloride 106 mmol/L Invalid Interpretation Code 98-107 [facility] Work Phone: Creatinine 0.7 mg/dL Invalid Interpretation Code 0.6-1.0 [facility] Work Phone: Glucose 86 mg/dL Invalid Interpretation Code 70-110 [facility] Work Phone: Glucose mass conc 86 mg/dL 70-110 [facility] Work Phone: Potassium 4.2 mmol/L Invalid Interpretation Code 3.5-5.1 [facility] Work Phone: Sodium 143 mmol/L Invalid Interpretation Code 136-145 [facility] Work Phone: Urea nitrogen 14 mg/dL Invalid Interpretation Code 7-18 [facility] Work Phone: Lab Report: MGon 12-28-2012 Magnesium 2.3 mg/dL Invalid Interpretation Code 1.8-2.4 [facility] Work Phone: Lab Report: TSHon 12-28-2012 Thyroid stimulating hormone (TSH) 2.19 u[iU]/mL Invalid Interpretation Code 0.358-3.74 [facility] Work Phone: Lab Report: LYMEWBon 013 Borellia Burgdorferi, IgM, QL, western blot Negative Normal . [facility] Work Phone: [email or web address] Negative Normal . [facility] Work Phone: Lab Report: CRPon 11-16-2012 C reactive protein (CRP) mg/L Normal 0.0-3.0 [facility] Work Phone: Lab Report: SEDon 11-16-2012 Erythrocyte sedimentation rate 15 mm/h Normal 0-20 [facility] Work Phone: Office Visiton 08-09-2011 Tobacco smoking status NHIS never smoker [facility] Work Phone: Tobacco use CPHS never smoker Invalid Interpretation Code [facility] Work Phone: Vital Signs Date Time Vital Sign Value Performing Clinician Hany greenfield 06-14-2023 13:07-0400 Body height 167.[address] Cornelia Smith Work Phone: [facility] 06-14-2023 13:07-0400 Body mass index (BMI) [Ratio] 31.4 kg/m2 Dr. Cornelia Smith Work Phone: [facility] 06-14-2023 13:07-0400 Body weight 88.[address] Cornelia Smith Work Phone: [facility] 05-16-2023 16:02-0500 Body height 167.[address] Cornelia Smith Work Phone: [facility] 05-16-2023 15:57-0500 Body mass index (BMI) [Ratio] 31.9 kg/m2 Dr. Cornelia Smith Work Phone: [facility] 05-16-2023 15:57-0500 Body weight 89.[address] Cornelia Smith Work Phone: [facility] 05-16-2023 15:57-0500 Diastolic blood pressure 82 mm[Hg] Dr. Cornelia Smith Work Phone: [facility] 05-16-2023 15:57-0500 Systolic blood pressure 121 mm[Hg] Dr. Cornelia Smith Work Phone: [facility] 02-16-2022 15:23-0500 Body height 167.[address] Cornelia Smith Work Phone: [facility] Work Phone: 02-16-2022 15:23-0500 Body mass index (BMI) [Ratio] 31.6 kg/m2 Dr. Cornelia Smith Work Phone: [facility] Work Phone: 02-16-2022 15:23-0500 Body weight 88.[address] Cornelia Smith Work Phone: [facility] Work Phone: 02-16-2022 15:23-0500 Diastolic blood pressure 85 mm[Hg] Dr. Cornelia Smith Work Phone: [facility] Work Phone: 02-16-2022 15:23-0500 Systolic blood pressure 130 mm[Hg] Dr. Cornelia Smith Work Phone: [facility] Work Phone: 02-08-2022 16:18-0500 Body weight 88.[address] Cornelia Smith Work Phone: [facility] Work Phone: 01-04-2022 13:08-0400 Body height 167.[address] Cornelia Smith Work Phone: [facility] Work Phone: 01-04-2022 13:07-0400 Body mass index (BMI) [Ratio] 31.4 kg/m2 Dr. Cornelia Smith Work Phone: [facility] Work Phone: 01-04-2022 13:07-0400 Body weight 88.[address] Cornelia Smith Work Phone: [facility] Work Phone: 01-04-2022 13:07-0400 Diastolic blood pressure 76 mm[Hg] Dr. Cornelia Smith Work Phone: [facility] Work Phone: 01-04-2022 13:07-0400 Systolic blood pressure 110 mm[Hg] Dr. Cornelia Smith Work Phone: [facility] Work Phone: 12-19-2021 00:31-0400 Body weight 85.[address] Cornelia Smith Work Phone: [facility] Work Phone: 12-01-2021 09:39-0400 Body height 167.[address] Cornelia Smith Work Phone: [facility] Work Phone: 12-01-2021 09:39-0400 Body weight 85.[address] Cornelia Smith Work Phone: [facility] Work Phone: 11-09-2021 18:29-0400 Body weight 87.[address] Cornelia Smith Work Phone: [facility] Work Phone: 10-15-2021 10:21-0400 Body mass index (BMI) [Ratio] 30.8 kg/m2 Dr. Cornelia Smith Work Phone: [facility] Work Phone: 10-15-2021 10:21-0400 Body weight 86.[address] Cornelia Smith Work Phone: [facility] Work Phone: 10-15-2021 10:21-0400 Diastolic blood pressure 82 mm[Hg] Dr. Cornelia Smith Work Phone: [facility] Work Phone: 10-15-2021 10:21-0400 Systolic blood pressure 121 mm[Hg] Dr. Cornelia Smith Work Phone: [facility] Work Phone: 03-08-2013 15:13-0500 BP Diastolic 75 mm[Hg] Victoria MILLER Medical [facility] er [facility] Medicine [facility] Orth[facility] Work Phone: 03-08-2013 15:13-0500 BP Systolic 114 mm[Hg] Victoria MILLER Medical [facility] er [facility] Work Phone: 03-08-2013 15:13-0500 Pulse (Heart Rate) 70 /min Victoria Tomlinson [facility] Work Phone: 03-08-2013 15:13-0500 Weight 73.48 kg Victoria Tomlinson [facility] Medical [facility] er [facility] Work Phone: 08-09-2011 14:47-0400 Height 167.64 cm Victoria Tomlinson [facility] Medical [facility] er [facility] Work Phone: Encounters Encounter Date Encounter Type Care Provider Facility Start: 01-25-2025 ambulatory Cornelianini Smith Facility:[facility] Start: 01-01-2025 End: 01-01-2025 ambulatory Ann Vazquez Facility:[facility] Start: 12-18-2024 End: 12-18-2024 ambulatory Skylar Chester Facility:[facility] Start: 10-31-2024 End: 10-31-2024 ambulatory Ann Vazquez Facility:[facility] Start: 09-11-2024 Encounter for gynecological examination (general) (routine) with abnormal findings Skylar Chester [facility] Start: 09-11-2024 End: 09-11-2024 ambulatory Cornelia Smith Facility:[facility] Start: 08-24-2024 End: 08-24-2024 ambulatory Ann Vazquez Facility:[facility] Start: 07-20-2024 ambulatory Ann Vazquez Facilit y:[facility] Start: 06-13-2024 ambulatory Cornelia Sarah Facility:[facility] Start: 06-13-2024 End: 06-13-2024 [facility] Start: 06-08-2024 End: 06-08-2024 ambulatory Ann Vazquez Facility:[facility] Start: 05-10-2024 End: 05-10-2024 ambulatory Ann Vazquez Facility:[facility] Start: 04-10-2024 End: 04-10-2024 ambulatory Ann Vazquez Facility:[facility] Start: 03-08-2024 End: 03-08-2024 ambulatory Cornelia Smith Facility:[facility] Start: 03-08-2024 End: 03-08-2024 [facility] Start: 03-05-2024 End: 03-05-2024 ambulatory Ann Vazquez Facility:[facility] Start: 06-28-2023 End: 06-28-[address] Cornelia Smith Work Phone: [facility] Work Phone: Start: 06-28-[address] Cornelia Smith Work Phone: [facility]-Physical Therapy Work Phone: Start: 06-25-2023 End: 06-25-[address] Cornelia Smith Work Phone: [facility] Work Phone: Start: 06-25-2023 End: 06-25-[address] Cornelia Smith Work Phone: [facility]-MRI - [facility] Work Phone: Start: 06-15-[address] Cornelia Smith Work Phone: [facility]-Physical Therapy Work Phone: Start: 06-14-2023 End: 06-14-[address] Cornelia Smith Work Phone: [facility] Work Phone: Start: 06-14-2023 End: 06-14-[address] Cornelia Smith Work Phone: [facility] Work Phone: Start: 06-14-2023 End: 06-14-[address] Cornelia Smith Work Phone: [facility]-Radiology, [facility] Work Phone: Start: 05-16-2023 End: 05-16-[address] Cornelia Smith Work Phone: [facility] Work Phone: Start: 05-16-2023 End: 05-16-[address] Cornelia Smith Work Phone: [facility]-Laboratory, Specimen Work Phone: Start: 05-16-2023 End: 05-16-[address] Cornelai Smith Work Phone: [facility] Work Phone: Start: 05-10-2023 End: 05-10-[address] Cornelia Smith Work Phone: [facility]-Laboratory Work Phone: Start: 12-17-2022 End: 12-17-2022 ambulatory [facility] Work Phone: Start: 12-17-2022 End: 12-17-2022 Discharged Recurring [facility]-Physical Therapy Work Phone: Start: 12-17-2022 Registered Recurring [facility]-Physical Therapy Work Phone: Start: 12-14-2022 End: 12-14-2022 ambulatory [facility] Work Phone: Start: 12-14-2022 End: 12-14-2022 Patient encounter procedure [facility]-Outpatient Breast Imaging Work Phone: Start: 10-26-2022 [facility] Start: 02-16-2022 End: 02-16-[address] Cornelia Smith Work Phone: [facility] Start: 02-08-2022 End: 02-17-[address] Cornelia Smith Work Phone: [facility] Work Phone: Start: 02-08-2022 End: 02-17-[address] Cornelia Smith Work Phone: [facility]-Nutritional Services Start: 01-08-[address] [facility] Start: 01-04-2022 End: 01-04-[address] Cornelia Smith Work Phone: [facility] Start: 12-31-2021 End: 01-18-[address] Cornelia Smith Work Phone: [facility] Work Phone: Start: 12-31-2021 End: 01-18-[address] Cornelia Smith Work Phone: [facility]-Nutritional Services Start: 12-11-2021 End: 12-11-[address] Cornelia Smith Work Phone: [facility] Work Phone: Start: 12-11-2021 End: 12-11-[address] Cornelia Smith Work Phone: [facility]-Outpatient Breast Imaging Start: 12-03-2021 End: 12-03-[address] Cornelia Smith Work Phone: [facility] Work Phone: Start: 12-03-2021 End: 12-03-[address] Cornelia Smith Work Phone: [facility] Start: 12-01-2021 End: 12-18-[address] Cornelia Smith Work Phone: [facility] Work Phone: Start: 12-01-2021 End: 12-18-[address] [facility] Start: 12-01-[address] Cornelia Smith Work Phone: [facility]-Nutritional Services Start: 11-09-2021 End: 11-18-[address] [facility] Start: 10-23-2021 End: 10-23-[address] Cornelia Smith Work Phone: [facility]-Laboratory Start: 10-16-2021 End: 10-16-[address] Cornelia Smith Work Phone: [facility]-Pulmonary Services/Neurology Start: 10-16-2021 Non-patient / Non-visit Dr. Mariza Smith Work Phone: [facility] Start: 10-15-2021 End: 10-15-[address] Cornelia Smith Work Phone: [facility] Start: 09-17-2021 End: 09-17-2021 Patient encounter procedure [facility]-Laboratory Start: 08-13-2021 End: 08-13-2021 Patient encounter procedure [facility]-Laboratory Start: 04-28-2021 End: 04-28-2021 Patient encounter procedure [facility]-Laboratory Procedures Date Procedure Procedure Detail Performing Clinician Start: 06-25-2023 MRI of lumbar spine Dr. Cornelia Smith Work Phone: Start: 06-14-2023 Plain x-ray of pelvi s and lower extremity Dr. Cornelia Smith Work Phone: Start: 06-14-2023 X-ray of lumbosacral spine Dr. Cornelia Smith Work Phone: Start: 12-14-2022 Screening mammography Start: 12-11-2021 Screening mammography Juanita Smith Work Phone: Start: 12-03-2021 Diagnostic radiograp hy of finger Dr. Cornelia Smith Work Phone: Plan of Treatment Date Care Activity Detail Author Start: 06-28-2023 Patient referral [facility] Work Phone: Start: 06-14-2023 Patient referral [facility] Work Phone: Start: 09-15-2016 End: 09-15-2016 Appointment Appointment [facility] Work Phone: MG Breast - bilatera l Screening [facility] MR Lumbar spine [facility] Patient referral [facility] Work Phone: [facility] Work Phone: Immunizations Immunization Date Immunization Notes Care Provider Edgar andres 01-13-2023 Covid (Spikevax) [facility] 12-16-2022 influenza, injectabl e, quadrivalent, preservative free [facility] 01-06-2022 influenza, injectabl e, quadrivalent, preservative free [facility] 01-06-2022 influenza, seasonal, injectable Dr. Cornelia Smith Work Phone: [facility] Work Phone: 12-04-2021 Covchapo Moderna Bivale nt Booster Dr. Cornelia Smith Work Phone: [facility] 01-21-2021 Covid (Moderna) [facility] 12-31-2020 influenza, injectabl e, quadrivalent, preservative free [facility] 12-31-2020 influenza, seasonal, injectable [facility] Work Phone: 04-21-2020 Covid (Moderna) [facility] 03-24-2020 Covid (Moderna) [facility] 12-26-2019 influenza, injectabl e, quadrivalent, preservative free [facility] 12-26-2019 influenza, seasonal, injectable [facility] Work Phone: 12-14-2018 influenza, injectabl e, quadrivalent, preservative free [facility] 12-14-2018 influenza, seasonal, injectable [facility] Work Phone: 12-16-2017 influenza, injectabl e, quadrivalent, preservative free [facility] 12-16-2017 influenza, seasonal, injectable [facility] Work Phone: 12-15-2016 influenza, injectabl e, quadrivalent, preservative free [facility] 12-15-2016 influenza, seasonal, injectable [facility] Work Phone: 12-18-2015 influenza, injectabl e, quadrivalent, preservative free [facility] 12-18-2015 influenza, seasonal, injectable [facility] Work Phone: 01-15-2015 influenza, injectabl e, quadrivalent, preservative free [facility] 01-15-2015 influenza, seasonal, injectable [facility] Work Phone: 12-05-2013 influenza, injectabl e, quadrivalent, preservative free [facility] 12-05-2013 influenza, seasonal, injectable [facility] Work Phone: Payers Date Payer Category Payer Unknown [id number] 2024 Self-pay [id number] 2023 Unknown [id number] [facility] [id number] 2016 Unknown [id number] Unknown [id number] 2.16.8 [id number] Unknown [id number] 2.16.8 [id number] Unknown [id number] 2.16.8 [id number] Unknown [id number] 2.16.8 [id number] Unknown [id number] 2.16.8 [id number] Unknown [id number] 2.16.8 [id number] Unknown [id number] 2.16.8 [id number] Unknown [id number] 2.16.8 [id number] Unknown [id number] 2.16.8 [id number] Unknown [id number] 2.16.8 [id number] Unknown [id number] 2.16.8 [id number] Unknown [id number] 2.16.8 [id number] Unknown [id number] 2.16.8 [id number] Unknown [id number] 2.16.8 [id number] Unknown [id number] 2.16.8 [id number] Unknown [id number] 2.16.8 [id number] Social History Date Type Detail Facility Start: 2020 End: 07-23-2022 Tobacco smoking status NHIS Unknown if ever smoked [facility] Start: 1965 Sex Assigned At Female [facility] Clinical Notes 03-01-2023 to 05-16-2023 Note Date & Type Note Facility 05-16-2023 Note [facility] Pap Smear Specimen Adequacy May 16, 2023 11:59pm Comment . Satisfactory for evaluation. Endocervical and/or squamous metaplasticcells (endocervical component) are present. Comment on above: Satisfactory for keren luation. Endocervical and/or squamous metaplasticcells (endocervical component) are present. 05-16-2023 Note [facility] Pap Smear Specimen Adequacy May 17, 2023 12:59am Comment . Satisfactory for evaluation. Endocervical and/or squamous metaplasticcells (endocervical component) are present. Comment on above: Satisfactory for keren luation. Endocervical and/or squamous metaplasticcells (endocervical component) are present. 05-16-2023 Note [facility] Pap Smear Specimen Adequacy May 17, 2023 12:59am Comment . Satisfactory for evaluation. Endocervical and/or squamous metaplasticcells (endocervical component) are present. Comment on above: Satisfactory for keren luation. Endocervical and/or squamous metaplasticcells (endocervical component) are present. 03-01-2023 Discharge summary Note Date/Time March 01, 2023 8:33am [facility] Physical Therapy [facility] [address] [place] [address] / REHABILITATION SERVICES DISCHARGE SUMMARY MR#: [id number] Acct: [id number] Name: SHIRA GIBSON Rep #: [id number] : 1965 57 From: Torsten Cuellar PT, ATC Referring Dr.: Dr. Cornelia Smith DO Status: REG RCR Insurance: [employer]/[facility] SELF PAY INSURANCE Discharge Summary D/C summary: It has been my pleasure to treat SHIRA GIBSON referred by Dr. Cornelia Smith DO, with the diagnosis of LBP for a total of 8 visit(s). Discharge Date: Please see the following information for a summary of their discharge status. Subjective Subjective: I dont really have pain, just some tightness Pain Low back: Pain Intensity (Out of 10): 0 Overall Improvement % Improvement: 90 Objective Objective/Function: LBP ranges from 0-2/10 Pt is both verbally and physically aware and demonstrates appropriate posture atthis time Pt is I with a gym and HEP Pt has full pain-free L/S ROM Pt has achieved all Rx goals Goals Goal 1:: Decrease LBP x 50% to aid with sleep Goal Progress: Goal Met Goal 2:: Pt will be I with a core strengthening program to prevent future episodes of LBP Goal Progress: Goal Met Goal 3:: Pt will demonstrate both verbally and physically proper posture to aid with preventing future episodes of LBP Goal Progress: Goal Met Goal 4:: Pt will display full lumbar spine extension ROM to aid with more easilyobtaining proper posture and lifting techniques. Goal Progress: Goal Met Plan Plan: Discharge D/C Information d/c sentence: If there are questions or concerns regarding this patient's physical therapy, please feel free to call me at [phone]. Thank you for the referral of thispatient. Sincerely, Torsten Cuellar, PT, ATC Balance/Gait/Functional tests Balance/Special Test Scores Oswestry Low Back Score: 0 Improvement % Improvement: 90 <Electronically signed by Torsten Cuellar PT, ATC> 03/01/23 9535 CC: Dr. Cornelia Smith, DO ~ [facility] Signed [facility] Work Phone: evaluation noteNo assessment information available [facility] Work Phone: evaluation note* Diagnosis Onset Date Resolution Status Chest pain acute Climacteric acute Other obesity acute [facility] Work Phone: evaluation note* Diagnosis Onset Date Resolution Status Chest pain acute Climacteric acute Other obesity acute Climacteric acute Other obesity acute Psoriatic arthritis acute [facility] Work Phone: evaluation note* Diagnosis Onset Date Resolution Status Climacteric acute Other obesity acute Psoriatic arthritis acute Body mass index (BMI) of 31.0 to 31.9 in adult acute Other obesity acute [facility] Work Phone: evaluation note* Diagnosis Onset Date Resolution Status Body mass index (BMI) of 31.0 to 31.9 in adult acute Climacteric acute Other obesity acute Encounter for routine gynecological examination noneactive [facility] Work Phone: evaluation note* Diagnosis Onset Date Resolution Status Body mass index (BMI) of 31.0 to 31.9 in adult acute Climacteric acute Other obesity acute Encounter for routine gynecological examination noneactive Lumbar radiculopathy acute [facility] Work Phone: evaluation note* Diagnosis Onset Date Resolution Status Body mass index (BMI) of 31.0 to 31.9 in adult acute Climacteric acute Other obesity acute Encounter for routine gynecological examination noneactive Lumbar radiculopathy acute Lumbar disc herniation acute [facility] Work Phone: Hospital Discharge instructionsAmbulatory Orders* Pain Management Location: None Selected [facility] Work Phone: Family History No Family History Records Found Relationship Condition Age at Onset Recorded Date/T ace father Arthritis Unknown Malignant neoplasm Unknown Myocardial infarction Unknown Cardiac disease Unknown mother Arthritis Unknown Osteoporosis Unknown Disorder of thyroid Unknown sister Disorder of thyroid Unknown Advance Directives No Advanced Directives Records Found Advance Directive Response Recorded Date/ Time Living Will No December 06, 2017 11:24am Power of Commercial [employer] No November 11:24am Advance Directive Response Recorded Date/ Time Living Will No December 06, 2017 10:24am Power of Commercial [employer]line [employer] No November 10:24am Chief Complaint and Reason for Visit Chief Complaint New pt, discuss trudy ods and Menopause CP CP OBESITY, PSORIATIC ARTHRITIS OBESITY, PSORIATIC ARTHRITIS 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 Reason for Visit Chest pain Climacteric Other obesity Chief Complaint New pt, discuss trudy ods and Menopause CP CP OBESITY, PSORIATIC ARTHRITIS OBESITY, PSORIATIC ARTHRITIS 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 Reason for Visit Chest pain Climacteric Other obesity Chief Complaint New pt, discuss trudy ods and Menopause CP CP OBESITY, PSORIATIC ARTHRITIS OBESITY, PSORIATIC ARTHRITIS 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 OBESITY, PSORIATIC ARTHRITIS 3 mo 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 Chest pain Climacteric Other obesity Climacteric Other obesity Psoriatic arthritis Chief Complaint OBESITY, PSORIATIC A RTHRITIS OBESITY, PSORIATIC ARTHRITIS 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 OBESITY, PSORIATIC ARTHRITIS 3 mo f/u 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 OBESITY, PSORIATIC ARTHRITIS Wt/BP check Adipex Reason for Visit Climacteric Other obesity Psoriatic arthritis Body mass index (BMI) of 31.0 to 31.9 in adult Other obesity Chief Complaint 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 BACK PAIN RX HERE REQUESTS TORSTEN/SONAL Chief Complaint E-ORDER Annual (SEAM [employer]WER) Reason for Visit Body mass index (BMI ) of 31.0 to 31.9 in adult Climacteric Other obesity Encounter for routine gynecological examination Chief Complaint E-ORDER Annual (SEAM SEWER) HIP PAIN low back pain LBP./RX TO BE FAXED Reason for Visit Body mass index (BMI ) of 31.0 to 31.9 in adult Climacteric Other obesity Encounter for routine gynecological examination Lumbar radiculopathy Chief Complaint E-ORDER Annual (SEAM SEWER) HIP PAIN low back pain RADICULOPATHY LBP./RX TO BE FAXED LUMBAR SPINE Reason for Visit Body mass index (BMI ) of 31.0 to 31.9 in adult Climacteric Other obesity Encounter for routine gynecological examination Lumbar radiculopathy Lumbar disc herniation Chief Complaint SCREENING BACK PAIN RX HERE REQUESTS TORSTEN/SONAL Summary Purpose Additional Source Comments Goals (unrecognized section and content) Goals may be documented in a n alternate sectionGoals may be documented in an alternate sectionGoals may be documented in an alternate sectionGoals may be documented in an alternate sectionGoals may be documented in an alternate sectionGoals may be documented in an alternate sectionGoals may be documented in an alternate sectionGoals may be documented in an alternate sectionGoals may be documented in an alternate sectionGoals may be documented in an alternate sectionGoals may be documented in an alternate sectionGoals may be documented in an alternate section Care Teams (unrecognized sec tion and content) Team Status: Active Member Role Status Dates Dr. Cornelia Smith DO Family Provider Active Dr. Cornelia Smith DO Primary Care Provider Active Team Status: Active Member Role Status Dates Dr. Cornelia Smith DO Primary Care Provider Active Health Risk Assessment Attending Provider, Referring P rovider Active Team Status: Active Member Role Status Dates Dr. Cornelia Smith DO Primary Care Provide r, Attending Provider, Referring Provider Active Team Status: Inactive Member Role Status Dates Dr. Cornelia Smith DO Primary Care Provide r, Attending Provider, Referring Provider Active Team Status: Inactive Member Role Status Dates Dr. Cornelia Smith DO Primary Care Provider, Referring P rovider Active Dr. Skylar Chester MD Attending Provider Active Team Status: Inactive Member Role Status Dates Dr. Cornelia Smith DO Primary Care Provider Active Dr. Skylar Chester MD Attending Provider, Referr ing Provider Active Team Status: Inactive Member Role Status Dates Dr. Cornelia Smith DO Primary Care Provider Active Dr. Skylar Chester MD Attending Provider Active Team Status: Inactive Member Role Status Dates Dr. Cornelia Smith DO Primary Care Provider, Referring P rovider Active Dr. Robin Carlos MD Attending Provider Active Team Status: Inactive Member Role Status Dates Dr. Cornelia Smith DO Primary Care Provider Active Dr. Robin Carlos MD Attending Provider, Referring Pr ovider Active Team Status: Active Member Role Status Dates Dr. Cornelia Smith DO Primary Care Provider Active Dr. Robin Carlos MD Attending Provider, Referring Pr ovider Active INFORMATION SOURCE (unrecogn ized section and content) DATE CREATED AUTHOR 01/28/2025 [facility] FOR RECORDS PERTAINING TO PATIENTS WHO ARE [...] BE BASED ON THE PRIMARY CLINICAL RECORDS. [facility]. provides no warranty or guarantee of the accuracy or completeness of information in this document.
[2025-02-27 04:07] LABS: PROGESTERONE 0.1 ng/mL (.)
[2025-03-03 13:07] LABS: Testosterone, % Free 1.10 % (0.50-2.80); Testosterone, Free <.03 ng/dL (0.10-0.85)
== END | disposition home or self-care (01) ==
LOC: LAB 07:30
PROVIDERS: PCP Family Medicine; Referring Provider Family Medicine; Visit Provider Family Medicine
DX: N95.1 Menopausal and female climacteric states (principal); Z51.81 Encounter for therapeutic drug level monitoring
CPT/HCPCS: 36415; 82670; 84144; 84402; 84403